=== PATIENT | female | born 1930 | race Caucasian/White ===

== ENCOUNTER 2016-10-29 20:59 | Emergency (ER) | payer MEDICARE ==
--- NOTE | 2016-10-29 22:06 | ED ---
Burn - HPI Summary HPI Summary: 86 female presents with complaints of a burn on her right back shoulder after falling asleep on a heating pad. Patient states she has not looked at it however was unable to lay down in bed because of the burning and sensitivity. Patient states she always uses her heating pad for a sore back but she forgot to turn it off before falling asleep earlier this afternoon 10/29/16. When she woke up it was on burning on her right shoulder. Denies any weeping. Has no other complaints of this time. +Hypertension. She put vasoline on the area prior to arrival. - History of Current Complaint Chief Complaint: EDBurnSmokeInh Stated Complaint: MARQUEZ ON UPPER BACK FROM HEATING PAD Time Seen by Provider: 10/29/16 21:13 Hx Obtained From: Patient Occurred: Hours Ago Length of Exposure: Hours Onset Severity: Mild Current Severity: Mild Pain Intensity: 8 Pain Scale Used: 0-10 Numeric Location: RUE - back right shoulder blade Character: Direct Thermal Contact - from a heating pad Aggravating: Nothing Alleviating: Nothing Associated Signs & Symptoms: Positive: Negative - Allergy/Home Medications Allergies/Adverse Reactions: Allergies Allergy/AdvReac Type Severity Reaction Status Date / Time Penicillins Allergy Intermediate Hives Verified 12/03/15 11:05 PMH/Surg Hx/FS Hx/Imm Hx Endocrine/Hematology History: Denies: Hx Diabetes, Hx Systemic Lupus Erythematosus Cardiovascular History: Reports: Hx Hypertension - ON DAILY MEDS Denies: Hx Congestive Heart Failure Respiratory History: Reports: Other Respiratory Problems/Disorders - radiation left side neck 2011 History: Denies: Hx Dialysis, Hx Renal Disease Musculoskeletal History: Reports: Hx Arthritis - HANDS, Other Musculoskeletal History - back pain and surgery, hx bilat wrist fx Denies: Hx Rheumatoid Arthritis, Hx Scoliosis Sensory History: Reports: Hx Cataracts - BILATERAL, Hx Contacts or Glasses - GLASSES Opthamlomology History: Reports: Hx Cataracts - BILATERAL, Hx Contacts or Glasses - GLASSES Neurological History: Reports: Other Neuro Impairments/Disorders - RADIATION AND CHEMO 2012 FOR LYMPHOMA Denies: Hx Headaches - Cancer History Cancer Type, Location and Year: breast ca left, basal cell, lymphoma Hx Chemotherapy: Yes - LYMPHOMA 2011 Hx Radiation Therapy: Yes - BREAST 1986,LYMPHOMA 2011 - Surgical History Surgery Procedure, Year, and Place: hysterectomy 1978 [facility] ,lumpectomy left BREAST [facility], [id number] BILATERAL CATARACTS [id number] HERNIATED LUMBER DISK [facility] [place] Anesthesia Reactions: No Infectious Disease History: No Infectious Disease History: Denies: Traveled Outside the [place] in Last 30 Days - Social History Alcohol Use: Rare Alcohol Amount: FEW DRINKS A YEAR, SPECIAL OCCASSIONS Substance Use Type: Reports: None Smoking Status (MU): Never Smoked Tobacco Have You Smoked in the Last Year: No Review of Systems Constitutional: Negative Eyes: Negative ENT: Negative Cardiovascular: Negative Respiratory: Negative Musculoskeletal: Negative Positive: Other - burn Neurological: Negative Psychological: Normal All Other Systems Reviewed And Are Negative: Yes Physical Exam Triage Information Reviewed: Yes Vital Signs On Initial Exam: Initial Vitals Temp Pulse Resp BP Pulse Ox 98.3 F 84 16 190/82 100 10/29/16 21:08 10/29/16 21:08 10/29/16 21:08 10/29/16 21:08 10/29/16 21:08 Patient is due for another dose of HTN medication around 7am. Patient's BP will be re-taken and monitored. Vital Signs Reviewed: Yes Appearance: Positive: Well-Appearing, No Pain Distress, Well-Nourished Skin: Positive: Warm, Skin Color Reflects Adequate Perfusion, Heat Injury - area of complaint is back right shoulder blade. No erythema, edema, weeping, rash or discoloration noted. Skin is intact. no sores noted. patient states it is somewhat tender/sensitive to touch.. Negative: Scaly Skin/Lesions, Weeping Skin/Lesions, Erythema @ Head/Face: Positive: Normal Head/Face Inspection Eyes: Positive: Normal ENT: Positive: Normal ENT inspection Neck: Positive: Supple, Nontender, No Lymphadenopathy Respiratory/Lung Sounds: Positive: Clear to Auscultation, Breath Sounds Present Cardiovascular: Positive: Normal, RRR, Pulses are Symmetrical in both Upper and Lower Extremities Abdomen Description: Positive: Nontender Musculoskeletal: Positive: Normal, Strength/ROM Intact Neurological: Positive: Normal, Sensory/Motor Intact, Alert, Oriented to Person Place, Time Psychiatric: Positive: Normal Burn Calculation - Trunk / Post. 18% Trunk /Post. 1st De - right shoulder blade, no signs of burn however sensitivity - Total 1st Deg Total: 2 Total % BSA: 2 - [place] Formula for Fluid Resuscitation Weight: 122 lb 24 -Hour Fluid Replacement: 0.0 Diagnostics - Vital Signs Vital Signs Temp Pulse Resp BP Pulse Ox 10/29/16 21:08 98.3 F 84 16 190/82 100 - Laboratory Lab Statement: Any lab studies that have been ordered have been reviewed, and results considered in the medical decision making process. Burn Course/Dx - Course Course Of Treatment: patient will be given a lidoderm patch to help with pain and burning. told to machine operator picker some aloe-vera or honey and to use it on area of sensitivity/burn. Encouraged not to use heating pad or any hot compresses/water on the area. aware of worsening signs and symptoms and educated on shingles in case this may be the start of it and if it wasn't the heating pad. no signs of burn or rash noted on physical exam at this time. - Diagnoses Provider Diagnosis: Superficial burn, Skin sensitivity Discharge - Discharge Plan Condition: Stable Disposition: HOME Patient Education Materials: Superficial Burn (ED) Referrals: Hamzah Suarez MD [Primary Care Provider] - Additional Instructions: Use over the counter Aloe-Vera, honey or antibiotic cream to help sooth burn. You may use cool/room temperature compresses however do not use very hot or very cold compresses. Do not use heating pad. Treat as as a sun burn, it will be sensitive. If symptoms worsen or you develop persistent burning with discharge, reddening, rash or fever/chills please seek medical attention.
[2016-10-29] MEDS ORDERED: Lidocaine PATCH 5%* 1 PATCH TRANSDERM ONE (22:08)
[2016-10-29 23:19] VITALS: BP 160/79
[2016-10-30] MEDS ORDERED: Lidocaine Patch REMOVE* 1 NOTE MISC SCH (21:00)
== END 2016-10-29 23:11 | disposition home or self-care (01) ==
LOC: ED 20:59
DX: T22.151A Burn of first degree of right shoulder, initial encounter (principal); M25.511 Pain in right shoulder; X08.8XXA Exposure to other specified smoke, fire and flames, initial encounter; Y93.9 Activity, unspecified; Y92.9 Unspecified place or not applicable; Y99.9 Unspecified external cause status
CPT/HCPCS: 99281; A9270-GY

== ENCOUNTER 2017-03-09 16:31 | Observation (INO) | payer MEDICARE ==
--- NOTE | 2017-03-09 17:13 | RAD ---
Indication: Code Tovar. Neurological changes. History of lymphoma Comparison: No relevant prior exams available on the [facility] [place] [facility] PACS for comparison. Technique: Noncontrast CT vertex of skull through foramen magnum. Report: Negative for intra or extra-axial hemorrhage. Negative for moreira matter white matter obscuration, intra or extra-axial hemorrhage, or mass effect. Decreased density in the periventricular and subcortical white matter while non-specific is most likely due to chronic microangiopathy. Moderate prominence of the cerebral sulci and cerebellar fissures reflecting atrophy. Unremarkable ventricles and basal cisterns. Unremarkable orbital contents. No suspicious calvarial or skull base lesion evident. Grossly clear visualized paranasal sinuses and mastoid air spaces. Unremarkable scalp. IMPRESSION: 1. Negative for intracranial hemorrhage or compelling CT stigmata of acute ischemic stroke. 2. Mild to moderate involutional change and stigmata of chronic small vessel ischemic disease. 3. No acute intracranial process evident. Results discussed with Dr. Lua 03/09/2017 5:09 PM EDT
--- NOTE | 2017-03-09 17:19 | RAD ---
Indication: Speech difficulty, confusion. Code moreira. History of lymphoma. Comparison: April 16, [address] Technique: Sitting AP 1702 hours Report: Elevated lung volumes and both diffuse mild prominence of the interstitial markings and patchy rarefaction of the mid to upper lung zone interstitial markings. Costochondral calcifications noted most prominent at the LEFT lower lung zone. No focal pulmonary lesions, alveolar consolidation, pleural effusion, pneumothorax. The heart, pulmonary vasculature, and mediastinal contours are unremarkable. No suspicious focal osseous lesions evident. IMPRESSION: Stigmata of obstructive lung disease. No acute pulmonary or cardiac process evident.
[2017-03-09 17:29] LABS: Hematocrit 38 % (35-47); Hemoglobin 12.8 g/dl (12.0-16.0); Mean Corpuscular HGB Conc 34 g/dl (31-36); Mean Corpuscular Hemoglobin 31 pg (27-31); Mean Corpuscular Volume 92 fL (80-97); Mean Platelet Volume 8 um3 (7.4-10.4); Red Cell Distribution Width 13 % (10.5-15); White Blood Count 4.4 10^3/ul (3.5-10.8)
[2017-03-09] MEDS ORDERED: Metoprolol Tartrate IV* 1 MG/ML 5 ML VIAL IV ONE (17:34)
[2017-03-09 17:44] LABS: Albumin 4.4 g/dL (3.2-5.2); BUN/Creatinine Ratio 17.3 (8-20); Calcium 9.4 mg/dL (8.6-10.3); EGFR African American 93.8 (>60); EGFR Non-African American 72.9 (>60); Globulin 2.1 g/dL (2-4); HDL Cholesterol 72.4 mg/dL; Potassium 3.8 mmol/L (3.5-5.0); Total Bilirubin 0.5 mg/dL (0.2-1.0); Total Protein 6.5 g/dL (6.4-8.9)
[2017-03-09 17:46] LABS: Urine Bilirubin Negative (Negative); Urine Glucose Negative (Negative); Urine Nitrite Negative (Negative)
--- NOTE | 2017-03-09 18:25 | ED ---
Progress - Progress Note Progress Note: Pt signed out by Dr. Lua. She presents w/ an aphasia episode this morning - difficulty finding her words. This lasted for a few hours then resolved. Daughter woke a few hours later and did not observe pt w/ language difficulty, but reports pt was confused about some things (ie. programming remote control, forgetful during shopping) and just "didn't seem herself". Pt denies headache, visual change, weakness and daughter denies slurred speech, facial droop or balance issue. Her BP was found to be quite elevated here today - repeat BP after receiving IV lopressor resulted in drop from 219 systolic to 184. Pt has been taking home meds as directed w/o changing doses or missing a doses. Takes HCTZ and Na is low today (128 - she has been here multiple times before) Chloride is also low at 96. Otherwise, labs are unremarkable. CXR normal. ECG reveals a PAC and recurrent finding of mild ST elevation in V1 seen on previous ECG from 2007 and unchanged - otherwise NSR. Denies NSAID use. No recent injuries to report. Only new sx is feeling cold more than usual yesterday and today. She was found to have Lt finger dysmetria while here tonight and so CT brain was performed. This was WNL. Pt has h/o multiple CA's but no cardiac nor neuro pathology in her hx other than HTN - her trends indicates levels ranging from 140's-170's - 190's is highest on record prior to today. Spoke w/ Dr. Willis, neurology, who suggested diff dx of TIA, CVA, HTN encephalopathy, and seizure. Pt does not require any STAT testing beyond what's already been ordered at the moment but may benefit from MRI w/wo gadolinium tonight and EEG tomorrow morning. She agrees to see pt for consult. Also spoke w/ Wes Rodriguez, REHABILITATION MANAGER, who agrees to consult for admission so observation and testing may be continued. Pt and daughter agree w/ plan. Pt in stable condition upon transferring care to hospital team for admission as mentioned above. Course/Dx - Diagnoses Provider Diagnoses: CVA (cerebral vascular accident), Hypertensive urgency
[2017-03-09] MEDS ORDERED: hydrALAZINE IV* 20 MG/ML VIAL IV SLOW PU PRN (18:37)
[2017-03-09] MEDS ORDERED: Aspirin Low Dose CHEW TAB* 81 MG PO ONE (18:37)
[2017-03-09] MEDS ORDERED: Ondansetron INJ* 2 MG/ML VIAL IV PRN (18:37)
[2017-03-09] MEDS ORDERED: Iohexol 350* (CONTRAST) 500 ML MDV IV ONE (18:46)
[2017-03-09 19:11] LABS: TSH (Thyroid Stimulating Horm) 1.69 mcIU/mL (0.34-5.60)
[2017-03-09] MEDS ORDERED: Gadoteridol* (CONTRAST) 279.3 MG/ML 10 ML IV ONE (19:20)
--- NOTE | 2017-03-09 20:04 | RAD ---
Indication: TIA with episode of difficulty finding words. History of breast cancer. Comparison: March 09, 2017 CT. Technique: [email or web address] 1.5 Chayo [id number] with GEM suite. MRI brain without and with contrast. 10 mL ProHance administered IV. Report: Diffusion series is negative for acute or subacute ischemia. Susceptibility series is negative for stigmata of hemosiderin deposition to indicate previous hemorrhage. Mild prominence of the cerebral sulci and cerebellar fissures reflecting atrophy. Unremarkable ventricles and basal cisterns. No intra or extra-axial fluid collection evident. Moderately severe burden of periventricular and subcortical white matter T2/FLAIR hyperintensities without mass effect or enhancement. No intra or extra-axial enhancing lesions evident. Preserved major intracranial flow-voids. Unremarkable orbital contents. Clear paranasal sinuses and mastoid air spaces. No suspicious calvarial or skull base lesion evident. Unremarkable scalp. IMPRESSION: 1. No evidence for acute or subacute ischemia. 2. No evidence for intra or extra-axial metastatic lesions. 3. Involutional change and periventricular and subcortical white matter signal abnormalities without enhancement or mass effect while not specific most likely reflecting chronic small vessel ischemic disease.
[2017-03-09] MEDS: Heparin VIAL(*) 5000 UNITS/ML VIAL (FIVE THOUSAND) SUBCUT SCH (21:36)
--- NOTE | 2017-03-09 22:42 | RAD ---
INDICATION: TIA. Resolved symptoms. COMPARISON: No relevant prior exams available on the [facility] PACS for comparison. TECHNIQUE: Multidetector CT images were obtained from the aortic arch to the vertex of the head with 80 mL Omnipaque 350 IV contrast. Arterial phase of enhancement. Multiplanar reformation including maximum intensity projection. 3-D arterial volume rendering. Stenosis estimations based on denominator of distal arterial diameter. NECK ANGIOGRAM REPORT: Linear scarring at the lung apices. Normal configuration of the branch vessels at the aortic arch. Calcific and noncalcific plaque results in long segment approximate 60% stenosis of the LEFT subclavian artery. Mild calcific and noncalcific plaque at the RIGHT carotid bulb and proximal internal carotid artery results in approximate 20% stenosis. Negative for significant atherosclerotic plaque at the LEFT carotid bifurcation. The internal carotid arteries are tortuous. Artifact from dense contrast in the RIGHT subclavian vein and reflux contrast to the RIGHT internal jugular vein obscures the origin of the RIGHT vertebral artery. Normal opacification of the nonobscured segment of the RIGHT vertebral artery without evidence for stenosis or occlusion. Patent tortuous LEFT vertebral artery. NECK ANGIOGRAM IMPRESSION: 1. Negative for hemodynamic significant carotid stenosis. 2. Patent vertebral arteries with limited assessment of the proximal segment of the RIGHT vertebral artery due to artifact as noted. 3. 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 HEAD ANGIOGRAM REPORT: Unremarkable intracranial internal carotid arteries as well as the M1 and M2 segments of the middle cerebral arteries and A1 and A2 segments of the anterior cerebral arteries. Suggestion of a patent anterior communicating artery. Unremarkable basilar artery and cerebellar artery origins. Patent posterior cerebral arteries are supplied primarily by the posterior circulation with normal variant hypoplastic posterior communicating arteries. No intracranial aneurysm or vascular malformation evident. Normal opacification of the dominant dural venous sinuses. HEAD ANGIOGRAM IMPRESSION: Normal variation without pathologic finding of the dominant central intracranial arterial vasculature. Negative for central large vessel arterial stenosis or occlusion. Negative for intracranial aneurysm. CPT II: CPT II Codes: 3100F
--- NOTE | 2017-03-10 04:02 | HP ---
CC: Dr. Jacobsen; Dr. Willis * HISTORY AND PHYSICAL: DATE OF ADMISSION: 03/09/17 PRIMARY CARE PROVIDER: Dr. Jacobsen. ATTENDING PHYSICIAN: Jens Thomas MD * (DICTATED BY JEFF HERNANDES NP) CHIEF COMPLAINT: Trouble with speech. HISTORY OF PRESENT ILLNESS: Ms. Ravi is an 87-year-old female patient. She has a history of breast cancer, lymphoma, hypothyroidism, and a history of hypertension. She comes in to the ER today stating that this morning it was noticed that she was having trouble getting her words out. She knew what she wanted to say, but her speech was slower than her baseline and she had some associated left arm numbness. She is right handed. She said that she did not have any facial drooping. No slurring of the words. There was no word salad. She denied having any weakness to one side. No trouble with gait. There was no fevers or chills. No shortness of breath. No abdominal pain. She denied having any nausea. She was concerned though to the point because she thought there was something wrong. The daughter noted that she appeared to be confused. She called her primary and they referred her to the ER. She was evaluated down here. When she came here, it was noted that her blood pressure initially was 219/95 and there was concern because she appeared to have some ataxia on the left upper extremity and because of this, we were asked to evaluate for admission. PAST MEDICAL HISTORY: Significant for: 1. Breast cancer. 2. Lymphoma. 3. Hypothyroidism. 4. Hypertension. PAST SURGICAL HISTORY: 1. She has had a lumpectomy. 2. Hysterectomy. 3. Back surgery. HOME MEDICATIONS: Include: 1. Oxycodone 5 mg p.o. b.i.d. as needed. 2. Lisinopril 30 mg p.o. daily. 3. Synthroid 50 mcg daily. 4. Hydrochlorothiazide 12.5 mg p.o. every other day. 5. Gabapentin 300 mg in the morning, 600 mg at bedtime. ALLERGIES TO MEDICATIONS: Include PENICILLIN. FAMILY HISTORY: Mother had a history of cancer. Father had a history of coronary artery disease. SOCIAL HISTORY: Does not smoke. She does not drink. She lives alone. Surrogate decision maker is her daughter. REVIEW OF SYSTEMS: There is no documented fever. She denied having any significant weight change. There was no double vision. Denied having any ear discharge. No rhinorrhea. No sore throat. No thyroid enlargement. Denied having any chest pain. No orthopnea. No nocturnal dyspnea. There is abdominal pain. No nausea. No vomiting. No dysuria. No frequency. No seizure. No loss of consciousness. No pruritus and no skin ulcerations. Review of 14 systems completed, all others negative. PHYSICAL EXAMINATION GENERAL: At this time, Ms. Ravi is an 87-year-old female patient. She appears to be well nourished, well developed. She does not appear to be in any acute distress. VITAL SIGNS: Now, blood pressure 174/80, pulse of 64, respirations 19, O2 sat 96%, and temperature 98.9. HEENT: Head is atraumatic and normocephalic. Eyes: EOMs are intact. Sclerae were anicteric and not pale. Throat: Oral mucosa appears to be moist. No oropharyngeal erythema. NECK: Supple. LUNGS: Clear to auscultation bilaterally. No wheezes, rales, or rhonchi. HEART: Sounds S1, S2. Regular rate and rhythm. No murmurs, rubs, or gallops. ABDOMEN: Soft, flat, and nontender. Bowel sounds present. EXTREMITIES: Pulses were 2+ throughout. She is able to move all 4 extremities with 5/5 strength. NEUROLOGIC: The patient is awake, she is alert, and she is oriented x3. Tongue midline. Interior Design Instructor are equal. No gross focal deficits with the exception of finger-to- nose on the left side, there does appear to be a little bit of ataxia. No gross focal deficits. Speech is clear. Cranial nerves II through XII are intact. SKIN: Intact. LABORATORY DATA AND DIAGNOSTIC STUDIES: Revealed WBC of 4.4, RBC of 4.10, hemoglobin 12.8, hematocrit 38, platelet count 216. INR 0.91. PTT of 24.1. Her sodium was 128, potassium 3.8, chloride 96, bicarb 28, BUN 13, creatinine of 0.75, glucose 103, lactate 0.8, calcium 9.4. Total bili 0.5, AST 22, ALT 15 , alk phos 75. Troponin 0.00. Albumin 4.4. Urine was obtained, it was negative. Brain CT also obtained today, which revealed negative for intracranial hemorrhage or CT stigmata of ischemic stroke. Mild to moderate involutional change, stigmata of chronic small vessel ischemic disease. No acute intracranial process. Chest x-ray today revealed stigmata of obstructive lung disease. No acute pulmonary cardiac process evident. EKG showed a sinus rhythm with a PAC, rate of 72, no ST elevation. She did have a little elevation in V1, but she has had this in the past. She did appear to have LVH. Review of previous EKG appears to be similar. Old medical records were reviewed. ASSESSMENT AND PLAN: Ms. Ravi is an 87-year-old female patient coming in to the ER today with complaints of difficulty with word finding and speech, difficulties. On evaluation today, there was concern for possible transient ischemic attack. We were asked to evaluate in consult. She has been admitted under observation status for: 1. Transient ischemic attack versus cerebrovascular accident versus seizure: At this point, Dr. Willis is going to go ahead and evaluate the patient. The plan is to get an MRI with and without contrast because of the history of malignancy to make sure there is not any metastasis to the brain or recurrent disease to the brain. Also look for stroke or transient ischemic attack. I will also get a CTA of the head and neck, echo with bubble study, start her on a baby aspirin. Her LDH was 139. She probably should be started on statin, but I will wait for Dr. Willis's to finish evaluating to discuss this with her. For the time being, certainly also in the differential hypertensive encephalopathy. Blood pressure now is down to 175 systolically. We will try to keep that blood pressure in that range, now between the 140 to 170 range, allow for permissive hypertension in the setting of possible cerebrovascular disease and we will place her on telemetry as well. We will continue to follow. Get frequent neuro checks. 2. Hypertension: Again, I will treat if her systolics get greater than 180. I have ordered p.r.n. hydralazine. We will continue her p.o. medication. 3. Hyponatremia: It is probably secondary to the hydrochlorothiazide usage, but I will check her TSH, cortisol, and I will also check +serum osmolality and urine sodium as well and we will continue to follow. 4. Lymphoma and breast cancer: Follow with her primary. 5. Hypothyroidism: Continue Synthroid. 6. DVT prophylaxis: She will be placed on heparin subcu. 7. Code status: She wishes to be a DNR. 8. Fluids, electrolytes, and nutrition: She can have a heart healthy diet. TIME SPENT: Time spent on the admission was approximately 60 minutes; greater than half the time was spent [id number] with the patient obtaining my history and physical, other half the time spent going over the plan of care with the patient and implementing plan of care. I did discuss the plan of care with my attending, Dr. Thomas; he is in agreement. JEFF HERNANDES, MYKE [id number]/CPS #: [id number]
--- NOTE | 2017-03-10 05:07 | CONS ---
CC: Dr. Caban. CONSULTATION REPORT: DATE OF CONSULT: 03/09/17 CONSULT REQUEST: Consult was requested from the emergency room by Dr. Lua. REASON FOR CONSULT: Difficulty speaking. 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 This morning she got out of bed, got coffee, and about an hour later when she tried to speak she found she had to think about every word she was going to say and this lasted for about 2 hours, and she could get the right words out, but it was difficult for her. Associated with this she had an overall feeling of weakness and decreased confidence, however, no other focal neurological symptoms. In the emergency room, she had blood pressure, which was noted to be as high as 218/102 requiring treatment with Lopressor. At this point, she feels her symptoms have resolved. She denies headache, loss of vision, double vision, change in mood or cognition. No numbness, weakness of arms or legs, change in coordination or gait. She feels her speech is now back to normal. PAST MEDICAL HISTORY: 1. Ms. 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 2. Basal cell carcinoma. 3. Left breast cancer, status post lumpectomy and radiation. 4. Hypertension. 5. Hypothyroidism. 6. Partial thyroidectomy. 7. Hysterectomy. 8. Back surgery at L5 with residual back pain. CURRENT MEDICATIONS: Include: 1. Oxycodone 5 mg p.o. b.i.d. 2. Levothyroxine 50 mcg p.o. daily. 3. Hydrochlorothiazide 12.5 mg p.o. daily. 4. Lisinopril 30 mg p.o. daily. 5. Gabapentin 300 mg p.o. 1 tablet in the morning and 2 tablets at night. ALLERGIES: Include to PENICILLIN, which caused hives. SOCIAL HISTORY: Gertrude Ravi does not smoke, she rarely drinks alcohol. She is here in the emergency room with her daughter. REVIEW OF SYSTEMS: On review of systems, there has been no chest pain, chest pressure, palpitations, shortness of breath, change in bowel or bladder habits. Increased for frequency of urination, burning with urination. There has been no weight loss, drenching night sweats or high fevers of unknown reason. For further review of systems please see HPI. Of note, there has also been no history of rashes or recent skin condition. She has had some bug bites with mosquitoes. PHYSICAL EXAMINATION: On examination, Gertrude Ravi's blood pressure was 174/80, her pulse was 64, her respiratory rate was 19, saturation was 96%, her temperature was 98.9 degrees Fahrenheit. She had a regular cardiac rhythm. Her lungs are clear to auscultation. There was no evidence of peripheral edema. She had good peripheral pulses. There was no evidence of rash or petechiae. She was awake, alert, articulate, had normal language function, adequate fund of knowledge. Her pupils were equal and responsive to light. I had a hard time visualizing her fundi. She had full extraocular movements with no nystagmus and full erickson to confrontation. Her facial expression, sensation , and hearing were equal. Palate was upgoing. Tongue was midline. Sternocleidomastoid and trapezius were 5/5 in strength. There was normal bulk and tone. No pronator drift with full strength in the upper and lower extremities. There was no asymmetry to pinprick, cold, or light touch. Vibration sensation was decreased by about 20 seconds to the large toes. Proprioception was intact. Reflexes were 2+ in the upper extremities, 1+ in the lower extremities and symmetric. There was no dysmetria with finger-to- nose and [id number] movements. Gait was not tested given clinical symptoms and concern regarding TIA/stroke. The patient left examining room to go to MRI scanner. DIAGNOSTIC STUDIES/LAB DATA: Includes CT of the brain, which showed atrophy and small vessel ischemic disease. Her laboratory tests revealed CBC with normal white count, hemoglobin, hematocrit, and platelets. There was slight increase in monocyte percentage at 9.9. Her metabolic panel showed sodium that was low at 128, her chloride was low at 96, and glucose was elevated at 103, lactate was 0.8, troponin was 0. Lipid profile showed total cholesterol of 221, LDL was 139, HDL was 72.4, triglycerides 50, TSH was 1.69. IMPRESSION: Gertrude Ravi is an 87-year-old woman with history of hypertension, as well as history of large cell lymphoma, status post radiation chemotherapy and breast cancer, status post lumpectomy and radiation, who presents with episode of difficulty speaking. The description and the length of the event suggest that there was dysfunction in the dominant hemisphere for unclear reasons. Certainly, TIA stroke is on the differential diagnosis and she is on her way to the MRI scanner and she will be admitted for workup of TIA. She does have a history of radiation to her left neck and I would suggest checking at minimum ultrasound on the carotids to look for stenosis. She was significantly hypertensive coming in today's visit that one cannot exclude a component of hypertension contributing her symptoms. Differential diagnosis also does include seizure, and therefore she is getting an MRI of the brain with contrast to look for underlying neoplasm as well as EEG to look for epileptiform activity. She has received an aspirin in the emergency room. Dr. Bledsoe will be following for the neurology service in the morning. The patient was given education regarding symptoms, differential diagnosis, plan for workup, the change of neurology service to another practitioner in the morning. All questions were answered. TIME SPENT: Over an hour was spent in direct [id number] patient care, and education was provided to both patient and daughter. [id number]/[facility] #: [id number] TJ
[2017-03-10] MEDS: Levothyroxine TAB* 50 MCG TAB PO SCH (05:39)
[2017-03-10] MEDS: Heparin VIAL(*) 5000 UNITS/ML VIAL (FIVE THOUSAND) SUBCUT SCH ×3 (05:39→22:22)
[2017-03-10 06:42] LABS: Hematocrit 36 % (35-47); Hemoglobin 12.3 g/dl (12.0-16.0); Mean Corpuscular HGB Conc 34 g/dl (31-36); Mean Corpuscular Hemoglobin 32 pg (27-31); Mean Corpuscular Volume 92 fL (80-97); Mean Platelet Volume 8 um3 (7.4-10.4); Red Blood Count 3.89 10^6/ul (4.0-5.4); Red Cell Distribution Width 13 % (10.5-15); White Blood Count 3.7 10^3/ul (3.5-10.8)
[2017-03-10 06:56] LABS: BUN/Creatinine Ratio 16.3 (8-20); Calcium 8.8 mg/dL (8.6-10.3); EGFR African American 87.1 (>60); EGFR Non-African American 67.7 (>60); HDL Cholesterol 61.7 mg/dL; Potassium 3.6 mmol/L (3.5-5.0)
[2017-03-10] MEDS: Aspirin Low Dose CHEW TAB* 81 MG PO SCH (08:25)
[2017-03-10] MEDS: Gabapentin CAP(*) 300 MG PO SCH (08:25)
[2017-03-10] MEDS: Lisinopril TAB* 10 MG PO SCH (08:26)
--- NOTE | 2017-03-10 09:56 | ECHO ---
Patient: CATARINO FREITAS [facility] Rec#: [id number] : 1930 Date: 03/10/2017 Age: 87y Height: 162.56 cm / 64.0 in Weight: 56.25 kg / 124.0 lbs Sex: F BSA: 1.6 Room#: 435 Admit Date#: 03/09/2017 Type: Inpatient Referring: Wes Rodriguez NP Reading: Dinah Newton MD Prevention Rn: Darling Bustos RDCS CC: Darling Willis MD CC: Hamzah Suarez MD Transthoracic Echocardiogram Indication: TIA BP: 140/74 HR: 69 Rhythm: NSR Findings History: Breast cancer anf Lymphoma,s/p rad rx and chemotherapy,HTN,hypothyroid. Technical Comments: The study quality is good. Completed at 0815. Left Ventricle: The left ventricular chamber size is normal. Mild concentric left ventricular hypertrophy is observed. Global left ventricular wall motion and contractility are within normal limits. The estimated ejection fraction is 55-60%. Abnormal left ventricular diastolic filling is observed, consistent with impaired relaxation. Left Atrium: The left atrium is moderately dilated. Right Ventricle: The right ventricular cavity size is normal. The right ventricular global systolic function is normal. Right Atrium: The right atrial cavity size is normal. There is no patent foramen ovale visualized. A patent foramen ovale is not demonstrated with color Doppler and agitated contrast. Aortic Valve: The aortic valve is trileaflet. There is mild aortic regurgitation. 2 small jets, one medial, one at the annulus between the RCC and LCC. There is no evidence of aortic stenosis. Mitral Valve: The mitral valve leaflets are mildly thickened. There is mild to moderate mitral regurgitation. There is no evidence of mitral stenosis. Tricuspid Valve: The tricuspid valve leaflets are normal. There is mild tricuspid regurgitation. No pulmonary hypertension is noted. There is no tricuspid stenosis. Pulmonic Valve: The pulmonic valve appears normal. There is trace to mild pulmonic regurgitation. There is no pulmonic stenosis. Pericardium: The pericardium appears normal. Aorta: There is no dilatation of the ascending aorta. There is no dilatation of the aortic arch. There is no dilation of the aortic root. Pulmonary Artery: The main pulmonary artery appears normal. Venous: The inferior vena cava appears normal in size. There is a greater than 50% respiratory change in the inferior vena cava dimension. Contrast: Normal saline was used as contrast for the bubble study. Intravenous contrast was used to help determine presence of intracardiac shunting. Intravenous agitated saline contrast was used to assess intracardiac shunting. Conclusions Mild concentric left ventricular hypertrophy is observed. Global left ventricular wall motion and contractility are within normal limits. The estimated ejection fraction is 55-60%. Abnormal left ventricular diastolic filling is observed, consistent with impaired relaxation. The right ventricular global systolic function is normal. There is mild aortic regurgitation. 2 small jets. There is mild to moderate mitral regurgitation, closer to mild, multiple small jets. There is mild tricuspid regurgitation. No patent foramen ovale demonstrated with color Doppler and agitated contrast. Compared with prior study of 10/08/11, ventricular function is stable, mitral insufficiency has increased from trace, AI is newly noted. Measurements Name Value Normal Range RVIDd (AP) 2D 2.29 cm (0.9 - 2.6) RVDdMajor (2D) 3.1 cm (2.2 - 4.4) RAd ISD 4CH 4.7 cm (3.4 - 4.9) RA (A4C)W 2.9 cm (2.9 - 4.6) IVSd (2D) 1.1 cm (0.6 - 1) LVPWd (2D) 1.11 cm (0.6 - 1) LVIDd (2D) 3.66 cm (3.6 - 5.4) LVIDs (2D) 2.87 cm - LV FS (2D) 21.74 % (25 - 45) EF Teichholz (2D) 44.82 % - Aortic Annulus 1.6 cm (1.4 - 2.6) Ao root diameter (2D) 1.63 cm (2.1 - 3.5) Ascending Ao 2.48 cm (2.1 - 3.4) Aortic arch 2.55 cm (1.8 - 3.4) Descending Ao 0.5 cm - LA dimension (AP) 2D 3.2 cm (2.3 - 3.8) LAd ISD 4CH 4.1 cm (2.9 - 5.3) LA ISD 4CH W 4.2 cm (2.5 - 4.5) Name Value Normal Range LA ESV SP 4CH (A/L) 65.98 ml - LA ESV SP 2CH (A/L) 66.1 ml - LA ESV BP (A/L) 67.33 ml - LA ESV BP (A/L) index 33.07 ml/m2 - LA ESV SP 4CH (MOD) 57.4 ml - LA ESV SP 2CH (MOD) 61.34 ml - Name Value Normal Range MV E-wave Vmax 0.67 m/sec - MV deceleration time 211.54 msec - MV A-wave Vmax 0.66 m/sec - MV E:A ratio 1.02 ratio - LV septal e' Vmax 0.04 m/sec - LV lateral e' Vmax 0.07 m/sec - LV E:e' septal ratio 17.5 ratio - LV E:e' lateral ratio 10 ratio - Name Value Normal Range AV Vmax 1.34 m/sec - AV VTI 25.85 cm - AV peak gradient 7.14 mmHg - AV mean gradient 2.54 mmHg - LVOT Vmax 1.1 m/sec - LVOT VTI 23.73 cm - LVOT peak gradient 4.87 mmHg - LVOT mean gradient 2.24 mmHg - AR PHT 582.36 msec - AR peak gradient 82.51 mmHg - Name Value Normal Range TR Vmax 2.19 m/sec - TR peak gradient 19.35 mmHg - RAP 3 mmHg - RVSP 26 mmHg - IVC diameter 1.1 cm - Name Value Normal Range PV Vmax 0.84 m/sec - PV peak gradient 2.85 mmHg -
--- NOTE | 2017-03-10 09:57 | PN ---
Subjective Date of Service: 03/10/17 Interval History: Patient seen and examined at bedside. Ms. Ravi is ambulating in the room and eager to go. She reports a transient episode of speech difficulty last evening, where she really had to think about what she wanted to say and how to formulate her words. She described some left sided movement difficulties as well. This morning, she denies new weakness, word/speech difficulties, CP, SOB, abd pain, n /v, dysuria. She denies any previous hx with her blood pressure. Family History: Unchanged from Admission Social History: Unchanged from Admission Past Medical History: Unchanged from Admission Objective Active Medications: Aspirin (Aspirin Low Dose Tab*) 81 mg PO DAILY [facility] Last Admin: 03/10/17 08:25 Dose: 81 mg Gabapentin (Neurontin Cap(*)) 300 mg PO QAM [facility] Last Admin: 03/10/17 08:25 Dose: 300 mg Gabapentin (Neurontin Cap(*)) 600 mg PO QPM [facility] Heparin Sodium (Porcine) (Heparin Vial(*)) 5,000 units SUBCUT Q8HR [facility] Last Admin: 03/10/17 05:39 Dose: 5,000 units Hydralazine HCl (Apresoline Iv*) 5 mg IV SLOW PU Q6H PRN PRN Reason: BLOOD PRESSURE Levothyroxine Sodium (Synthroid Tab*) 50 mcg PO DAILY@0600 [facility] Last Admin: 03/10/17 05:39 Dose: 50 mcg Lisinopril (Prinivil Tab*) 30 mg PO DAILY [facility] Last Admin: 03/10/17 08:26 Dose: 30 mg Ondansetron HCl (Zofran Inj*) 4 mg IV Q6H PRN PRN Reason: NAUSEA Vital Signs 03/09/17 03/09/17 03/09/17 18:39 19:00 19:11 Temperature Pulse Rate 65 67 Respiratory 20 18 19 Rate Blood Pressure 197/84 (mmHg) O2 Sat by Pulse 97 99 Oximetry 03/09/17 03/09/17 03/09/17 20:00 20:33 21:49 Temperature 98.2 F Pulse Rate 69 Respiratory 16 Rate Blood Pressure 174/85 (mmHg) O2 Sat by Pulse 94 94 96 Oximetry 03/10/17 03/10/17 03/10/17 00:14 03:43 07:25 Temperature 97.8 F 98.4 F 98.0 F Pulse Rate 63 62 68 Respiratory 16 16 18 Rate Blood Pressure 134/64 140/74 154/73 (mmHg) O2 Sat by Pulse 97 94 97 Oximetry 03/10/17 03/10/17 03/10/17 08:00 08:25 09:28 Temperature Pulse Rate Respiratory 18 18 Rate Blood Pressure (mmHg) O2 Sat by Pulse 97 99 Oximetry Oxygen Devices in Use Now: None Appearance: Elderly female, ambulating in room, NAD Eyes: PERRLA Ears/Nose/Mouth/Throat: Clear Oropharnyx, Mucous Membranes Moist Neck: NL Appearance and Movements; NL JVP Respiratory: Symmetrical Chest Expansion and Respiratory Effort, Clear to Auscultation Cardiovascular: NL Sounds; No Murmurs; No JVD, RRR Abdominal: NL Sounds; No Tenderness; No Distention Extremities: No Edema Skin: No Rash or Ulcers Neurological: Alert and Oriented x 3, NL Gait - mild drift to left, NL Muscle Strength and Tone, - - negative pronator drift, finger to nose, heel to corley intact, furnace setter equal bilaterally in upper/lower extremities, CN II-XII grossly intact Lines/Tubes/Other Access: Clean, Dry and Intact Peripheral IV Nutrition: Taking PO's Result Diagrams: 03/10/17 05:23 03/10/17 05:23 Assess/Plan/Problems-Billing Assessment: Ms. Rvai is an 87 yo female with a PMH of lymphoma and breast cancer, hypothyroidism, and HTN who presented to the ED on 03/09 with concern for speech difficulties and hypertensive urgency. - Patient Problems (1) TIA (transient ischemic attack) Comment: Suspect TIA, given transient speech deficits May also represent hypertensive encephalopathy Appreciate neuro consult. Continue ASA, start statin. Bubble study negative, echo shows LVEF 55-60%, LVH, no wall motion abnormalities. CT brain negative for acute intracranial process. MRI brain shows no evidence for acute/subacute ischemia, metastatic lesions. 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 Negative for central large vessel arterial stenosis or occulsion, negative for intracranial aneurysm. (2) Hyponatremia Code(s): E87.1 - HYPO-OSMOLALITY AND HYPONATREMIA Comment: Resolving Follow up BMP as outpatient (3) HTN (hypertension) Code(s): I10 - ESSENTIAL (PRIMARY) HYPERTENSION Comment: Now more normotensive Continue lisinopril. (4) Hypothyroidism Current Visit: Yes Status: Chronic Code(s): E03.9 - HYPOTHYROIDISM, UNSPECIFIED Comment: Continue levothyroxine. (5) DVT prophylaxis Comment: SQ heparin Status and Disposition: OBV admit. Dc to home when medically stable.
--- NOTE | 2017-03-10 16:44 | PN ---
Hospitalist Progress Note Patient with recorded discharge BP of 192/90. Patient asymptomatic. Discussed with patient and her daughter. Patient advised to stay in hospital with concern for recurrence of previous TIA symptoms from yesterday. Patient agreed with further monitoring overnight. Start amlodipine.
[2017-03-10] MEDS ORDERED: amLODIPine TAB* 5 MG PO SCH (17:00)
[2017-03-10] MEDS ORDERED: Atorvastatin* 10 MG TAB PO SCH (17:00)
[2017-03-10] MEDS ORDERED: oxyCODONE TAB* 5 MG TAB PO PRN (17:03)
[2017-03-10] MEDS ORDERED: hydrALAZINE IV* 20 MG/ML VIAL IV SLOW PU ONE (17:11)
[2017-03-10] MEDS ORDERED: Acetaminophen TAB* 325 MG PO ONE (17:35)
[2017-03-10] MEDS ORDERED: Acetaminophen TAB* 325 MG ONE (17:41)
[2017-03-10] MEDS ORDERED: Gabapentin CAP(*) 300 MG PO SCH (18:00)
[2017-03-10] MEDS ORDERED: Acetaminophen TAB* 325 MG PO PRN (21:35)
[2017-03-11] MEDS: Heparin VIAL(*) 5000 UNITS/ML VIAL (FIVE THOUSAND) SUBCUT SCH (05:20)
[2017-03-11] MEDS: Levothyroxine TAB* 50 MCG TAB PO SCH (05:20)
[2017-03-11 08:06] VITALS: BP 118/64
--- NOTE | 2017-03-11 08:14 | PN ---
Subjective Date of Service: 03/11/17 Interval History: Patient seen and examined at bedside. Ms. Ravi is alert and denies any SINGLETON, fever/chills, CP, SOB, abd pain, n/v. She does report that she had a brief SINGLETON last evening when her BP was high and some nausea after receiving her amlodipine. Denies any further episodes. Patient advised to keep tabs on her SINGLETON , as she reports she doesn't usually get SINGLETON and notices that she gets them when her BP is high. She has an appointment with her PCP this afternoon and her daughter is in town to stay with her for a few nights for further observation. Family History: Unchanged from Admission Social History: Unchanged from Admission Past Medical History: Unchanged from Admission Objective Active Medications: Acetaminophen (Tylenol Tab*) 650 mg PO Q4H PRN PRN Reason: FEVER/PAIN Amlodipine Besylate (Norvasc Tab*) 5 mg PO DAILY [facility] Last Admin: 03/10/17 17:32 Dose: 5 mg Aspirin (Aspirin Low Dose Tab*) 81 mg PO DAILY [facility] Last Admin: 03/10/17 08:25 Dose: 81 mg Atorvastatin Calcium (Lipitor*) 10 mg PO 1700 [facility] Last Admin: 03/10/17 17:31 Dose: 10 mg Gabapentin (Neurontin Cap(*)) 300 mg PO QAM [facility] Last Admin: 03/10/17 08:25 Dose: 300 mg Gabapentin (Neurontin Cap(*)) 600 mg PO QPM [facility] Last Admin: 03/10/17 17:54 Dose: 600 mg Heparin Sodium (Porcine) (Heparin Vial(*)) 5,000 units SUBCUT Q8HR [facility] Last Admin: 03/11/17 05:20 Dose: 5,000 units Hydralazine HCl (Apresoline Iv*) 5 mg IV SLOW PU Q6H PRN PRN Reason: BLOOD PRESSURE Last Admin: 03/10/17 16:32 Dose: 5 mg Levothyroxine Sodium (Synthroid Tab*) 50 mcg PO DAILY@0600 [facility] Last Admin: 03/11/17 05:20 Dose: 50 mcg Lisinopril (Prinivil Tab*) 30 mg PO DAILY [facility] Last Admin: 03/10/17 08:26 Dose: 30 mg Ondansetron HCl (Zofran Inj*) 4 mg IV Q6H PRN PRN Reason: NAUSEA Oxycodone HCl (Roxycodone Tab*) 5 mg PO BID PRN PRN Reason: PAIN Last Admin: 03/10/17 17:17 Dose: 5 mg Vital Signs 03/10/17 03/10/17 03/10/17 08:25 09:28 10:25 Temperature Pulse Rate Respiratory 18 16 Rate Blood Pressure (mmHg) O2 Sat by Pulse 99 Oximetry 03/10/17 03/10/17 03/10/17 11:12 16:05 16:07 Temperature 97.8 F 98.3 F Pulse Rate 61 71 Respiratory 18 Rate Blood Pressure 136/66 172/84 192/90 (mmHg) O2 Sat by Pulse 99 97 Oximetry 03/10/17 03/10/17 03/10/17 17:07 17:17 17:54 Temperature Pulse Rate 80 Respiratory 16 18 16 Rate Blood Pressure 185/79 (mmHg) O2 Sat by Pulse 99 Oximetry 03/10/17 03/10/17 03/10/17 18:26 19:17 19:43 Temperature 97.6 F Pulse Rate 79 85 Respiratory 14 16 24 Rate Blood Pressure 163/64 138/71 (mmHg) O2 Sat by Pulse 99 99 Oximetry 03/10/17 03/10/17 03/10/17 19:49 20:03 23:51 Temperature 98.1 F Pulse Rate 73 Respiratory 16 16 Rate Blood Pressure 97/38 (mmHg) O2 Sat by Pulse 97 96 Oximetry 03/10/17 03/11/17 03/11/17 23:58 00:44 03:48 Temperature 99.0 F Pulse Rate 70 Respiratory 16 Rate Blood Pressure 100/40 118/51 (mmHg) O2 Sat by Pulse 97 96 Oximetry 03/11/17 07:25 Temperature 97.3 F Pulse Rate 71 Respiratory 18 Rate Blood Pressure 118/64 (mmHg) O2 Sat by Pulse 100 Oximetry Oxygen Devices in Use Now: None Appearance: Elderly female, sitting up in bed, NAD Eyes: PERRLA Ears/Nose/Mouth/Throat: Mucous Membranes Moist Neck: NL Appearance and Movements; NL JVP Respiratory: Symmetrical Chest Expansion and Respiratory Effort, Clear to Auscultation Cardiovascular: NL Sounds; No Murmurs; No JVD, RRR Abdominal: NL Sounds; No Tenderness; No Distention Neurological: Alert and Oriented x 3, - - CN II-XII grossly intact, strength/ residential program worker equal bilaterally Lines/Tubes/Other Access: Clean, Dry and Intact Peripheral IV Nutrition: Taking PO's Result Diagrams: 03/10/17 05:23 03/10/17 05:23 Assess/Plan/Problems-Billing Assessment: Ms. Ravi is an 87 yo female with a PMH of lymphoma and breast cancer, hypothyroidism, and HTN who presented to the ED on 03/09 with concern for speech difficulties and hypertensive urgency. - Patient Problems (1) TIA (transient ischemic attack) Comment: Suspect TIA, given transient speech deficits May also represent hypertensive encephalopathy Appreciate neuro consult. Continue ASA, statin. Bubble study negative, echo shows LVEF 55-60%, LVH, no wall motion abnormalities. CT brain negative for acute intracranial process. MRI brain shows no evidence for acute/subacute ischemia, metastatic lesions. 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 Negative for central large vessel arterial stenosis or occulsion, negative for intracranial aneurysm. (2) Hyponatremia Code(s): E87.1 - HYPO-OSMOLALITY AND HYPONATREMIA Comment: Resolving Follow up BMP as outpatient (3) HTN (hypertension) Code(s): I10 - ESSENTIAL (PRIMARY) HYPERTENSION Comment: With hypertensive episode last evening, now improved. Continue lisinopril, amlodipine added last evening. Outpatient f/u with PCP today for further monitoring. (4) Hypothyroidism Code(s): E03.9 - HYPOTHYROIDISM, UNSPECIFIED Comment: Continue levothyroxine. (5) DVT prophylaxis Comment: SQ heparin Status and Disposition: OBV admit. Dc to home
[2017-03-11] MEDS: Gabapentin CAP(*) 300 MG PO SCH (09:01)
[2017-03-11] MEDS: Aspirin Low Dose CHEW TAB* 81 MG PO SCH (09:02)
[2017-03-11] MEDS: Lisinopril TAB* 10 MG PO SCH (09:02)
--- NOTE | 2017-03-11 09:22 | EEG ---
ELECTROENCEPHALOGRAPHY: DATE OF STUDY: 03/10/17 - ROOM #435 DATE OF DICTATION: 03/10/17 PATIENT OF: Dr. Caban and Dr. Willis. HISTORY: This 87-year-old woman is being evaluated for confusion and difficulty speaking, to rule out seizures. Of note, the patient has had large cell lymphoma, basilar cell carcinoma, left breast cancer among other medical problems. MEDICATIONS: Include: 1. Aspirin. 2. Neurontin. 3. Prinivil. 4. Heparin. 5. Synthroid. 6. Apresoline. 7. Zofran. INTERPRETATION: With the patient awake, background cerebral activity consists of moderate amplitude posterior dominant 8 Hz rhythm. With the patient drowsy, there is slowing into the theta range. The patient never falls fully asleep. No epileptiform potentials, focal abnormalities, or major asymmetries of background are noted. IMPRESSION: This awake and drowsy EEG is within normal limits. [id number]/[facility] #: [id number] MTDD
--- NOTE | 2017-03-11 11:09 | PN ---
NEUROLOGICAL FOLLOWUP: DATE OF VISIT/DICTATION: 03/10/17 PATIENT OF: Loren Vang NP. HISTORY: This is a neurological followup on Gertrude, who is an 87-year-old right handed woman, who had an episode of difficulty speaking and word finding difficulties lasting about 2 hours, who is in an overall sense of weakness but no other focal neurological deficits and she had a significantly high blood pressure of 218/102 initially in the ER. Her symptoms have now gone back to normal and she has had no problems with her speech, word finding and no problems walking or any other issues. CURRENT MEDICATIONS: Include her home medications and she is also on aspirin 81 mg daily, Lipitor 10 mg daily, and she is on her blood pressure medications as per chart. She has had no other complaints. PHYSICAL EXAMINATION: Today, temperature 97.8, pulse 69, respiratory rate is 18 , blood pressure is 136/66. She is alert and oriented with normal speech and comprehension. Cranial nerves II through XII are intact. Motor exam revealed normal tone and strength. Reflexes were 1 and equal. Toes were downgoing. Chest: Clear. Cardiovascular: Regular rate and rhythm. Abdomen: Soft, positive bowel sounds. DIAGNOSTIC STUDIES/LABORATORY DATA: Her lab studies were reviewed. Her MRI scan showed some small vessel ischemic disease but no acute stroke. Her CTA showed no significant carotid or intracranial stenosis. Of note, there was a left subclavian stenosis of approximately 60%. Her transthoracic echo showed no source of clot and no PFO. CBC showed normal white count, hematocrit, and platelet count. She had a normal EEG as well. Gertrude had what sounds like a TIA and is on aspirin and statin now. I do not have any further recommendations. 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 I was not able to get a history of any neurological symptoms associated with that. Thank you for sharing her case. ADDENDUM: It is possible that instead of the TIA, her speech problems could have been secondary to hypertensive encephalopathy. [id number]/[facility] #: [id number] TJ
--- NOTE | 2017-03-12 05:14 | DS ---
CC: Mamie Caban MD * MEDICINE DISCHARGE SUMMARY: DATE OF ADMISSION: 03/09/17 DATE OF DISCHARGE: 03/11/17. PRIMARY CARE PHYSICIAN: Mamie Caban MD PROVIDER Esvin Price NP. ATTENDING PHYSICIAN: Dr. Rekha Spencer* (as dictated by Esvin Price NP). CONSULTING PHYSICIAN: Darling Willis MD, Neurology. PRIMARY DISCHARGE DIAGNOSES: 1. Transient ischemic attack versus hypertensive encephalopathy. 2. Hyponatremia. SECONDARY DISCHARGE DIAGNOSES: 1. Hypertension. 2. Hypothyroidism. 3. History of breast cancer. 4. History of lymphoma. MEDICATIONS AT DISCHARGE: 1. Gabapentin 300 mg q.a.m. and 600 mg q.p.m. 2. Levothyroxine 50 mcg daily. 3. Hydrochlorothiazide 12.5 mg every other day. 4. Oxycodone 5 mg b.i.d. p.r.n. 5. Lisinopril 30 mg daily. 6. Amlodipine 5 mg daily. 7. Atorvastatin 10 mg daily. This is a new medication. 8. Aspirin 81 mg daily. This is a new medication. Note: The patient was recently started on amlodipine at 5 mg due to hypertensive urgency here in the hospital, but may benefit from a lower dose once out of the hospital. DIAGNOSTIC TESTING DURING THIS ADMISSION: 1. CT of the brain. Impression: a. Negative for intracranial hemorrhage or compelling CT stigmata of acute ischemic stroke. b. Mild to moderate involutional change and stigmata of chronic small vessel ischemic disease. c. No acute intracranial process evident. 2. MRI of the brain with and without contrast. Impression: a. No evidence for acute or subacute ischemia. No evidence for intra or extraaxial metastatic lesions. b. Involutional change and periventricular and subcortical white matter signal abnormalities without enhancement or mass effect, were nonspecific, most likely reflecting chronic small vessel ischemic disease. 3. CTA of the head and neck. Neck angiogram. Impression: Negative for hemodynamic significant carotid stenosis. Patent vertebral arteries with limited assessment of the proximal segment of the right vertebral artery due to artifact as noted. 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 4. Head angiogram. Impression: Normal variation without pathologic finding of the dominant central intracranial arterial vasculature. Negative for central large vessel arterial stenosis or occlusion. Negative for intracranial aneurysm. 5. Transthoracic echocardiogram. Conclusion: Mild concentric left ventricular hypertrophy is observed. Global left ventricular wall motion and contractility are within normal limits. The estimated ejection fraction was 55 % to 60%. Abnormal left ventricular diastolic function is observed, consistent with impaired relaxation. The right ventricular global systolic function is normal. There is mild aortic regurgitation, 2 small jets. There is mild to moderate mitral regurgitation, closer to mild, multiple small jets. There is mild tricuspid regurgitation. No patent foramen ovale demonstrated with color Doppler and associated contrast. Compared with the prior study of 10/08/11, ventricular function is stable, mitral insufficiency has increased from trace, AI is newly noted. HOSPITAL COURSE OF STAY: For full details, please refer to the H and P provided by nurse practitioner Wes Rodriguez on 03/09/17. In summary, Ms. Ravi presented to the ER with difficulty getting her words out. She reported that her speech was slower than baseline and she has some associated left arm numbness. Her daughter noted that she appeared to be confused. Her primary was called and they referred her to the ER. When she was here in the ER, it was noted that her blood pressure was initially 219/95. Dr. Willis of Neurology saw the patient in consultation. Most probably this could represent perhaps a TIA versus a hypertensive encephalopathy. The patient also showed some mild hyponatremia, which was thought to secondary to her hydrochlorothiazide usage. The patient's lipid profile was also checked while here and her cholesterol was noted to be 199, LDL 128. Given that the patient has concerns for a TIA, it was recommended that she start a statin which we did start her on low dose atorvastatin. Additionally, she was also recommended to start on baby aspirin, which was also initiated here in the hospital. Just prior to discharge, the patient had sudden spike in blood pressure again to 192/90 with associated headache. The patient was started on amlodipine and was given p.r.n. hydralazine in order to help lower her blood pressure. Her blood pressure did normalize out and she has remained asymptomatic over the rest of the evening and this morning. The patient's blood pressure at discharge is 118/51, which may be on the lower side for someone in her age category. I did discuss with the patient and stated that she should have a followup appointment with Dr. Caban and discuss perhaps the necessity to continue the amlodipine as this may be falsely elevated here secondary to anxiety, also secondary to recent neurological event. She is very anxious here, I do not want her to be too low, also she has not been on hydrochlorothiazide here and it may be that with the addition of this medication or an increase in lisinopril that the amlodipine will not needed. The patient was advised of this and verbalized understanding. She would like to discuss with Dr. Caban who she will see this afternoon at 2 o'clock. CONCERNS AT DISCHARGE: Ms. Ravi is discharged to home on 03/11/17 with the plan to follow up with her PCP this afternoon. OUTPATIENT FOLLOWUP NEEDS: The patient is to have a followup BMP for her sodium level, which has been improving after receiving hydration here. She is to further discuss her blood pressure and continue blood pressure monitoring at home to dbetter determine her home medications need for blood pressure control. DIET: Heart healthy diet. ACTIVITY: As tolerated. The patient has been referred to outpatient physical therapy as needed. CONDITION: Improved, stable. DISPOSITION: To home with daughter, who will be staying with the patient for the next few days. TIME SPENT: Time spent on this discharge was approximately 45 minutes. Again, this is only a brief summary of the patient's hospital course of stay. For full details, please refer to the full medical record. If you have any further questions or need further assistance, please feel free to contact me at [phone] ESVIN PRICE NP [id number]/[facility] #: [id number] TJ
== END 2017-03-11 09:30 | disposition home or self-care (01) ==
LOC: ED 16:31 → MEDTELE 18:35
PROVIDERS: ADMIT Internal Medicine; ATTEND Internal Medicine
DX: E87.1 Hypo-osmolality and hyponatremia (principal); I10 Essential (primary) hypertension; E03.9 Hypothyroidism, unspecified; Z85.3 Personal history of malignant neoplasm of breast; Z79.4 Long term (current) use of insulin; Z79.899 Other long term (current) drug therapy; Z88.0 Allergy status to penicillin
CPT/HCPCS: 36415; 70450; 70496; 70498; 70553; 71010; 80048; 80053; 80061; 81003; 82533; 83036; 83605; 83930; 83935; 84300; 84443; 84484; 85025; 85610; 85730; 86850; 86900; 86901; 93005; 93306; 94760; 95816; 96374; A9270-GY; A9579; G0378; G8978-GP-CI; G8979-GP-CI; G8980-GP-CI; J0360; J1644; Q9967

== ENCOUNTER 2017-03-15 22:23 | Emergency (ER) | payer MEDICARE ==
[2017-03-15 23:06] LABS: Hematocrit 38 % (35-47); Hemoglobin 12.9 g/dl (12.0-16.0); Mean Corpuscular HGB Conc 34 g/dl (31-36); Mean Corpuscular Hemoglobin 31 pg (27-31); Mean Corpuscular Volume 92 fL (80-97); Mean Platelet Volume 8 um3 (7.4-10.4); Red Blood Count 4.15 10^6/ul (4.0-5.4); Red Cell Distribution Width 13 % (10.5-15); White Blood Count 5.1 10^3/ul (3.5-10.8)
[2017-03-15 23:21] LABS: Albumin 4.1 g/dL (3.2-5.2); BUN/Creatinine Ratio 25.4 (8-20); Calcium 9.2 mg/dL (8.6-10.3); EGFR African American 99.9 (>60); EGFR Non-African American 77.7 (>60); Globulin 2.2 g/dL (2-4); Magnesium 1.9 mg/dL (1.9-2.7); Total Bilirubin 0.3 mg/dL (0.2-1.0); Total Protein 6.3 g/dL (6.4-8.9)
--- NOTE | 2017-03-15 23:28 | ED ---
I, Oh,Key, scribed for Kane Dumont MD on 03/15/17 at 2248 . Neurological HPI - HPI Summary HPI Summary: This 87 y/o female presents to ED numbness/tingling left shoulder down hand since this evening. Negative slurred speech. PMHx includes recent TIA last week , which manifests with visual disturbance. Pt states numbness/tingling she feels tonight is different from her symptoms last week. Other PMHx includes remote breast CA s/p lumpectomy, lymphoma, HTN, and partial thyroidectomy. Pt lives at home alone. - History of Current Complaint Chief Complaint: EDWeakness Stated Complaint: NUMBNESS LT SIDE Time Seen by Provider: 03/15/17 22:24 Hx Obtained From: Patient, Medical Records Onset/Duration: Sudden Onset Timing: Constant Onset Severity: Mild Current Severity: Mild Pain Intensity: 0 Pain Scale Used: 0-10 Numeric Character: Numbness/Tingling - Allergy/Home Medications Allergies/Adverse Reactions: Allergies Allergy/AdvReac Type Severity Reaction Status Date / Time Penicillins Allergy Intermediate Hives Verified 12/03/15 11:05 PMH/Surg Hx/FS Hx/Imm Hx Endocrine/Hematology History: Denies: Hx Diabetes, Hx Systemic Lupus Erythematosus Cardiovascular History: Reports: Hx Hypertension - ON DAILY MEDS Denies: Hx Congestive Heart Failure, Hx Pacemaker/ICD Respiratory History: Reports: Other Respiratory Problems/Disorders - radiation left side neck 2011 History: Denies: Hx Dialysis, Hx Renal Disease Musculoskeletal History: Reports: Hx Arthritis - HANDS, Other Musculoskeletal History - back pain and surgery, hx bilat wrist fx Denies: Hx Rheumatoid Arthritis, Hx Scoliosis Sensory History: Reports: Hx Cataracts - BILATERAL, Hx Contacts or Glasses Denies: Hx Hearing Aid Opthamlomology History: Reports: Hx Cataracts - BILATERAL, Hx Contacts or Glasses Neurological History: Reports: Other Neuro Impairments/Disorders - RADIATION AND CHEMO 2012 FOR LYMPHOMA Denies: Hx Headaches Psychiatric History: Denies: Hx Panic Disorder - Cancer History Cancer Type, Location and Year: breast ca left, basal cell, lymphoma Hx Chemotherapy: Yes - LYMPHOMA 2011 Hx Radiation Therapy: Yes - BREAST 1986,LYMPHOMA 2011 - Surgical History Surgery Procedure, Year, and Place: hysterectomy 1978 [facility]; lumpectomy left BREAST ca 1986 [facility]; partial thyroidectomy 1996 [facility]; 2010 [facility]; 1998 [facility]NIATED LUMBAR DISC [facility]. [facility]; BREAST SURGERY X 4 Hx Anesthesia Reactions: No Infectious Disease History: No Infectious Disease History: Denies: Traveled Outside the [place] in Last 30 Days - Family History Known Family History: Negative: Other - breast CA - Social History Alcohol Use: None Alcohol Amount: FEW DRINKS A YEAR, SPECIAL OCCASSIONS Substance Use Type: Reports: None Smoking Status (MU): Never Smoked Tobacco Have You Smoked in the Last Year: No Review of Systems Negative: Fever Positive: Numbness - left shoulder radiating down LUE arm All Other Systems Reviewed And Are Negative: Yes Physical Exam Triage Information Reviewed: Yes Vital Signs On Initial Exam: Initial Vitals Temp Pulse Resp BP Pulse Ox 99.2 F 83 18 171/78 98 03/15/17 22:30 03/15/17 22:30 03/15/17 22:30 03/15/17 22:30 03/15/17 22:30 Vital Signs Reviewed: Yes Appearance: Positive: Well-Appearing, No Pain Distress Skin: Positive: Warm Head/Face: Positive: Normal Head/Face Inspection Eyes: Positive: SONAM ENT: Positive: Hearing grossly normal Neck: Positive: Supple, Nontender Respiratory/Lung Sounds: Positive: Clear to Auscultation, Breath Sounds Present Cardiovascular: Positive: RRR Abdomen Description: Positive: Nontender, Soft Bowel Sounds: Positive: Present Musculoskeletal: Positive: Strength/ROM Intact Neurological: Positive: Sensory/Motor Intact, Alert, Oriented to Person Place, Time, Normal Gait - [place] Coma Scale Coma Scale Total: 15 Diagnostics - Vital Signs Vital Signs Temp Pulse Resp BP Pulse Ox 03/15/17 22:30 99.2 F 83 18 171/78 98 - Laboratory Lab Results: Lab Results 03/15/17 03/15/17 Range/Units 22:50 22:50 WBC 5.1 (3.5-10.8) 10^3/ul RBC 4.15 (4.0-5.4) 10^6/ul Hgb 12.9 (12.0-16.0) g/dl Hct 38 (35-47) % MCV 92 (80-97) fL MCH 31 (27-31) pg MCHC 34 (31-36) g/dl RDW 13 (10.5-15) % Plt Count 192 (150-450) 10^3/ul MPV 8 (7.4-10.4) um3 Neut % (Auto) 73.5 (38-83) % Lymph % (Auto) 13.0 L (25-47) % Vil[place] % (Auto) 8.5 (1-9) % Eos % (Auto) 4.3 (0-6) % Baso % (Auto) 0.7 (0-2) % Absolute Neuts (auto) 3.8 (1.5-7.7) 10^3/ul Absolute Lymphs (auto) 0.7 L (1.0-4.8) 10^3/ul Absolute Monos (auto) 0.4 (0-0.8) 10^3/ul Absolute Eos (auto) 0.2 (0-0.6) 10^3/ul Absolute Basos (auto) 0 (0-0.2) 10^3/ul Absolute Nucleated RBC 0 10^3/ul Nucleated RBC % 0 Sodium 132 L (133-145) mmol/L Potassium 4.0 (3.5-5.0) mmol/L Chloride 99 L (101-111) mmol/L Carbon Dioxide 26 (22-32) mmol/L Anion Gap 7 (2-11) mmol/L BUN 18 (6-24) mg/dL Creatinine 0.71 (0.51-0.95) mg/dL Est GFR ( Amer) 99.9 (>60) Est GFR (Non-Af Amer) 77.7 (>60) BUN/Creatinine Ratio 25.4 H (8-20) Glucose 119 H (70-100) mg/dL Calcium 9.2 (8.6-10.3) mg/dL Magnesium 1.9 (1.9-2.7) mg/dL Total Bilirubin 0.30 (0.2-1.0) mg/dL AST 32 (13-39) U/L ALT 37 (7-52) U/L Alkaline Phosphatase 73 (34-104) U/L Total Protein 6.3 L (6.4-8.9) g/dL Albumin 4.1 (3.2-5.2) g/dL Globulin 2.2 (2-4) g/dL Albumin/Globulin Ratio 1.9 (1-3) Result Diagrams: 03/15/17 22:50 03/15/17 22:50 Lab Statement: Any lab studies that have been ordered have been reviewed, and results considered in the medical decision making process. - CT Brain CT Interpretation: No Acute Changes CT Interpretation Completed By: Radiologist - EKG 2318 Cardiac Rate: NL - 79 bpm EKG Rhythm: Sinus Rhythm NIH Scale - NIH Scale Level of Consciousness: Alert/Keenly Responsive Ask Patient the Month and His/Her Age: Both Correct Ask Pt to Open/Close Eyes and Scalper Operator/Release Non-Paretic Hand: Both Correctly Best Gaze (Only Horizontal Eye Movement): Normal Visual Field Testing: No Visual Loss Facial Paresis-Pt to Smile & Close Eyes or Grimace Symmetry: Normal/Symmetrical Motor Function - Right Arm: No Drift-Holds 10 Seconds Motor Function - Left Arm: No Drift-Holds 10 Seconds Motor Function - Right Leg: No Drift-Holds 10 Seconds Motor Function - Left Leg: No Drift-Holds 10 Seconds Limb Ataxia-Must be out of Proportion to Weakness Present: Absent Sensory (Use Pinprick to Test Arms/Legs/Trunk/Face): Normal Best Language (Describe Picture, Name Items): No Aphasia Dysarthria (Read Several Words): Normal Extinction and Inattention: No Abnormality Total Score: 0 Re-Evaluation - Re-Evaluation First Eval Change: Improved - results d/w pt, no objective findings, will d/c to f/u pcp/ .neuro, return for recurrences Course/Dx - Diagnoses Provider Diagnoses: Paresthesia Discharge - Discharge Plan Condition: Stable Disposition: HOME Patient Education Materials: Paresthesia (ED) Referrals: Mamie Caban MD [Primary Care Provider] - 2 Days The documentation as recorded by the Marty ayala Soohyun accurately reflects the service I personally performed and the decisions made by , Kane Dumont MD.
[2017-03-15 23:43] LABS: Urine Bilirubin Negative (Negative); Urine Glucose Negative (Negative); Urine Nitrite Negative (Negative)
[2017-03-16 00:13] VITALS: BP 143/74
--- NOTE | 2017-03-16 08:50 | RAD ---
Indication: Left-sided numbness. CT of the brain was performed without IV contrast. Ventricular structures are midline. No midline shift is noted. The extra-axial spaces are unremarkable. There is no evidence of intracranial mass or hemorrhage. No other high or low density lesions are identified. Mastoid air cells and paranasal sinuses are unremarkable. IMPRESSION: No intracranial mass or hemorrhage is noted.
== END 2017-03-16 00:20 | disposition home or self-care (01) ==
LOC: ED 22:23
DX: R20.2 Paresthesia of skin (principal); H53.9 Unspecified visual disturbance; I10 Essential (primary) hypertension; Z85.3 Personal history of malignant neoplasm of breast; E89.0 Postprocedural hypothyroidism; Z90.710 Acquired absence of both cervix and uterus; Z98.42 Cataract extraction status, left eye; Z98.41 Cataract extraction status, right eye; Z88.0 Allergy status to penicillin
CPT/HCPCS: 36415; 70450; 80053; 81003; 83735; 84484; 85025; 93005; 99282

== ENCOUNTER 2017-05-10 12:16 | Emergency (ER) | payer MEDICARE ==
[2017-05-10 14:13] LABS: Hematocrit 38 % (35-47); Hemoglobin 12.6 g/dl (12.0-16.0); Mean Corpuscular HGB Conc 33 g/dl (31-36); Mean Corpuscular Hemoglobin 30 pg (27-31); Mean Corpuscular Volume 91 fL (80-97); Mean Platelet Volume 8 um3 (7.4-10.4); Red Blood Count 4.15 10^6/ul (4.0-5.4); Red Cell Distribution Width 14 % (10.5-15); White Blood Count 4.3 10^3/ul (3.5-10.8)
[2017-05-10] MEDS ORDERED: LORazepam INJ* 2 MG/ML 1 ML VIAL IV ONE (14:23)
[2017-05-10] MEDS ORDERED: LORazepam TAB(*) 1 MG PO ONE (14:26)
[2017-05-10 14:28] LABS: Urine Bilirubin Negative (Negative); Urine Glucose Negative (Negative); Urine Nitrite Negative (Negative)
[2017-05-10 14:37] LABS: ALT 18 U/L (7-52); AST 24 U/L (13-39); Alkaline Phosphatase 79 U/L (34-104); Anion Gap 3 mmol/L (2-11); BUN/Creatinine Ratio 17.9 (8-20); Blood Urea Nitrogen 12 mg/dL (6-24); C Reactive Protein < 1.00 mg/L (< 5.00); CO2 Carbon Dioxide 28 mmol/L (22-32); Calcium 9.3 mg/dL (8.6-10.3); Chloride 99 mmol/L (101-111); EGFR African American 106.8 (>60); EGFR Non-African American 83.1 (>60); Globulin 2.2 g/dL (2-4); Glucose 101 mg/dL (70-100); Magnesium 1.9 mg/dL (1.9-2.7); Potassium 3.9 mmol/L (3.5-5.0); Sodium 130 mmol/L (133-145); Total Protein 6.2 g/dL (6.4-8.9)
[2017-05-10 14:39] LABS: Troponin I 0.01 ng/mL (<0.04)
[2017-05-10 14:51] LABS: TSH (Thyroid Stimulating Horm) 1.11 mcIU/mL (0.34-5.60)
[2017-05-10 16:57] VITALS: BP 154/72
--- NOTE | 2017-05-11 10:58 | ED ---
Rob Adams Benjamin, scribed for Doyle Pierre MD on 05/10/17 at 1246 . Back Pain - HPI Summary HPI Summary: 87yo female c/o chronic middle back pain that has gotten worse in the past few days. Pt had multiple imaging done in her back but no clear dx yet. Pt is still working on an dx with her PCP. Pt also reports feeling lightheaded. Denies any abdominal or chest pain, and pt has been taking oxycodone and gabapentin for pain but pain meds are not helping now. - History of Current Complaint Chief Complaint: EDBackInjuryPain Stated Complaint: LIGHT HEADED/HIGH BP Time Seen by Provider: 05/10/17 12:23 Hx Obtained From: Patient, Family/Thread Singer - daughter Onset/Duration: Lasting Weeks, Still Present, Worse Since - few days ago Timing: Constant Back Pain Location: Is Discrete @ - middle back Severity Initially: Moderate Severity Currently: Moderate Pain Intensity: 7 Pain Scale Used: 0-10 Numeric Aggravating Symptom(s): Nothing Alleviating Symptom(s): Nothing Associated Signs And Symptoms: Positive: Negative - Allergies/Home Medications Allergies/Adverse Reactions: Allergies Allergy/AdvReac Type Severity Reaction Status Date / Time Penicillins Allergy Intermediate Hives Verified 12/03/15 11:05 PMH/Surg Hx/FS Hx/Imm Hx Endocrine/Hematology History: Denies: Hx Diabetes, Hx Systemic Lupus Erythematosus Cardiovascular History: Reports: Hx Hypertension - ON DAILY MEDS Denies: Hx Congestive Heart Failure, Hx Pacemaker/ICD Respiratory History: Reports: Other Respiratory Problems/Disorders - radiation left side neck 2011 History: Denies: Hx Dialysis, Hx Renal Disease Musculoskeletal History: Reports: Hx Arthritis - HANDS, Other Musculoskeletal History - back pain and surgery, hx bilat wrist fx Denies: Hx Rheumatoid Arthritis, Hx Scoliosis Sensory History: Reports: Hx Cataracts - BILATERAL, Hx Contacts or Glasses Denies: Hx Hearing Aid Opthamlomology History: Reports: Hx Cataracts - BILATERAL, Hx Contacts or Glasses Neurological History: Reports: Other Neuro Impairments/Disorders - RADIATION AND CHEMO 2012 FOR LYMPHOMA Denies: Hx Headaches Psychiatric History: Denies: Hx Panic Disorder - Cancer History Cancer Type, Location and Year: breast ca left, basal cell, lymphoma Hx Chemotherapy: Yes - LYMPHOMA 2011 Hx Radiation Therapy: Yes - BREAST 1986,LYMPHOMA 2011 - Surgical History Surgery Procedure, Year, and Place: hysterectomy 1979 [facility]; lumpectomy left BREAST ca 1986 [facility]; partial thyroidectomy 1996 [facility]; 2010 BILATERAL CATARACTS [facility]; 1998 HERNIATED LUMBAR DISC [facility]. [facility] REPA[facility]; BREAST SURGERY X 4 Hx Anesthesia Reactions: No Infectious Disease History: Denies: Traveled Outside the [place] in Last 30 Days - Family History Known Family History: Negative: Other - breast CA - Social History Occupation: Retired Lives: Alone Alcohol Use: None Alcohol Amount: FEW DRINKS A YEAR, SPECIAL OCCASSIONS Substance Use Type: Reports: None Smoking Status (MU): Never Smoked Tobacco Have You Smoked in the Last Year: No Review of Systems Constitutional: Negative Eyes: Negative Positive: Epistaxis Cardiovascular: Negative Negative: Chest Pain Respiratory: Negative Gastrointestinal: Negative Negative: Abdominal Pain Genitourinary: Negative Positive: Myalgia - middle back pain Skin: Negative Neurological: Other - lightheadedness Psychological: Normal All Other Systems Reviewed And Are Negative: Yes Physical Exam Triage Information Reviewed: Yes Vital Signs On Initial Exam: Initial Vitals Temp Pulse Resp BP Pulse Ox 98.3 F 73 18 185/77 97 05/10/17 12:18 05/10/17 12:18 05/10/17 12:18 05/10/17 12:18 05/10/17 12:18 Vital Signs Reviewed: Yes Appearance: Positive: Well-Appearing, No Pain Distress, Well-Nourished Skin: Positive: Warm, Skin Color Reflects Adequate Perfusion, Dry Head/Face: Positive: Normal Head/Face Inspection Eyes: Positive: EOMI, SONAM ENT: Positive: Normal ENT inspection, Hearing grossly normal Neck: Positive: Supple, Nontender Respiratory/Lung Sounds: Positive: Clear to Auscultation, Breath Sounds Present Cardiovascular: Positive: RRR, Pulses are Symmetrical in both Upper and Lower Extremities Abdomen Description: Positive: Nontender, Soft Bowel Sounds: Positive: Present Musculoskeletal: Positive: Normal, Strength/ROM Intact Neurological: Positive: Sensory/Motor Intact, Alert, Oriented to Person Place, Time Psychiatric: Positive: Affect/Mood Appropriate Diagnostics - Vital Signs Vital Signs Temp Pulse Resp BP Pulse Ox 05/10/17 12:34 97.7 F 68 13 186/88 98 05/10/17 12:18 98.3 F 73 18 185/77 97 - Laboratory Lab Results: Lab Results 05/10/17 05/10/17 05/10/17 Range/Units 13:50 13:50 13:50 WBC 4.3 (3.5-10.8) 10^3/ul RBC 4.15 (4.0-5.4) 10^6/ul Hgb 12.6 (12.0-16.0) g/dl Hct 38 (35-47) % MCV 91 (80-97) fL MCH 30 (27-31) pg MCHC 33 (31-36) g/dl RDW 14 (10.5-15) % Plt Count 197 (150-450) 10^3/ul MPV 8 (7.4-10.4) um3 Neut % (Auto) 68.4 (38-83) % Lymph % (Auto) 18.3 L (25-47) % [place] % (Auto) 8.2 (1-9) % Eos % (Auto) 3.9 (0-6) % Baso % (Auto) 1.2 (0-2) % Absolute Neuts (auto) 3.0 (1.5-7.7) 10^3/ul Absolute Lymphs (auto) 0.8 L (1.0-4.8) 10^3/ul Absolute Monos (auto) 0.4 (0-0.8) 10^3/ul Absolute Eos (auto) 0.2 (0-0.6) 10^3/ul Absolute Basos (auto) 0.1 (0-0.2) 10^3/ul Absolute Nucleated RBC 0 10^3/ul Nucleated RBC % 0.1 INR (Anticoag Therapy) 0.94 (0.89-1.11) Sodium 130 L (133-145) mmol/L Potassium 3.9 (3.5-5.0) mmol/L Chloride 99 L (101-111) mmol/L Carbon Dioxide 28 (22-32) mmol/L Anion Gap 3 (2-11) mmol/L BUN 12 (6-24) mg/dL Creatinine 0.67 (0.51-0.95) mg/dL Est GFR ( Amer) 106.8 (>60) Est GFR (Non-Af Amer) 83.1 (>60) BUN/Creatinine Ratio 17.9 (8-20) Glucose 101 H (70-100) mg/dL Lactic Acid (0.5-2.0) mmol/L Calcium 9.3 (8.6-10.3) mg/dL Magnesium 1.9 (1.9-2.7) mg/dL Total Bilirubin 0.50 (0.2-1.0) mg/dL AST 24 (13-39) U/L ALT 18 (7-52) U/L Alkaline Phosphatase 79 (34-104) U/L Troponin I 0.01 (<0.04) ng/mL C-Reactive Protein < 1.00 (< 5.00) mg/L Total Protein 6.2 L (6.4-8.9) g/dL Albumin 4.0 (3.2-5.2) g/dL Globulin 2.2 (2-4) g/dL Albumin/Globulin Ratio 1.8 (1-3) TSH 1.11 (0.34-5.60) mcIU/mL Urine Color Urine Appearance Urine pH (5-9) Ur Specific [place] (1.010-1.030) Urine Protein (Negative) Urine Ketones (Negative) Urine Blood (Negative) Urine Nitrate (Negative) Urine Bilirubin (Negative) Urine Urobilinogen (Negative) Ur Leukocyte Esterase (Negative) Urine Glucose (Negative) 05/10/17 05/10/17 Range/Units 13:50 14:10 WBC (3.5-10.8) 10^3/ul RBC (4.0-5.4) 10^6/ul Hgb (12.0-16.0) g/dl Hct (35-47) % MCV (80-97) fL MCH (27-31) pg MCHC (31-36) g/dl RDW (10.5-15) % Plt Count (150-450) 10^3/ul MPV (7.4-10.4) um3 Neut % (Auto) (38-83) % Lymph % (Auto) (25-47) % [place] % (Auto) (1-9) % Eos % (Auto) (0-6) % Baso % (Auto) (0-2) % Absolute Neuts (auto) (1.5-7.7) 10^3/ul Absolute Lymphs (auto) (1.0-4.8) 10^3/ul Absolute Monos (auto) (0-0.8) 10^3/ul Absolute Eos (auto) (0-0.6) 10^3/ul Absolute Basos (auto) (0-0.2) 10^3/ul Absolute Nucleated RBC 10^3/ul Nucleated RBC % INR (Anticoag Therapy) (0.89-1.11) Sodium (133-145) mmol/L Potassium (3.5-5.0) mmol/L Chloride (101-111) mmol/L Carbon Dioxide (22-32) mmol/L Anion Gap (2-11) mmol/L BUN (6-24) mg/dL Creatinine (0.51-0.95) mg/dL Est GFR ( Amer) (>60) Est GFR (Non-Af Amer) (>60) BUN/Creatinine Ratio (8-20) Glucose (70-100) mg/dL Lactic Acid 0.9 (0.5-2.0) mmol/L Calcium (8.6-10.3) mg/dL Magnesium (1.9-2.7) mg/dL Total Bilirubin (0.2-1.0) mg/dL AST (13-39) U/L ALT (7-52) U/L Alkaline Phosphatase (34-104) U/L Troponin I (<0.04) ng/mL C-Reactive Protein (< 5.00) mg/L Total Protein (6.4-8.9) g/dL Albumin (3.2-5.2) g/dL Globulin (2-4) g/dL Albumin/Globulin Ratio (1-3) TSH (0.34-5.60) mcIU/mL Urine Color Colorless Urine Appearance Clear Urine pH 7.0 (5-9) Ur Specific [place] 1.003 L (1.010-1.030) Urine Protein Negative (Negative) Urine Ketones Negative (Negative) Urine Blood Negative (Negative) Urine Nitrate Negative (Negative) Urine Bilirubin Negative (Negative) Urine Urobilinogen Negative (Negative) Ur Leukocyte Esterase Negative (Negative) Urine Glucose Negative (Negative) Result Diagrams: 05/10/17 13:50 05/10/17 13:50 Lab Statement: Any lab studies that have been ordered have been reviewed, and results considered in the medical decision making process. - EKG 1 EKG Interpretation: 14:34 - SR @ 59 BPM. EKG Comparison: No Significant Change - 03/15/17 Back Pain Course/Dx - Course Course Of Treatment: Reviewed pts medication and allergy lists. Ms. Ravi came in with an acute flair up of her chronic low back pain. She wanted to try a muscle relaxer rather than oxycodone which she currently takes. She intitally C/O dizziness but she soon minimized that. Labs were normal. - Diagnoses Provider Diagnoses: Acute on chronic back pain Discharge - Discharge Plan Condition: Stable Disposition: HOME Prescriptions: LORazepam TAB(*) [Ativan TAB(*)] 1 mg PO Q6H PRN #20 tab MDD 4 PRN Reason: Pain Patient Education Materials: Chronic Back Pain (ED), Back Pain (ED) Referrals: Mamie Caban MD [Primary Care Provider] - 3 Days (PLEASE f/u in 2-3 days) The documentation as recorded by the Rob ayala Benjamin accurately reflects the service I personally performed and the decisions made by me, Doyle Pierre MD.
== END 2017-05-10 15:40 | disposition home or self-care (01) ==
LOC: ED 12:16
DX: M54.9 Dorsalgia, unspecified (principal); R04.0 Epistaxis; R42 Dizziness and giddiness
CPT/HCPCS: 36415; 80053; 81003; 83605; 83735; 84443; 84484; 85025; 85610; 86140; 93005; 96374; 99283; A9270-GY

== ENCOUNTER 2017-05-20 08:38 | Inpatient (IN) | payer MEDICARE ==
[2017-05-20] MEDS ORDERED: NS 0.9% 1000 ML* 1,000 ML IV SCH (10:30)
[2017-05-20] MEDS ORDERED: Ondansetron INJ* 2 MG/ML VIAL IV ONE ×2 (11:02→14:43)
[2017-05-20] MEDS ORDERED: Morphine INJ* 4 MG/ML 1 ML CARPUJECT IV ONE ×2 (11:02→14:43)
[2017-05-20 11:11] LABS: Hematocrit 40 % (35-47); Hemoglobin 13.3 g/dl (12.0-16.0); Mean Corpuscular HGB Conc 34 g/dl (31-36); Mean Corpuscular Hemoglobin 30 pg (27-31); Mean Corpuscular Volume 91 fL (80-97); Mean Platelet Volume 8 um3 (7.4-10.4); Red Blood Count 4.38 10^6/ul (4.0-5.4); Red Cell Distribution Width 14 % (10.5-15); White Blood Count 8.7 10^3/ul (3.5-10.8)
[2017-05-20 11:23] LABS: Albumin 4.4 g/dL (3.2-5.2); BUN/Creatinine Ratio 17.6 (8-20); C Reactive Protein 1.32 mg/L (< 5.00); Calcium 9.8 mg/dL (8.6-10.3); EGFR African American 95.3 (>60); EGFR Non-African American 74.1 (>60); Globulin 2.5 g/dL (2-4); Potassium 4.3 mmol/L (3.5-5.0); Total Bilirubin 0.5 mg/dL (0.2-1.0); Total Protein 6.9 g/dL (6.4-8.9)
[2017-05-20] MEDS ORDERED: Iohexol 300* (CONTRAST) 10 ML SDV IV ONE (11:26)
[2017-05-20 12:48] LABS: Urine Bacteria Absent (Absent); Urine Bilirubin Negative (Negative); Urine Glucose Negative (Negative); Urine Nitrite Negative (Negative)
--- NOTE | 2017-05-20 14:00 | RAD ---
INDICATION: Abdominal pain. Bloating. History of lymphoma. COMPARISON: CT April 16, 2015 TECHNIQUE: Axial source images were obtained from the hemidiaphragms to the symphysis pubis following administration of oral and intravenous contrast. 72 mL Omnipaque 300 was utilized. Coronal and sagittal reconstructed images were acquired. Lung bases: The lung bases are clear. Liver: The liver is normal in size. There are no new masses. Multiple low-density hepatic lesions are stable and may represent cysts There is no ductal dilatation. Gallbladder: Cholelithiasis, unchanged. Spleen: The spleen is normal in size. There are no masses. Pancreas: There is no focal pancreatic mass or ductal dilatation. Adrenal glands: There is no evidence of adrenal mass. Kidneys: The kidneys are normal in size and position. There are prompt nephrograms and there is prompt excretion bilaterally. There are no renal parenchymal masses. There is no evidence of nephrolithiasis. Adenopathy: There is no evidence of adenopathy by size criteria. Fluid collections: There is a small (transverse measurements 5.0 x 1.7 cm), elliptical, right-sided, subdiaphragmatic fluid collection which appears new. Vessels:There are no significant atherosclerotic changes involving the aorta. There is no focal aneurysm. The iliac vessels are normal in caliber. The IVC appears normal. GI tract: Evaluation of bowel is limited as almost all of the contrast is within the moderately distended stomach. There are multiple fluid-filled loops of small bowel several which are mildly dilated. There is a large amount stool throughout the colon with scattered diverticula. Pelvic organs: Hysterectomy. No adnexal mass Bladder: There are no bladder masses. Abdominal and pelvic soft tissues: The extraperitoneal abdominal and pelvic soft tissues appear normal.. Osseous structures: There are no acute osseous findings. There is multilevel degenerative change with a grade 1 anterolisthesis of L4 on L5. There are postsurgical changes. Other: None IMPRESSION: 1. Small right subdiaphragmatic fluid collection. 2. Stable hypodense liver lesions, likely cysts. 3. Cholelithiasis 4. Distended stomach. Multiple fluid-filled loops of mildly dilated small bowel. Large amount retained stool throughout the colon with scattered diverticula. Suggest a follow-up abdominal series.
[2017-05-20] MEDS: NS 0.9% 1000 ML* 1,000 ML IV SCH (16:11)
[2017-05-20] MEDS ORDERED: Morphine INJ* 2 MG/ML 1 ML CARPUJECT IV PRN (16:13)
[2017-05-20] MEDS ORDERED: hydrALAZINE IV* 20 MG/ML VIAL IV SLOW PU PRN (16:24)
[2017-05-20] MEDS ORDERED: PROCHLORPERAZINE INJ 5 MG/ML 2 ML VIAL ONE (16:29)
[2017-05-20] MEDS ORDERED: Morphine INJ* 4 MG/ML 1 ML CARPUJECT ONE (16:29)
[2017-05-20] MEDS: PROCHLORPERAZINE INJ 5 MG/ML 2 ML VIAL IV PRN (16:33)
[2017-05-20] MEDS: Morphine INJ* 4 MG/ML 1 ML CARPUJECT IV PRN ×2 (16:34→20:48)
[2017-05-20] MEDS ORDERED: Sodium Phosphate ADULT ENEMA* 118 ml bottle PR ONE (16:38)
[2017-05-20 16:59] LABS: Magnesium 1.9 mg/dL (1.9-2.7)
--- NOTE | 2017-05-20 17:30 | ED ---
Rob Adams Benjamin, scribed for Luis Ward MD on 05/20/17 at 1104 . Abdominal Pain/Female - HPI Summary HPI Summary: 87yo female c/o diffuse low abdominal pain of 8/10 since yesterday. Pt has surgical hx of hysterectomy but no other abdominal surgeries. Pt reports feeling bloated, stating unable to pass gas. Pt is also nauseous, but denies V/D , fever/chills, cough or any urinary symptoms. Pt has been having normal BM. Denies any diarrhea or constipation. Pt has chronic back pain, which pt takes oxycodone for. Pt is on low does ASA. PMHx of GERD, HTN, and HLD. - History of Current Complaint Chief Complaint: EDAbdPain Stated Complaint: ABD PAIN Time Seen by Provider: 05/20/17 10:55 Hx Obtained From: Patient, Family/Ad Trafficker - daughter ?: No Onset/Duration: Gradual Onset, Lasting Days - since yesterday, Still Present Timing: Constant Severity Initially: Moderate Severity Currently: Moderate Pain Intensity: 8 Pain Scale Used: 0-10 Numeric Location: Diffuse - lower abdomen Radiates: No Aggravating Factor(s): Nothing Alleviating Factor(s): OTC Analgesics Associated Signs and Symptoms: Positive: Nausea. Negative: Fever, Cough, Chest Pain, Back Pain, Constipation, Urinary Symptoms, Vomiting, Diarrhea Allergies/Adverse Reactions: Allergies Allergy/AdvReac Type Severity Reaction Status Date / Time Penicillins Allergy Intermediate Hives Verified 05/20/17 11:27 Home Medications: Home Medications Acetaminophen [Acetaminophen Extra Stren] 1,000 mg PO Q6HR PRN 05/20/17 [ History Confirmed 05/20/17] Docusate Sodium [Stool Softener] 100 mg PO DAILY 05/20/17 [History Confirmed 03/29] Omeprazole CAP* [Prilosec CAP* 20 MG] 20 mg PO DAILY 05/20/17 [History Confirmed 05/20/17] PMH/Surg Hx/FS Hx/Imm Hx Endocrine/Hematology History: Denies: Hx Diabetes, Hx Systemic Lupus Erythematosus Cardiovascular History: Reports: Hx Hypercholesterolemia, Hx Hypertension - ON DAILY MEDS Denies: Hx Congestive Heart Failure, Hx Pacemaker/ICD Respiratory History: Reports: Other Respiratory Problems/Disorders - radiation left side neck 2011 GI History: Reports: Hx Gastroesophageal Reflux Disease History: Denies: Hx Dialysis, Hx Renal Disease Musculoskeletal History: Reports: Hx Arthritis - HANDS, Other Musculoskeletal History - back pain and surgery, hx bilat wrist fx Denies: Hx Rheumatoid Arthritis, Hx Scoliosis Sensory History: Reports: Hx Cataracts - BILATERAL, Hx Contacts or Glasses Denies: Hx Hearing Aid Opthamlomology History: Reports: Hx Cataracts - BILATERAL, Hx Contacts or Glasses Neurological History: Reports: Other Neuro Impairments/Disorders - RADIATION AND CHEMO 2011 FOR LYMPHOMA Denies: Hx Headaches Psychiatric History: Denies: Hx Panic Disorder - Cancer History Cancer Type, Location and Year: breast ca left, basal cell, lymphoma Hx Chemotherapy: Yes - LYMPHOMA 2011 Hx Radiation Therapy: Yes - BREAST 1986,LYMPHOMA 2011 - Surgical History Surgery Procedure, Year, and Place: hysterectomy 1978 [facility]; lumpectomy left BREAST ca 1986 [facility]; partial thyroidectomy 1996 [facility]; 2010 BILATERAL CATARACTS [facility]; 1998 HERNIATED LUMBAR DISC [facility]. [facility]; BREAST SURGERY X 4 Hx Anesthesia Reactions: No Infectious Disease History: No Infectious Disease History: Denies: Traveled Outside the [place] in Last 30 Days - Family History Known Family History: Negative: Other - breast CA - Social History Occupation: Retired Lives: With Family Alcohol Use: None Alcohol Amount: FEW DRINKS A YEAR, SPECIAL OCCASSIONS Substance Use Type: Reports: None Smoking Status (MU): Never Smoked Tobacco Have You Smoked in the Last Year: No Review of Systems Constitutional: Negative Negative: Fever, Chills Eyes: Negative ENT: Negative Cardiovascular: Negative Negative: Chest Pain Respiratory: Negative Negative: Shortness Of Breath, Cough Positive: Abdominal Pain - diffuse lower , Nausea, Other - unable to pass gas. Negative: Vomiting, Diarrhea Genitourinary: Negative Musculoskeletal: Negative Negative: Arthralgia, Myalgia Skin: Negative Negative: Rash Neurological: Negative Psychological: Normal All Other Systems Reviewed And Are Negative: Yes Physical Exam Triage Information Reviewed: Yes Vital Signs On Initial Exam: Initial Vitals Temp Pulse Resp BP Pulse Ox 98.3 F 66 18 167/62 99 05/20/17 08:45 05/20/17 08:45 05/20/17 08:45 05/20/17 08:45 05/20/17 08:45 Vital Signs Reviewed: Yes Appearance: Positive: Well-Appearing, Well-Nourished, Pain Distress Skin: Positive: Warm, Skin Color Reflects Adequate Perfusion, Dry Head/Face: Positive: Normal Head/Face Inspection Eyes: Positive: EOMI, SONAM ENT: Positive: Normal ENT inspection, Hearing grossly normal Neck: Positive: Supple, Nontender Respiratory/Lung Sounds: Positive: Clear to Auscultation, Breath Sounds Present Cardiovascular: Positive: RRR, Pulses are Symmetrical in both Upper and Lower Extremities Abdomen Description: Positive: Soft. Negative: Nontender - diffuse abdominal tenderness Bowel Sounds: Positive: Hypoactive Musculoskeletal: Positive: Normal, Strength/ROM Intact Neurological: Positive: Sensory/Motor Intact, Alert, Oriented to Person Place, Time Psychiatric: Positive: Affect/Mood Appropriate Diagnostics - Vital Signs Vital Signs Temp Pulse Resp BP Pulse Ox 05/20/17 10:02 70 18 153/74 95 05/20/17 09:10 97.4 F 63 18 143/58 97 05/20/17 08:45 98.3 F 66 18 167/62 99 - Laboratory Lab Results: Lab Results 05/20/17 05/20/17 05/20/17 Range/Units 10:30 10:30 10:30 WBC (3.5-10.8) 10^3/ul RBC (4.0-5.4) 10^6/ul Hgb (12.0-16.0) g/dl Hct (35-47) % MCV (80-97) fL MCH (27-31) pg MCHC (31-36) g/dl RDW (10.5-15) % Plt Count (150-450) 10^3/ul MPV (7.4-10.4) um3 Neut % (Auto) (38-83) % Lymph % (Auto) (25-47) % [place] % (Auto) (1-9) % Eos % (Auto) (0-6) % Baso % (Auto) (0-2) % Absolute Neuts (auto) (1.5-7.7) 10^3/ul Absolute Lymphs (auto) (1.0-4.8) 10^3/ul Absolute Monos (auto) (0-0.8) 10^3/ul Absolute Eos (auto) (0-0.6) 10^3/ul Absolute Basos (auto) (0-0.2) 10^3/ul Absolute Nucleated RBC 10^3/ul Nucleated RBC % INR (Anticoag Therapy) 0.86 L (0.89-1.11) APTT 25.5 L (26.0-36.3) seconds Sodium 131 L (133-145) mmol/L Potassium 4.3 (3.5-5.0) mmol/L Chloride 96 L (101-111) mmol/L Carbon Dioxide 29 (22-32) mmol/L Anion Gap 6 (2-11) mmol/L BUN 13 (6-24) mg/dL Creatinine 0.74 (0.51-0.95) mg/dL Est GFR ( Amer) 95.3 (>60) Est GFR (Non-Af Amer) 74.1 (>60) BUN/Creatinine Ratio 17.6 (8-20) Glucose 151 H (70-100) mg/dL Lactic Acid (0.5-2.0) mmol/L Calcium 9.8 (8.6-10.3) mg/dL Magnesium 1.9 (1.9-2.7) mg/dL Total Bilirubin 0.50 (0.2-1.0) mg/dL AST 68 H (13-39) U/L ALT 83 H (7-52) U/L Alkaline Phosphatase 94 (34-104) U/L C-Reactive Protein 1.32 (< 5.00) mg/L B-Natriuretic Peptide 118 H ( - 100) pg/mL Total Protein 6.9 (6.4-8.9) g/dL Albumin 4.4 (3.2-5.2) g/dL Globulin 2.5 (2-4) g/dL Albumin/Globulin Ratio 1.8 (1-3) Lipase 13 (11.0-82.0) U/L Urine Color Urine Appearance Urine pH (5-9) Ur Specific [place] (1.010-1.030) Urine Protein (Negative) Urine Ketones (Negative) Urine Blood (Negative) Urine Nitrate (Negative) Urine Bilirubin (Negative) Urine Urobilinogen (Negative) Ur Leukocyte Esterase (Negative) Urine WBC (Auto) (Absent) Urine RBC (Auto) (Absent) Ur Squamous Epith Cells (Absent) Urine Bacteria (Absent) Hyaline Casts (Absent) Urine Glucose (Negative) 05/20/17 05/20/17 05/20/17 Range/Units 10:30 10:30 12:29 WBC 8.7 (3.5-10.8) 10^3/ul RBC 4.38 (4.0-5.4) 10^6/ul Hgb 13.3 (12.0-16.0) g/dl Hct 40 (35-47) % MCV 91 (80-97) fL MCH 30 (27-31) pg MCHC 34 (31-36) g/dl RDW 14 (10.5-15) % Plt Count 223 (150-450) 10^3/ul MPV 8 (7.4-10.4) um3 Neut % (Auto) 88.4 H (38-83) % Lymph % (Auto) 5.4 L (25-47) % [place] % (Auto) 4.4 (1-9) % Eos % (Auto) 1.2 (0-6) % Baso % (Auto) 0.6 (0-2) % Absolute Neuts (auto) 7.7 (1.5-7.7) 10^3/ul Absolute Lymphs (auto) 0.5 L (1.0-4.8) 10^3/ul Absolute Monos (auto) 0.4 (0-0.8) 10^3/ul Absolute Eos (auto) 0.1 (0-0.6) 10^3/ul Absolute Basos (auto) 0 (0-0.2) 10^3/ul Absolute Nucleated RBC 0 10^3/ul Nucleated RBC % 0 INR (Anticoag Therapy) (0.89-1.11) APTT (26.0-36.3) seconds Sodium (133-145) mmol/L Potassium (3.5-5.0) mmol/L Chloride (101-111) mmol/L Carbon Dioxide (22-32) mmol/L Anion Gap (2-11) mmol/L BUN (6-24) mg/dL Creatinine (0.51-0.95) mg/dL Est GFR ( Amer) (>60) Est GFR (Non-Af Amer) (>60) BUN/Creatinine Ratio (8-20) Glucose (70-100) mg/dL Lactic Acid 1.0 (0.5-2.0) mmol/L Calcium (8.6-10.3) mg/dL Magnesium (1.9-2.7) mg/dL Total Bilirubin (0.2-1.0) mg/dL AST (13-39) U/L ALT (7-52) U/L Alkaline Phosphatase (34-104) U/L C-Reactive Protein (< 5.00) mg/L B-Natriuretic Peptide ( - 100) pg/mL Total Protein (6.4-8.9) g/dL Albumin (3.2-5.2) g/dL Globulin (2-4) g/dL Albumin/Globulin Ratio (1-3) Lipase (11.0-82.0) U/L Urine Color Yellow Urine Appearance Cloudy Urine pH 5.0 (5-9) Ur Specific [place] 1.021 (1.010-1.030) Urine Protein 1+(30 mg/dl) H (Negative) Urine Ketones Trace H (Negative) Urine Blood Negative (Negative) Urine Nitrate Negative (Negative) Urine Bilirubin Negative (Negative) Urine Urobilinogen Negative (Negative) Ur Leukocyte Esterase 2+ H (Negative) Urine WBC (Auto) 2+(11-20/hpf) H (Absent) Urine RBC (Auto) Absent (Absent) Ur Squamous Epith Cells Present H (Absent) Urine Bacteria Absent (Absent) Hyaline Casts Present H (Absent) Urine Glucose Negative (Negative) Result Diagrams: 05/20/17 10:30 05/20/17 10:30 Lab Statement: Any lab studies that have been ordered have been reviewed, and results considered in the medical decision making process. - CT CT A/P W CT Interpretation: Positive (See Comments) - IMPRESSION: 1. Small right subdiaphragmatic fluid collection. 2. Stable hypodense liver lesions, likely cysts. CT Interpretation Completed By: Radiologist - ED physician has reviewed this radiology report and agrees. Abdominal Pain Fem Course/Dx - Course Course Of Treatment: Reviewed pts medication and allergy lists. High blood pressure noted. PATIENT CONTINUES VOMITING IN ED. DISCUSSED RESULTS WITH PATIENT/DAUGHTER. ADMIT HOSPITALIST. NO CRITICAL CARE TIME. - Diagnoses Provider Diagnoses: Abdominal pain, Partial small bowel obstruction, Vomiting Discharge - Discharge Plan Condition: Stable Disposition: ADMITTED TO [facility] The documentation as recorded by the Rob ayala Benjamin accurately reflects the service I personally performed and the decisions made by , Luis Ward MD.
[2017-05-20] MEDS: Enoxaparin(*) 40 MG/0.4 ML SYR SUBCUT SCH (18:04)
--- NOTE | 2017-05-20 21:15 | RAD ---
Indication: Abdominal pain. Possible small bowel obstruction. NG tube placement. Comparison: May 20, [address] March 09, 2017 chest radiograph. Technique: Upright AP 1745 hours Report: Elevated lung volumes and both diffuse mild prominence of the interstitial markings and patchy rarefaction of the mid to upper lung zone interstitial markings. No focal pulmonary lesion, compelling alveolar consolidation, pleural effusion, pneumothorax. Upper normal heart size. Unremarkable central pulmonary vasculature and mediastinal contours. Tip of nasogastric tube at level of gastric cardia. IMPRESSION: The nasogastric tube should be advanced.
[2017-05-20] MEDS: Ondansetron INJ* 2 MG/ML VIAL IV PRN (21:18)
--- NOTE | 2017-05-20 21:30 | HP ---
SUPERVISING PHYSICIAN ADDENDUM NOW INCLUDED ON THIS REPORT CC: Dr. Mamie Caban * ADMISSION HISTORY AND PHYSICAL: DATE OF ADMISSION: PRIMARY CARE PROVIDER: Dr. Mamie Caban. ADMITTING PROVIDER: HEENA Osorio SUPERVISING PHYSICIAN: Dr. Rekha Spencer * (DICTATED BY HEENA OSORIO) CHIEF COMPLAINT: Abdominal pain. HISTORY OF PRESENT ILLNESS: This is an 87-year-old female with history of chronic back pain, hypertension, hypothyroidism, and relatively recent TIA, who presented to the emergency department with complaints of abdominal pain. The patient had not reported any associated nausea or vomiting, but when she presented to the emergency department, had multiple episodes of vomiting and has been unable to keep anything down today. The patient has been struggling with back pain recently and has been taking oxycodone on a regular basis. She states that she generally struggles with constipation but tries to keep up with MiraLAX every few days to prevent severe constipation. She believes that her last bowel movement was a day before last, but this was not a large bowel movement, but was rather hard and small. The patient denies any other recent illness including recent fevers, chest pain , shortness of breath, or cough. The patient has had no history of prior bowel obstructions. PAST MEDICAL HISTORY: 1. Chronic back pain. 2. Hypertension. 3. TIA in February 2017. 4. Hypothyroidism. 5. History of breast cancer, status post lumpectomy and radiation. 6. History of lymphoma. PAST SURGICAL HISTORY: 1. Lumpectomy. 2. Hysterectomy. 3. Unspecified back surgery. 4. Partial thyroidectomy. HOME MEDICATIONS: 1. Acetaminophen 1000 mg p.o. q.6 hours as needed for pain. 2. Aspirin 81 mg p.o. daily. 3. Atorvastatin 10 mg p.o. daily. 4. Docusate 100 mg p.o. daily. 5. Gabapentin 300 mg p.o. each morning and 600 mg p.o. each evening. 6. Levothyroxine 50 mcg p.o. daily. 7. Lisinopril 30 mg p.o. daily. 8. Omeprazole 20 mg p.o. daily. 9. Oxycodone 5 mg p.o. t.i.d. as needed for back pain. SOCIAL HISTORY: The patient lives alone. Denies any significant history of smoking or alcoholism. REVIEW OF SYSTEMS: As listed above in HPI. All other systems were reviewed and otherwise negative. PHYSICAL EXAMINATION GENERAL: This is an elderly female who appears ill and uncomfortable, but is in no acute distress. VITAL SIGNS: Initial vitals, temperature 98.3 degrees Fahrenheit, pulse 66 beats per minute, respiratory rate 18, oxygen saturation 99% on room air, and blood pressure 176/62 mmHg. HEENT: Head is normocephalic, atraumatic. Mucous membranes are dry. RESPIRATORY: Lungs are clear to auscultation without wheezes, crackles, or rhonchi. CARDIOVASCULAR: Heart has a regular rate and rhythm without murmurs, rubs, or gallops. ABDOMEN: Soft. No bowel sounds are present and she is diffusely tender to palpation. EXTREMITIES: No edema appreciated. PSYCH: The patient is alert and appropriately oriented. SKIN: No concerning rashes or lesions. DIAGNOSTIC STUDIES/LAB DATA: CBC was essentially normal with white blood cell count of 8700, hemoglobin of 13.3 g/dL, and a platelet count of 223,000. Normal INR of 0.86. Comprehensive metabolic panel shows a sodium of 131, potassium of 4.3, bicarb 29, BUN of 13, creatinine 0.74. Random glucose level 151. Lactic acid normal at 1.0. Transaminases slightly elevated with an AST of 68 and ALT of 83. CRP is negative. BNP only mildly elevated at 118. Lipase normal at 13. Urinalysis: Positive for trace ketones, 2+ leuk esterase, 2+ white blood cells. Hospital imaging: CT of the abdomen and pelvis shows a distended stomach with fluid-filled loops of small bowel and a large amount of stool in the large bowel. ASSESSMENT AND PLAN: This is a very pleasant 87-year-old female with chronic back pain, hypertension, hypothyroidism, and transient ischemic attack, who presents with complaints of abdominal pain, developed severe nausea and vomiting in the emergency department with evidence of at least partial obstruction on CT. 1. Partial small bowel obstruction secondary to constipation - the patient has had multiple bouts of vomiting and is agreeable to NG tube placement for gastric decompression. I believe the etiology of her obstruction is constipation and we will start with a Fleet Enema for decompression of the large bowel. 2. Constipation - as above 3. Abnormal urinalysis - there are signs of urinary tract infection and this may be an incidental finding. Urine culture is pending at this time and we will hold off on empiric treatment. 4. Hypertension - the patient has been unable to take her oral hypertensive medication, was noted to be quite hypertensive in the emergency department. We will hold all of her oral medications at this time, but treat with p.r.n. hydralazine as her systolic pressures continue to climb. 5. Hypothyroidism. TSH last checked on 05/10/17 and was normal at 1.11. We plan to continue her current dose of levothyroxine when she is able to resume oral medication. 6. Chronic back pain - the patient complains of abdominal pain and back pain, will be treated with IV morphine at this time and we will resume her usual oral oxycodone when she is able to tolerate oral again. 7. Code status. The patient is full code. 8. Healthcare proxy is her daughter, Darling, with an address listed in [place], [place]. 9. DVT prophylaxis. The patient will be started on subcutaneous Lovenox for DVT prophylaxis. 10. Disposition: The patient is being admitted to the inpatient status with estimated length of stay to be greater than 2 midnights. HEENA OSORIO ADDENDUM: Mrs. Ravi is an 87-year-old female who presented with history of constipation and intractable vomiting. She has partial small bowel obstruction on her CT scan. She is going to be treated with intravenous hydration. Due to intractable vomiting, NG tube needed to be placed for gastric decompression. She is going to be also treated with laxatives and enemas for her constipation. For further details of patient's presentation and plan, please see history and physical dictated by HEENA Osorio, on 05/20/17, with which I agree. REKHA SPENCER MD [id number]/CPS #: [id number]/CPS #: [id number] TJ
--- NOTE | 2017-05-20 22:36 | HP ---
HISTORY AND PHYSICAL: * ADDENDUM: Mrs. Ravi is an 87-year-old female who presented with history of constipation and intractable vomiting. She has partial small bowel obstruction on her CT scan. She is going to be treated with intravenous hydration. Due to intractable vomiting, NG tube needed to be placed for gastric decompression. She is going to be also treated with laxatives and enemas for her constipation. For further details of patient's presentation and plan, please see history and physical dictated by HEENA Ly, on 05/20/17, with which I agree. [id number]/CPS #: [id number] MTDD
[2017-05-21] MEDS: Morphine INJ* 4 MG/ML 1 ML CARPUJECT IV PRN ×4 (02:05→21:50)
[2017-05-21] MEDS: NS 0.9% 1000 ML* 1,000 ML IV SCH ×2 (06:09→23:59)
[2017-05-21 06:35] LABS: BUN/Creatinine Ratio 18.6 (8-20); Calcium 8.5 mg/dL (8.6-10.3); EGFR African American 101.6 (>60); Magnesium 1.8 mg/dL (1.9-2.7); Potassium 3.4 mmol/L (3.5-5.0)
[2017-05-21] MEDS ORDERED: Magnesium Sulfate 2 GM IV* 2 GM/50 ML BAG IVPB ONE (08:20)
[2017-05-21] MEDS ORDERED: Influenza VAC *QUAD* 2017-18* 0.5 ML SYRINGE IM ONE (09:00)
[2017-05-21] MEDS ORDERED: Sodium Phosphate ADULT ENEMA* 118 ml bottle PR ONE (09:40)
--- NOTE | 2017-05-21 09:45 | RAD ---
Indication: Bowel obstruction. Flat plate of the abdomen demonstrates contrast in the urinary bladder. Nonspecific bowel gas pattern is noted with colonic air as well as mild distention of small bowel. Compared to previous exam of May 20, 2017 gastric distention appears to be improved. IMPRESSION: Moderately distended loops of small bowel. The stomach is now collapsed.
[2017-05-21] MEDS ORDERED: Magnesium CITRATE* 300 ML BTL PO ONE (10:08)
--- NOTE | 2017-05-21 10:17 | PN ---
Subjective Date of Service: 05/21/17 Interval History: This is an 87 yo female admitted yesterday with partial SBO likely secondary to constipation. She tolerated an NG overnight. She had no additional vomiting. Abd pain is persistent but perhaps better. She reported a moderate sized BM this am. NG has been clamped ~1hr for KUB and she reports no increase in nausea or additional vomiting. Objective Active Medications: Enoxaparin Sodium (Lovenox(*)) 40 mg SUBCUT Q24H [facility] Last Admin: 05/20/17 18:04 Dose: 40 mg Hydralazine HCl (Apresoline Iv*) 5 mg IV SLOW PU Q6H PRN PRN Reason: sBP>200 Sodium Chloride (Ns 0.9% 1000 Ml*) 1,000 mls @ 75 mls/hr IV PER RATE [facility] Last Admin: 05/21/17 06:09 Dose: 75 mls/hr Potassium Chloride (Potassium Chloride 10 Meq/50 Ml Ivpremix*) 10 meq in 50 mls @ 50 mls/hr IV Q1H [facility] Stop: 05/21/17 11:59 Magnesium Citrate (Citrate Of Magnesia*) 150 ml PO ONCE ONE Stop: 05/21/17 10:09 Morphine Sulfate (Morphine Inj (Syringe)*) 4 mg IV Q4H PRN PRN Reason: PAIN Last Admin: 05/21/17 02:05 Dose: 4 mg Ondansetron HCl (Zofran Inj*) 4 mg IV Q4H PRN PRN Reason: NAUSEA/VOMITING Last Admin: 05/20/17 21:18 Dose: 4 mg Prochlorperazine Edisylate (Compazine Inj*) 5 mg IV Q6H PRN PRN Reason: NAUSEA/VOMITING Last Admin: 05/20/17 16:33 Dose: 5 mg Senna (Senokot Tab*) 1 tab PO BID [facility] Vital Signs: Temp Pulse Resp BP Pulse Ox 98.5 F 87 16 138/71 98 05/21/17 03:33 05/21/17 03:33 05/21/17 07:32 05/21/17 03:33 05/21/17 03:33 Appearance: This is a pleasant elderly female in NAD with NG in place and accompanied by her daughter Respiratory: Symmetrical Chest Expansion and Respiratory Effort, Clear to Auscultation Cardiovascular: NL Sounds; No Murmurs; No JVD, RRR Abdominal: - - soft, diffusely TTP, bowel sounds present Extremities: No Edema Neurological: Alert and Oriented x 3 Result Diagrams: 05/20/17 10:30 05/21/17 06:00 Additional Lab and Data: . Diagnostic Imaging: KUB 9/8 - moderately dilated loops of small bowel, decompressed stomach Assess/Plan/Problems-Billing Assessment: This is an 87 yo female with HTN, hypothyroidism, h/o TIA and chronic back pain which she has been treating with increasing doses of opiates who presents with abd pain, n/v with evidence of partial SBO and constipation. - Patient Problems (1) SBO (small bowel obstruction) Comment: Likely secondary to constipation Vomiting now resolved and she did have a moderate BM this am Will remove NG and attempt clear liquids with additional bowel decompression with oral laxatives (2) History of TIA (transient ischemic attack) (3) HTN (hypertension) Comment: Normotensive to mild HTN Holding oral antihypertensives at this time until it is clear she can tolerate oral intake (4) Hypothyroidism Comment: Continue levothyroxine. (5) Full code status (6) DVT prophylaxis Comment: SQ heparin Status and Disposition: Inpatient. Possible dc tomorrow home
[2017-05-21] MEDS: Senna TAB PO SCH ×2 (11:00→21:50)
[2017-05-21] MEDS: KCL 10 MEQ/50 ML IVPREMIX* 10 MEQ/50 ML BAG IV SCH ×3 (12:47→16:42)
[2017-05-21] MEDS ORDERED: KCL 10 MEQ/50 ML IVPREMIX* 10 MEQ/50 ML BAG ONE ×2 (14:30→16:41)
[2017-05-21] MEDS: PROCHLORPERAZINE INJ 5 MG/ML 2 ML VIAL IV PRN (14:35)
[2017-05-21] MEDS: Enoxaparin(*) 40 MG/0.4 ML SYR SUBCUT SCH (16:40)
[2017-05-21] MEDS: Ondansetron INJ* 2 MG/ML VIAL IV PRN (16:40)
[2017-05-22 06:33] LABS: EGFR African American 126.2 (>60); EGFR Non-African American 98.1 (>60); Potassium 3.2 mmol/L (3.5-5.0)
[2017-05-22] MEDS: Morphine INJ* 4 MG/ML 1 ML CARPUJECT IV PRN (08:19)
[2017-05-22] MEDS: Senna TAB PO SCH ×2 (08:19→20:59)
[2017-05-22] MEDS: Ondansetron INJ* 2 MG/ML VIAL IV PRN ×2 (08:25→12:12)
[2017-05-22] MEDS ORDERED: Magnesium CITRATE* 300 ML BTL PO ONE (08:50)
--- NOTE | 2017-05-22 08:55 | PN ---
Subjective Date of Service: 05/22/17 Interval History: Patient reports no significant change in symptoms. She has had no further BMs since yesterday am. Reports moderate abdominal pain and nausea but no further vomiting. No appetite. Objective Active Medications: Enoxaparin Sodium (Lovenox(*)) 40 mg SUBCUT Q24H [facility] Last Admin: 05/21/17 16:40 Dose: 40 mg Hydralazine HCl (Apresoline Iv*) 5 mg IV SLOW PU Q6H PRN PRN Reason: sBP>200 Sodium Chloride (Ns 0.9% 1000 Ml*) 1,000 mls @ 75 mls/hr IV PER RATE [facility] Last Admin: 05/21/17 23:59 Dose: 75 mls/hr Magnesium Citrate (Citrate Of Magnesia*) 150 ml PO ONCE ONE Stop: 05/22/17 08:51 Morphine Sulfate (Morphine Inj (Syringe)*) 4 mg IV Q4H PRN PRN Reason: PAIN Last Admin: 05/22/17 08:19 Dose: 4 mg Ondansetron HCl (Zofran Inj*) 4 mg IV Q4H PRN PRN Reason: NAUSEA/VOMITING Last Admin: 05/22/17 08:25 Dose: 4 mg Prochlorperazine Edisylate (Compazine Inj*) 5 mg IV Q6H PRN PRN Reason: NAUSEA/VOMITING Last Admin: 05/21/17 14:35 Dose: 5 mg Senna (Senokot Tab*) 1 tab PO BID [facility] Last Admin: 05/22/17 08:19 Dose: 1 tab Vital Signs: Temp Pulse Resp BP Pulse Ox 98.6 F 92 19 184/80 95 05/22/17 07:58 05/22/17 07:58 05/22/17 08:19 05/22/17 07:58 05/22/17 07:58 Oxygen Devices in Use Now: None Appearance: Elderly female in NAD. Appears fatigued Respiratory: Symmetrical Chest Expansion and Respiratory Effort, Clear to Auscultation Cardiovascular: NL Sounds; No Murmurs; No JVD, RRR Abdominal: - - distended, slightly firm and TTP but bowel sounds present Extremities: No Edema Skin: No Rash or Ulcers Neurological: Alert and Oriented x 3 Result Diagrams: 05/20/17 10:30 05/22/17 05:55 Additional Lab and Data: . Diagnostic Imaging: KUB 9/8 - moderately dilated loops of small bowel, decompressed stomach KUB 9/9 - some improvement in small bowel dilitation, stool present in large colon Assess/Plan/Problems-Billing Assessment: This is an 87 yo female with HTN, hypothyroidism, h/o TIA and chronic back pain which she has been treating with increasing doses of opiates who presents with abd pain, n/v with evidence of partial SBO and constipation. - Patient Problems (1) SBO (small bowel obstruction) Comment: Likely secondary to constipation Vomiting now resolved and she did have a moderate BM yesterday Tolerating clear liquids but still nauseated with abd pain Cont with laxatives, pt declines repeat enema (2) History of TIA (transient ischemic attack) (3) HTN (hypertension) Comment: Normotensive to mild HTN Holding oral antihypertensives at this time until it is clear she can tolerate oral intake (4) Hypothyroidism Comment: Continue levothyroxine. (5) Full code status (6) DVT prophylaxis Comment: SQ heparin Status and Disposition: Inpatient. Anticipate additional 1-2d LOS
--- NOTE | 2017-05-22 09:43 | RAD ---
INDICATION: Abdominal pain with signs of obstruction COMPARISON: Similar radiograph dated May 21, 2017 TECHNIQUE: A single supine view of the abdomen was obtained. FINDINGS: The previously placed gastric tube has been removed. There are air-filled loops of small bowel measuring up to 3.4 cm in diameter overlying the left lower quadrant. Gas and stool is seen overlying the colon but with a possibility of gas overlying the rectum. There are no definite signs of free gas in the peritoneal cavity. IMPRESSION: MILDLY DILATED AIR-FILLED LOOPS OF SMALL BOWEL WITH A PAUCITY OF DISTAL COLONIC GAS COULD BE SEEN IN THE SETTING OF PARTIAL OR COMPLETE BOWEL OBSTRUCTION. THE PATIENT'S GASTRIC TUBE APPEARS TO HAVE BEEN REMOVED SINCE THE PRIOR RADIOGRAPH.
[2017-05-22] MEDS ORDERED: Sodium Phosphate ADULT ENEMA* 118 ml bottle PR ONE (11:23)
[2017-05-22 12:30] LABS: Urine Bacteria Absent (Absent); Urine Bilirubin Negative (Negative); Urine Glucose 1+(50 mg/dL) (Negative); Urine Nitrite Negative (Negative)
[2017-05-22] MEDS: Enoxaparin(*) 40 MG/0.4 ML SYR SUBCUT SCH (17:01)
[2017-05-23 05:47] LABS: BUN/Creatinine Ratio 25.4 (8-20); EGFR African American 123.7 (>60); EGFR Non-African American 96.2 (>60)
[2017-05-23] MEDS: Lisinopril TAB* 10 MG PO SCH (08:11)
[2017-05-23] MEDS: Morphine INJ* 4 MG/ML 1 ML CARPUJECT IV PRN ×3 (08:11→17:49)
[2017-05-23] MEDS: Ondansetron INJ* 2 MG/ML VIAL IV PRN (08:11)
[2017-05-23] MEDS: KCL 10 MEQ/50 ML IVPREMIX* 10 MEQ/50 ML BAG IV SCH ×3 (08:12→13:06)
[2017-05-23] MEDS: Senna TAB PO SCH ×2 (08:12→20:29)
[2017-05-23 08:23] LABS: Magnesium 2.3 mg/dL (1.9-2.7)
--- NOTE | 2017-05-23 10:38 | RAD ---
Indication: Reassess small bowel obstruction. Comparison: May 22, 2017 May 20, 2017 CT. Technique: Supine view of the abdomen. Report: Persistent dilated small bowel loops measuring up to 3.4 cm at the LEFT lower quadrant. Moderate stool in the colon without significant rectal distension. Calcified gallstones noted at the RIGHT upper quadrant based on correlation with CT. Unremarkable soft tissue contours. IMPRESSION: Small bowel obstruction versus ileus without significant interval change.
[2017-05-23] MEDS ORDERED: Sodium Phosphate ADULT ENEMA* 118 ml bottle PR ONE (11:32)
--- NOTE | 2017-05-23 11:38 | PN ---
Subjective Date of Service: 05/23/17 Interval History: Patient reports no improvement in her sxs. She is still intermittently nauseated and vomited again overnight. Some abd pain. No additional BM. She is taking some sips of water and gingerale, otherwise no appetite. Objective Active Medications: Enoxaparin Sodium (Lovenox(*)) 40 mg SUBCUT Q24H [facility] Last Admin: 05/22/17 17:01 Dose: 40 mg Hydralazine HCl (Apresoline Iv*) 5 mg IV SLOW PU Q6H PRN PRN Reason: sBP>200 Potassium Chloride 40 meq/ (Lactated Ringer's) 1,020 mls @ 75 mls/hr IVPB Q13H [facility] Lisinopril (Prinivil Tab*) 30 mg PO DAILY [facility] Last Admin: 05/23/17 08:11 Dose: 30 mg Morphine Sulfate (Morphine Inj (Syringe)*) 4 mg IV Q4H PRN PRN Reason: PAIN Last Admin: 05/23/17 08:11 Dose: 4 mg Ondansetron HCl (Zofran Inj*) 4 mg IV Q4H PRN PRN Reason: NAUSEA/VOMITING Last Admin: 05/23/17 08:11 Dose: 4 mg Prochlorperazine Edisylate (Compazine Inj*) 5 mg IV Q6H PRN PRN Reason: NAUSEA/VOMITING Last Admin: 05/21/17 14:35 Dose: 5 mg Senna (Senokot Tab*) 1 tab PO BID [facility] Last Admin: 05/23/17 08:12 Dose: 1 tab Vital Signs: Temp Pulse Resp BP Pulse Ox 98.8 F 93 20 171/75 95 05/23/17 03:44 05/23/17 03:44 05/23/17 08:11 05/23/17 03:44 05/23/17 03:44 Oxygen Devices in Use Now: None Appearance: Mildly ill appearing elderly female in NAD Respiratory: Symmetrical Chest Expansion and Respiratory Effort, Clear to Auscultation Cardiovascular: NL Sounds; No Murmurs; No JVD, RRR Abdominal: - - abd distended, slightly firm, only mildly tender, BS present Extremities: No Edema Skin: No Rash or Ulcers Neurological: Alert and Oriented x 3 Result Diagrams: 05/20/17 10:30 09/10/17 05:12 Additional Lab and Data: . Diagnostic Imaging: KUB 9/8 - moderately dilated loops of small bowel, decompressed stomach KUB 9/9 - some improvement in small bowel dilitation, stool present in large colon KUB 9/10 - persistently dilated loops of SB with moderate stool in large colon, little change since yesterday Assess/Plan/Problems-Billing Assessment: This is an 87 yo female with HTN, hypothyroidism, h/o TIA and chronic back pain which she has been treating with increasing doses of opiates who presents with abd pain, n/v with evidence of partial SBO and constipation. - Patient Problems (1) SBO (small bowel obstruction) Comment: Likely secondary to constipation Vomited again overnight, nothing this am, no additional BM Tolerating sips of clear liquids Cont with laxatives Pt refused repeat enema yesterday, but no is agreeable Requested consult from general surgery (2) History of TIA (transient ischemic attack) (3) HTN (hypertension) Comment: More consistently hypertensive Restart oral hypertensives as tolerated (4) Hypothyroidism Comment: Continue levothyroxine. (5) Full code status (6) DVT prophylaxis Comment: SQ heparin Status and Disposition: Inpatient. Anticipate additional 1-2d LOS
[2017-05-23] MEDS ORDERED: KCL 10 MEQ/50 ML IVPREMIX* 10 MEQ/50 ML BAG ONE (12:59)
[2017-05-23] MEDS ORDERED: Polyethylene Glycol 3350* 17 GM PACKET ONE (17:34)
[2017-05-23] MEDS: Polyethylene Glycol 3350* 17 GM PACKET PO ONE (17:39)
[2017-05-23] MEDS: Enoxaparin(*) 40 MG/0.4 ML SYR SUBCUT SCH (17:39)
[2017-05-23] MEDS: PROCHLORPERAZINE INJ 5 MG/ML 2 ML VIAL IV PRN (17:49)
--- NOTE | 2017-05-23 22:15 | PN ---
Progress Note - Progress Note Date of Service: 05/23/17 Note: Surgery Stopped to consult, but pt. sound asleep. Will consult tomorrow. JOYFostyuli
[2017-05-24] MEDS: Ondansetron INJ* 2 MG/ML VIAL IV PRN ×4 (03:22→16:50)
--- NOTE | 2017-05-24 05:01 | PN ---
Progress Note - Progress Note Date of Service: 05/24/17 Note: Nursing called reporting tachycardia sustained in the 160s. Upon arrival, Mrs Ravi, an 87F admitted for SBO, reports a mild L parasternal discomfort without SOB, nausea, sweats, palpitations, or light-headedness. She thinks she had atrial fibrillation in February of this year, but ECGs from that month are NSR and no mention of AFIB is found in her H&P or DC summary. Her current ECG shows AFIB/AFLUT RVR rate of 162, no ischemia. vitals: hypertensive systolic 170, HR sustained 160s general: WNWD elderly white female lungs: CTAB, normal effort CV: TIR/IR, normal S1S2 abdomen: mildly distended, mild diffuse discomfort, no rebound/guarding/rigidity assessment : plan AFIB/RVR, new onset : transfer to telemetry : diltiazem bolus/GTT : heparin GTT, no initial bolus : D/C enoxaparin : supplemental oxygen : trend troponin
[2017-05-24] MEDS ORDERED: Diltiazem IV* 5 MG/ML 5 ML VIAL (for loading dose/IV Push) (25 MG) IV SLOW PU ONE (05:05)
[2017-05-24] MEDS ORDERED: Diltiazem DRIP* 100 MG/100 ML ADDV.BAG IVPB ONE (05:05)
[2017-05-24] MEDS ORDERED: Heparin DRIP 25,000 UNITS(*) 25,000 UNITS/500 ML BAG IV SCH (05:15)
[2017-05-24] MEDS ORDERED: Heparin VIAL(*) 5000 UNITS/ML VIAL (FIVE THOUSAND) IV SCH (06:00)
[2017-05-24] MEDS: NS 0.9% w/ 40 Meq KCL 1000 ML* 1,000 ML IV SCH ×2 (06:40→23:01)
[2017-05-24] MEDS: PROCHLORPERAZINE INJ 5 MG/ML 2 ML VIAL IV PRN ×3 (07:00→23:24)
[2017-05-24] MEDS: Morphine INJ* 4 MG/ML 1 ML CARPUJECT IV PRN ×4 (07:07→23:25)
[2017-05-24 07:31] LABS: BUN/Creatinine Ratio 41.3 (8-20); Blood Urea Nitrogen 26 mg/dL (6-24); CO2 Carbon Dioxide 29 mmol/L (22-32); Calcium 8.7 mg/dL (8.6-10.3); Chloride 96 mmol/L (101-111); EGFR African American 114.7 (>60); EGFR Non-African American 89.2 (>60); Glucose 167 mg/dL (70-100); Magnesium 2.4 mg/dL (1.9-2.7); Sodium 129 mmol/L (133-145)
[2017-05-24 07:47] LABS: Anion Gap 4 mmol/L (2-11)
[2017-05-24] MEDS: Lisinopril TAB* 10 MG PO SCH (07:56)
[2017-05-24] MEDS: Polyethylene Glycol 3350* 17 GM PACKET PO SCH (07:56)
[2017-05-24] MEDS: Senna TAB PO SCH (07:56)
--- NOTE | 2017-05-24 09:19 | RAD ---
Indication: Evaluate for small bowel obstruction. Flat plate of the abdomen demonstrates moderately distended loops of small bowel. This appears to be similar in appearance to that seen on May 23, 2017. IMPRESSION: Small bowel dilatation consistent with small bowel obstruction not significantly changed since May 23, 2017.
[2017-05-24] MEDS ORDERED: Metoprolol Tartrate TAB* 25 MG ONE (09:38)
[2017-05-24] MEDS: Metoprolol Tartrate TAB* 25 MG PO SCH ×2 (09:43→22:12)
--- NOTE | 2017-05-24 09:47 | PN ---
Subjective Date of Service: 05/24/17 Interval History: Patient reports persistent nausea, some pain in LLL. She went in to rapid afib overnight and transferred to the telemetry unit. She converted to a sinus rhythm ~530a. She had a large volume of diarrhea as well. No additional BM or gas this am. No additional vomiting. Objective Active Medications: Heparin Sodium (Porcine) (Heparin Vial(*)) 0 units IV .PER PROTOCOL SITA PRN Reason: Protocol Hydralazine HCl (Apresoline Iv*) 5 mg IV SLOW PU Q6H PRN PRN Reason: sBP>200 Potassium Chloride/Sodium Chloride (Ns 0.9% W/ 40 Meq Kcl 1000 Ml*) 1,000 mls @ 75 mls/hr IV PER RATE [facility] Last Admin: 05/24/17 06:40 Dose: 75 mls/hr Lisinopril (Prinivil Tab*) 30 mg PO DAILY [facility] Last Admin: 05/24/17 07:56 Dose: 30 mg Metoprolol Tartrate (Lopressor Tab*) 25 mg PO BID [facility] Morphine Sulfate (Morphine Inj (Syringe)*) 4 mg IV Q4H PRN PRN Reason: PAIN Last Admin: 05/24/17 07:07 Dose: 4 mg Ondansetron HCl (Zofran Inj*) 4 mg IV Q4H PRN PRN Reason: NAUSEA/VOMITING Last Admin: 05/24/17 07:51 Dose: 4 mg Polyethylene Glycol/Electrolytes (Miralax*) 17 gm PO DAILY [facility] Last Admin: 05/24/17 07:56 Dose: 17 gm Polyethylene Glycol/Electrolytes (Miralax*) 17 gm PO ONCE ONE Stop: 05/24/17 16:31 Last Admin: 05/23/17 17:39 Dose: 17 gm Prochlorperazine Edisylate (Compazine Inj*) 5 mg IV Q6H PRN PRN Reason: NAUSEA/VOMITING Last Admin: 05/24/17 07:00 Dose: 5 mg Vital Signs: Temp Pulse Resp BP Pulse Ox 98.7 F 165 20 137/65 93 05/24/17 05:00 05/24/17 05:00 05/24/17 08:07 05/24/17 07:31 05/24/17 08:00 Oxygen Devices in Use Now: None Appearance: Elderly female who appears mildly ill and fatigued. Respiratory: Symmetrical Chest Expansion and Respiratory Effort, Clear to Auscultation Cardiovascular: NL Sounds; No Murmurs; No JVD, RRR Abdominal: - - abd soft, TTP in LLQ, BS present, mildly distended Extremities: No Edema Neurological: Alert and Oriented x 3 Result Diagrams: 05/20/17 10:30 05/24/17 08:05 Additional Lab and Data: . Diagnostic Imaging: KUB / - moderately dilated loops of small bowel, decompressed stomach KUB 05/22 - some improvement in small bowel dilitation, stool present in large colon KUB 05/23 - persistently dilated loops of SB with moderate stool in large colon, little change since yesterday KUB 05/24 - no significant change Assess/Plan/Problems-Billing Assessment: This is an 87 yo female with HTN, hypothyroidism, h/o TIA and chronic back pain which she has been treating with increasing doses of opiates who presents with abd pain, n/v with evidence of partial SBO and constipation. - Patient Problems (1) SBO (small bowel obstruction) Comment: Likely secondary to constipation She had diarrhea overnight No change in appearance on KUB and still nauseated Tolerating sips of clear liquids Cont with laxatives Requested consult from general surgery (2) Atrial fibrillation Comment: Rapid afib overnight Now converted to sinus early this am Start metoprolol, stop cardizem drip and heparin drip Patient recalls a h/o afib, but no prior documentation of such No plans to anticoagulate at this time due to brevity of afib Cont to monitor on tele today for episodes of paroxysmal afib (3) HTN (hypertension) Comment: Normotensive this am Cont oral hypertensives as tolerated (4) Hypothyroidism Comment: Continue levothyroxine. (5) History of TIA (transient ischemic attack) (6) Full code status (7) DVT prophylaxis Comment: SQ heparin Status and Disposition: Inpatient. Pending surgical consult, unsure of dc plan at this time
[2017-05-24] MEDS: Polyethylene Glycol 3350* 17 GM PACKET PO ONE (16:50)
[2017-05-24] MEDS ORDERED: Metoclopramide IV* 5 MG/ML 2 ML VIAL IV ONE (19:05)
--- NOTE | 2017-05-24 22:00 | CONS ---
CC: [facility]; Mamie Caban MD CONSULTATION REPORT: DATE OF CONSULT: 05/24/17 REFERRING PROVIDER: HEENA Ly REASON FOR CONSULTATION: Abdominal pain, distention and persistent nausea. HISTORY OF PRESENT ILLNESS: Ms. Gertrude Ravi is a very pleasant 87-year-old woman who lives here in [place] by herself, although her daughter is present and involved with her care who was admitted to [facility] medical service late last week after she developed with multiple episodes of vomiting and inabili ty to keep liquids and solids in her stomach. She had been struggling with some back pain recently and taking oxycodone on a regular basis, but trying to take medication for constipation including Mi raLAX every few days. She does have problems with constipation. She has had some minimal abdominal pain, felt more obstructed. She has not been passing flatus. When she was seen in the emergency room, she underwent a CT scan of her abdomen and pelvis. I did r eview these images. This showed some uniform dilation of the small bowel, which were fluid-filled, but no transition zone to decompress small bowel. There was also a large amount of stool throughout the entire colon with air within the stool. There were no other acute findings such as fluid or jose ramon e air. She was admitted to the medical service with a diagnosis of constipation especially in light of her narcotic use recently and has been given oral cathartic as well as enemas, but through today is stil l having some bowel distention, few bowel movements and has persisted nausea with inability to keep the significant amount of liquids in her stomach. PAST MEDICAL HISTORY: 1. Chronic back pain. 2. Hypertension. 3. History of TIA. 4. Hypothyroidism. 5. History of breast cancer. 6. Lymphoma. PAST SURGICAL HISTORY: 1. Open hysterectomy. 2. Unspecified back surgery. 3. Breast lumpectomy. 4. Thyroidectomy. MEDICATIONS: Include: 1. Tylenol. 2. Aspirin. 3. Atorvastatin. 4. Docusate. 5. Gabapentin. 6. Levothyroxine. 7. Lisinopril. 8. Omeprazole. 9. Oxycodone. SOCIAL HISTORY: She lives alone, does not use tobacco or alcohol. REVIEW OF SYSTEMS: As per above history. PHYSICAL EXAMINATION: Temperature is 99, pulse 82, blood pressure 171/84. In general, she is a sle nder, elderly woman, actually appeared somewhat younger than stated age. She was sitting up in bed. She appears to be in no apparent distress. She is actually quite pleasant, alert and oriented. Her lungs include diminished breath sounds throughout, but they are clear to auscultation. Heart: Reg ular rate and rhythm without murmurs, rubs, or gallops. Abdomen is soft, but distended. She is tym panitic throughout. She has a well-healed low transverse incision without hernia. She had some jelena y mild distention tenderness. No rebound, guarding or peritoneal signs. I appreciate no hernias. DIAGNOSTIC STUDIES/LAB DATA: Include a white blood cell count of 8.7, which was on the day of admis henrry. She has been having some hyponatremia with a sodium of 129 this morning, BUN and creatinine o f 26 and 0.6. Abdominal films today, which appears to be more of a plate show some several loops of small bowel wo rrisome for small bowel obstruction. Yesterday's films have been read as a small bowel obstruction versus ileus without significant interval change. IMPRESSION: Abdominal pain, distention with persistent nausea, which was initially felt to be const ipation, not responding to oral cathartic as well as enemas. CT scan was reviewed, which did not sh ow any findings consistent with a small bowel obstruction and a nasogastric tube was inserted on adm ission and this did drain a minimal amount and was subsequently discontinued. Certainly may well represent the motility issue with her use of narcotics and age as well diet. However, prior to trying to use some stronger or more frequent cathartics and/or enemas or even cons idering a Gastrografin enema for therapeutic purposes, I think that it would be prudent to repeat th e CT scan of the abdomen and pelvis on both oral and IV contrast tomorrow to further evaluate the sm all bowel. She has had a hysterectomy in the past and although her symptoms do not completely add u p to a small bowel obstruction, I think we need to rule out any mechanical obstruction here prior to proceeding with more aggressive management of her constipation. Also of note is she did go into atrial fibrillation last night, was moved to a cardiac floor, but sh e seems to converting to sinus rhythm. I discussed the above with Solomon Clifford. CT scan will be ordered for tomorrow. She will continue with her clear liquids. We will follow her closely with you. [id number]/[facility] #: [id number]
[2017-05-25] MEDS: Morphine INJ* 4 MG/ML 1 ML CARPUJECT IV PRN ×2 (04:19→13:53)
[2017-05-25] MEDS: PROCHLORPERAZINE INJ 5 MG/ML 2 ML VIAL IV PRN (05:22)
[2017-05-25] MEDS: Ondansetron INJ* 2 MG/ML VIAL IV PRN (07:37)
[2017-05-25] MEDS ORDERED: Iohexol 300* (CONTRAST) 10 ML SDV IV ONE (08:26)
--- NOTE | 2017-05-25 09:04 | RAD ---
CLINICAL HISTORY: Persistent small bowel obstruction COMPARISON: May 20, 2017 TECHNIQUE: Multiple contiguous axial CT scans were obtained of the abdomen and pelvis after the administration of intravenous contrast. Coronal and sagittal multiplanar reformations are submitted for review. Oral contrast was administered. Delayed images were obtained through the abdomen and pelvis. FINDINGS: LUNG BASES: There are small bilateral pleural effusions. There is a 1.1 cm nodule left lower lobe best seen on axial image 1, incompletely evaluated on the current examination. LIVER: There are stable cysts of the left lobe of liver. BILE DUCTS: There is no intrahepatic or extrahepatic biliary dilatation. GALLBLADDER: Multiple gallstones are noted. There is no pericholecystic inflammatory change. PANCREAS: The pancreas is normal, without mass or ductal dilatation. SPLEEN: Normal in size and appearance. UPPER GI TRACT: Evaluation of the gastrointestinal tract is limited by incomplete gastric distention. There is a small sliding hiatal hernia. The stomach is distended. Contrast noted within the distal esophagus. SMALL BOWEL AND MESENTERY: There is diffuse distention and dilatation of the small bowel without transition to decompressed small bowel in the right lower quadrant COLON: There is diverticulosis of the distal colon. The colon is decompressed. ADRENALS: Normal bilaterally. KIDNEYS: The kidneys are normal in shape, size, contour, and axis. There is no hydronephrosis or nephrolithiasis. BLADDER: The bladder is collapsed and is not well evaluated PELVIC ORGANS: The pelvic organs are not visualized. AORTA: There is calcific atherosclerotic disease of the abdominal aorta and its branches, without aneurysmal dilatation IVC: Unremarkable LYMPH NODES: There is no lymphadenopathy by size criteria. ABDOMINAL WALL: There is no evidence for abdominal wall hernia. BONES AND SOFT TISSUES: Degenerative changes are noted of the spine. There is grade 1 anterolisthesis of L4 on L5. OTHER: None IMPRESSION: 1. DISTENDED AND DILATED SMALL BOWEL DIFFUSELY WITH A TRANSITION POINT IN THE RIGHT LOWER QUADRANT CONSISTENT WITH SMALL BOWEL OBSTRUCTION. 2. CHOLELITHIASIS. 3. ATHEROSCLEROSIS. 4. SMALL BILATERAL PLEURAL EFFUSIONS. 5. 1.1 CM LEFT LOWER LOBE LUNG NODULE, INCOMPLETELY EVALUATED ON THE CURRENT EXAMINATION. RECOMMEND CONSIDERATION OF DEDICATED IMAGING OF THE CHEST. 6. DIVERTICULOSIS
[2017-05-25] MEDS: Metoprolol Tartrate TAB* 25 MG PO SCH (09:30)
[2017-05-25] MEDS: Lisinopril TAB* 10 MG PO SCH (09:30)
[2017-05-25] MEDS: Polyethylene Glycol 3350* 17 GM PACKET PO SCH (09:31)
[2017-05-25] MEDS ORDERED: Al Hydrox/Mg Hydrox/Simet LIQ* 30 ML UDC PO PRN (09:39)
[2017-05-25] MEDS ORDERED: hydrALAZINE IV* 20 MG/ML VIAL IV SLOW PU PRN (10:36)
--- NOTE | 2017-05-25 10:44 | PN ---
Subjective Date of Service: 05/25/17 Interval History: Patient had some complaints of chest pain overnight. She was able to associate the pain with lying flat, turning on her side improved the pain. No palpitations, SOB. No changes on telemetry corresponding with times of pain. Objective Active Medications: Al Hydrox/Mg Hydrox/Simethicone (Maalox Plus*) 30 ml PO Q4H PRN PRN Reason: indigestion/chest pain Heparin Sodium (Porcine) (Heparin Vial(*)) 0 units IV .PER PROTOCOL SITA PRN Reason: Protocol Hydralazine HCl (Apresoline Iv*) 5 mg IV SLOW PU Q6H PRN PRN Reason: sBP>180mmHG Potassium Chloride/Sodium Chloride (Ns 0.9% W/ 40 Meq Kcl 1000 Ml*) 1,000 mls @ 75 mls/hr IV PER RATE [facility] Last Admin: 05/24/17 23:01 Dose: 75 mls/hr Morphine Sulfate (Morphine Inj (Syringe)*) 4 mg IV Q4H PRN PRN Reason: PAIN Last Admin: 05/25/17 04:19 Dose: 4 mg Ondansetron HCl (Zofran Inj*) 4 mg IV Q4H PRN PRN Reason: NAUSEA/VOMITING Last Admin: 05/25/17 07:37 Dose: 4 mg Pantoprazole Sodium (Protonix Iv*) 40 mg IV DAILY [facility] Prochlorperazine Edisylate (Compazine Inj*) 5 mg IV Q6H PRN PRN Reason: NAUSEA/VOMITING Last Admin: 05/25/17 05:22 Dose: 5 mg Vital Signs: Temp Pulse Resp BP Pulse Ox 98.0 F 85 24 175/90 92 05/25/17 07:24 05/25/17 07:24 05/25/17 07:28 05/25/17 07:24 05/25/17 07:24 Oxygen Devices in Use Now: None Appearance: Elderly female who appears lethargic, hugging an emesis basin. She is accompanied by her daughter Respiratory: Symmetrical Chest Expansion and Respiratory Effort, Clear to Auscultation Abdominal: - - distended, slightly firm, hypoactive bowel sounds Extremities: No Edema Skin: No Rash or Ulcers Neurological: Alert and Oriented x 3 Result Diagrams: 05/20/17 10:30 05/24/17 08:05 Additional Lab and Data: . Diagnostic Imaging: KUB / - moderately dilated loops of small bowel, decompressed stomach KUB 05/22 - some improvement in small bowel dilitation, stool present in large colon KUB 05/23 - persistently dilated loops of SB with moderate stool in large colon, little change since yesterday KUB 05/24 - no significant change CT abd/pelvis - distended stomach and SB with transition zone in RLQ. Constipation resolved Assess/Plan/Problems-Billing Assessment: This is an 87 yo female with HTN, hypothyroidism, h/o TIA and chronic back pain which she has been treating with increasing doses of opiates who presents with abd pain, n/v with evidence of partial SBO and constipation. - Patient Problems (1) SBO (small bowel obstruction) Comment: Initially thought to be related to constipation, but no improvement after several days Appreciate surgical consult CT this am shows persistent SB dilitation with transition in RLQ c/w SBO Will replace NG, she will likely require OR tomorrow (2) Pre-op exam Comment: RCRI score of 2 due to nature of surgery and h/o TIA placing her in a moderate risk category Recent echo shows mild diastolic dysfunction, no sig valvular disease Appears euvolemic No active medical problems No further optimization recommended pre-operatively No contraindication to planned procedure (3) Chest pain Comment: Low suspicion for ACS Trop mildly elevated to 0.05, but stable No ischemic changes on EKG CP is positional Suspect pain is due to esophagitis (4) Atrial fibrillation Comment: Brief episode of rapid afib Now converted to sinus and has maintained sinus for >24 hrs No plans to anticoagulate at this time due to brevity of afib Cont to monitor on tele today for episodes of paroxysmal afib (5) HTN (hypertension) Comment: Hypertensive again overnight Unable to tolerate oral antihypertensives Will treat with prn hydralazine while she is NPO (6) Hypothyroidism Comment: Continue levothyroxine. (7) History of TIA (transient ischemic attack) (8) Full code status (9) DVT prophylaxis Comment: SQ heparin Status and Disposition: Inpatient. Pending OR tomorrow
--- NOTE | 2017-05-25 10:55 | SURGPN ---
Subjective - Introduction -: Patient seen and examined with her daughter in room. Reports no improvement overnight. Still has diffuse intermittent abdominal pain, nausea and vomiting. Passed a little flatus this AM - Medications -: Active Medications Generic Name Dose Route Start Last Admin Trade Name Freq PRN Reason Stop Dose Admin Al Hydrox/Mg Hydrox/Simethicone 30 ml 05/25/17 09:39 Maalox Plus* PO Q4H PRN indigestion/chest pain Heparin Sodium (Porcine) 0 units 05/24/17 06:00 Heparin Vial(*) IV .PER PROTOCOL SITA Protocol Hydralazine HCl 5 mg 05/25/17 10:36 Apresoline Iv* IV SLOW PU Q6H PRN sBP>180mmHG Potassium Chloride/Sodium Chloride 1,000 mls @ 75 mls/hr 05/24/17 07:00 05/24 23:01 Ns 0.9% W/ 40 Meq Kcl 1000 Ml* IV 75 mls/hr PER RATE SITA Administration Morphine Sulfate 4 mg 05/20/17 16:24 05/25/17 04:19 Morphine Inj (Syringe)* IV 4 mg Q4H PRN Administration PAIN Ondansetron HCl 4 mg 05/20/17 16:20 05/25/17 07:37 Zofran Inj* IV 4 mg Q4H PRN Administration NAUSEA/VOMITING Pantoprazole Sodium 40 mg 05/25/17 10:00 Protonix Iv* IV DAILY [facility] Prochlorperazine Edisylate 5 mg 05/20/17 16:23 05/25/17 05:22 Compazine Inj* IV 5 mg Q6H PRN Administration NAUSEA/VOMITING Objective - Objective -: Awake and alert, comfortable in bed, in NAD - Intake and Output -: Intake & Output 05/23/17 05/24/17 05/25/17 05/26/17 06:59 06:59 06:59 06:59 Intake Total 4179 3144 2250 Output Total 1600 50 Balance 2579 3144 2200 Weight 119 lb 119 lb Intake: IV Fluids 3059 2139 1492 LR 1200 1097 NS 40 Kcl 1492 all fluids 1859 1042 IVPB 0 LR 0 Medicated IV 5 68 GEN - Diltiazem/Cardizem 5 68 Heparin 45 Oral 1120 1000 645 Output: Urine 1200 50 Emesis 400 Other: Estimated Void Medium Small # Bowel Movements 0 0 0 Estimated Stool Amount Small # Voids 2 0 1 Surgical Physical Exam - Comments -: Vitals reviewed, afebrile Lungs CTA bilat. Heart RRR, no murmurs Abdomen firm and distended. Mild diffuse tenderness. No guarding or rigidity. Bowel sounds are hypoactive Ext. without edema Labs notes Repeat CT this AM with persistent SBO, cholelithiasis and diverticulosis Assessment and Plan - Assessment -: Persistent small bowel obstruction in an 87 y/o female, not improving clinically - Plan Additional Comments: Will plan to insert NG tube this AM for decompression purposes. Keep NPO F/U AXR in AM 05/26 Discussed with patient and her daughter the possibility of surgical intervention for tomorrow 05/26 unless clinical improvement with NG tube overnight. The rationale, benefits and risks of an exploratory laparotomy were discussed briefly. Will address surgical intervention tomorrow pending on clinical and radiographic improvement.
[2017-05-25] MEDS: Pantoprazole IV* 40 MG IV SCH (10:58)
[2017-05-25 11:30] LABS: BUN/Creatinine Ratio 49.3 (8-20); EGFR African American 96.8 (>60); EGFR Non-African American 75.2 (>60); Potassium 4.5 mmol/L (3.5-5.0)
[2017-05-25 11:34] LABS: Troponin I 0.04 ng/mL (<0.04)
[2017-05-25] MEDS ORDERED: LORazepam TAB(*) 0.5 MG PO ONE (13:23)
[2017-05-25] MEDS ORDERED: LORazepam INJ* 2 MG/ML 1 ML VIAL IV PUSH ONE (13:30)
[2017-05-25] MEDS: NS 0.9% w/ 40 Meq KCL 1000 ML* 1,000 ML IV SCH (13:52)
--- NOTE | 2017-05-25 14:16 | RAD ---
HISTORY: Aspiration COMPARISONS: May 20, 2017 VIEWS: 1: frontal portable view of the chest at 1:43 PM FINDINGS: LINES AND TUBES: None. CARDIOMEDIASTINAL SILHOUETTE: The cardiomediastinal silhouette is normal for portable technique. PLEURA: The costophrenic angles are sharp. No pleural abnormalities are noted. LUNG PARENCHYMA: The lungs are clear. ABDOMEN: The upper abdomen is clear. There is no subphrenic gas. BONES AND SOFT TISSUES: No bone or soft tissue abnormalities are noted. IMPRESSION: NO ACTIVE CARDIOPULMONARY DISEASE.
--- NOTE | 2017-05-25 16:19 | RAD ---
INDICATION: Confirm nasogastric tube placement COMPARISON: May 25, 2017 TECHNIQUE: An AP portable view obtained at 1611 hours is submitted. FINDINGS: Bones/Soft Tissues: There are no acute bony findings. The nasogastric tube projects over the body of the stomach Cardiomediastinal: The cardiomediastinal silhouette is normal. Lungs: There are no infiltrates. There is mild hyperinflation. Pleura: There are no pleural effusions. Other: None IMPRESSION: THE NASOGASTRIC TUBE PROJECTS OVER THE BODY OF THE STOMACH
--- NOTE | 2017-05-25 16:44 | PN ---
Progress Note - Progress Note Date of Service: 05/25/17 SOAP: Subjective: She still complains of abdominal distension and some nausea Pain comes and goes. No flatus, had a small bowel movement Objective: Temp Pulse Resp BP Pulse Ox 97.5 F 94 24 172/90 95 05/25/17 15:34 05/25/17 15:34 05/25/17 15:34 05/25/17 15:34 05/25/17 16:00 PEX: Abd is soft and distended. Bowel sounds are present but hypoactive. She has some mild diffuse tenderness but no rebound or guarding. Assessment: CT reviewed with radiology. It appears consistent with a small bowel obstruction with proximal dilated small bowel and a transition point in the right lower quadrant with distal collapsed small bowel. The colon appears collapsed. Plan: I discussed with her and her daughter Dominique the findings on the CT scan and her clinical course. She has not improved with 4-5 days of supportive care and at this point despite her age and her reluctance to have surgery I feel that a laparotomy is indicated for treatment of her obstruction. She will not survive without surgery and I discussed this with them and she understands this fact. After our discussion, our plan is to have NGT placed (done) and observe overnight. If there is no improvement, we will proceed with laparotomy tomorrow. I discussed the procedure with her and the risks of, but not limited to, of bleeding, infection, abscess, bowel resection, ostomy, DVT, were all explained. They understand her elevated risk and agree to proceed.
[2017-05-26] MEDS: NS 0.9% w/ 40 Meq KCL 1000 ML* 1,000 ML IV SCH (04:52)
--- NOTE | 2017-05-26 08:43 | RAD ---
HISTORY: Follow-up small bowel obstruction COMPARISONS: CT dated May 25, 2017 VIEWS: Frontal supine and left lateral disc disease of the abdomen FINDINGS: BOWEL: Again noted is distention and dilatation of the small bowel. This is slightly decreased when compared to the previous examination. There is paucity of distal bowel gas. CALCULI: There are no abnormal calculi. BONES AND SOFT TISSUES: There is diffuse osteopenia. Degenerative changes are noted. OTHER FINDINGS: The lung bases are clear. There is no subphrenic gas. A gastric tube is noted with the tip in a prepyloric position. IMPRESSION: PERSISTENT SMALL BOWEL OBSTRUCTIVE PATTERN WITH SLIGHTLY DECREASED CALIBER OF THE SMALL BOWEL COMPARED TO THE PREVIOUS CT EXAMINATION
[2017-05-26 09:50] LABS: Hematocrit 37 % (35-47); Hemoglobin 12.6 g/dl (12.0-16.0); Mean Corpuscular HGB Conc 34 g/dl (31-36); Mean Corpuscular Hemoglobin 31 pg (27-31); Mean Corpuscular Volume 91 fL (80-97); Mean Platelet Volume 8 um3 (7.4-10.4); Red Blood Count 4.02 10^6/ul (4.0-5.4); Red Cell Distribution Width 14 % (10.5-15); White Blood Count 8.2 10^3/ul (3.5-10.8)
[2017-05-26 10:23] LABS: BUN/Creatinine Ratio 45.6 (8-20); Blood Urea Nitrogen 36 mg/dL (6-24); CO2 Carbon Dioxide 21 mmol/L (22-32); Calcium 8.8 mg/dL (8.6-10.3); Chloride 103 mmol/L (101-111); EGFR African American 88.3 (>60); EGFR Non-African American 68.7 (>60); Glucose 94 mg/dL (70-100); Magnesium 2.3 mg/dL (1.9-2.7); Sodium 134 mmol/L (133-145)
[2017-05-26 10:27] LABS: Anion Gap 10 mmol/L (2-11)
[2017-05-26] MEDS: Pantoprazole IV* 40 MG IV SCH (10:56)
[2017-05-26] MEDS ORDERED: Clindamycin 900 MG IVPREMIX(* 900 MG/50 ML SDV IV ONE (15:24)
--- NOTE | 2017-05-26 15:34 | PN ---
Progress Note - Progress Note Date of Service: 05/26/17 SOAP: Subjective: [Pt seen and examined. Chart reviewed and case d/w Dr. Segundo and hospitalist service. No flatus. No N/V., but NGT in place. Pt is thirsty Objective: Af Hr 100s normotensive NGT output >1500cc, non-bloody lungs clear. Abdo: soft/ mild distension, tender, no rebound No calf tenderness labs noted CT scan reviewed Assessment: SBO not resolved with conservative treatment Plan: Operating room for diagnostic laparoscopy, possible laparotomy. R/B/A discussed and patient agrees to proceed. She wanted her daughter to sign [facility] consent. HEr daughter was present as w discussed the procedure as well as the possible complications. These complications included abut were not limited to bleeding, infection, need for bowel resection, leak, hernia, prolonged hospitalization, CVA, MA, return to OR, and even . Pt and family agreed to proceed. Pre-op antibiotics Albert in OR
[2017-05-26] MEDS ORDERED: fentaNYL* 50 MCG/ML 2 ML VIAL (100 MCG VIAL) ONE ×2 (15:54→17:19)
[2017-05-26] MEDS ORDERED: Cisatracurium* 2 MG/ML MDV 5 ML ONE (15:54)
[2017-05-26] MEDS ORDERED: Lidocaine 2% PF * 5 ML VIAL ONE (16:49)
[2017-05-26] MEDS ORDERED: Propofol* 10 MG/ML 20 ML BTL IV PUSH ONE (16:49)
[2017-05-26] MEDS ORDERED: Dexamethasone IV* 4 MG/ML 1 ML (4 MG) ONE (16:49)
[2017-05-26] MEDS ORDERED: Succinylcholine* 20 MG/ML 10 ML VIAL ONE (16:49)
[2017-05-26] MEDS ORDERED: Phenylephrine IV* 40 MCG/ML 10 ML SYRINGE ONE (16:49)
[2017-05-26] MEDS ORDERED: Ondansetron INJ* 2 MG/ML VIAL ONE (16:49)
[2017-05-26] MEDS ORDERED: Bupivacaine 0.25% SDV* 30 ML ONE (17:12)
--- NOTE | 2017-05-26 17:58 | SURGPN ---
Brief Operative Note - Surgery Procedures: Procedures Pre-OP Diagnoses: SBO Post-op Diagnosis: SBO Procedure: Diagnostic laparoscopy, adhesiolysis Surgeon: Dinh Asst: HEENA Horowitz Anethesia: SU Stoner EBL: minimal IVF: 1000cc LR Specimen: none Drains: none Findings Adhesions, SBO Complications: None
--- NOTE | 2017-05-26 18:40 | PN ---
Subjective Date of Service: 05/26/17 Interval History: Patient seen and examined at bedside in the PACU. Pt is nonverbal at this time and sleeping, hard to arouse. Tele: Sinus tach, rate 100s. Family History: Unchanged from Admission Social History: Unchanged from Admission Past Medical History: Unchanged from Admission Objective Active Medications: Al Hydrox/Mg Hydrox/Simethicone (Maalox Plus*) 30 ml PO Q4H PRN Reason: indigestion/chest pain Hydralazine HCl (Apresoline Iv*) 5 mg IV SLOW PU Q6H PRN Reason: sBP>180mmHG Potassium Chloride/Sodium Chloride (Ns 0.9% W/ 40 Meq Kcl 1000 Ml*) 1,000 mls @ 75 mls/hr IV PER RATE SITA Morphine Sulfate (Morphine Inj (Syringe)*) 4 mg IV Q4H PRN Reason: PAIN Ondansetron HCl (Zofran Inj*) 4 mg IV Q4H PRN Reason: NAUSEA/VOMITING Pantoprazole Sodium (Protonix Iv*) 40 mg IV DAILY [facility] Prochlorperazine Edisylate (Compazine Inj*) 5 mg IV Q6H PRN Reason: NAUSEA/ VOMITING Vital Signs 05/25/17 05/25/17 05/25/17 19:39 20:00 23:04 Temperature 99.1 F Pulse Rate 95 Respiratory 24 22 Rate Blood Pressure 141/73 (mmHg) O2 Sat by Pulse 96 96 Oximetry 05/25/17 05/26/17 05/26/17 23:15 00:00 02:42 Temperature 99.8 F 98.8 F Pulse Rate 96 97 Respiratory 16 16 Rate Blood Pressure 158/72 170/83 (mmHg) O2 Sat by Pulse 95 95 95 Oximetry 05/26/17 05/26/17 05/26/17 07:55 08:00 10:08 Temperature 98.5 F Pulse Rate 102 Respiratory 16 16 Rate Blood Pressure 169/82 (mmHg) O2 Sat by Pulse 97 97 95 Oximetry 05/26/17 05/26/17 05/26/17 12:12 14:56 18:10 Temperature 99.1 F 98.5 F 97.2 F Pulse Rate 109 114 101 Respiratory 20 20 20 Rate Blood Pressure 191/93 182/94 149/72 (mmHg) O2 Sat by Pulse 99 95 100 Oximetry 05/26/17 05/26/1717 18:15 18:20 18:25 Temperature Pulse Rate 105 105 101 Respiratory 20 20 20 Rate Blood Pressure 147/70 149/70 150/73 (mmHg) O2 Sat by Pulse 100 100 97 Oximetry Oxygen Devices in Use Now: None Appearance: NAD, laying in bed Respiratory: Symmetrical Chest Expansion and Respiratory Effort, Clear to Auscultation Cardiovascular: NL Sounds; No Murmurs; No JVD, RRR - , tachy Abdominal: NL Sounds; No Tenderness; No Distention Extremities: No Edema Skin: No Rash or Ulcers Lines/Tubes/Other Access: Clean, Dry and Intact Peripheral IV - Right foot, site benign, Clean, Dry and Intact Central Line - Right groin, site benign, Clean, Dry and Intact Other Access - NG tube to LWS Result Diagrams: 05/26/17 09:31 05/26/17 13:29 Additional Lab and Data: . Diagnostic Imaging: KUB 9/8 - moderately dilated loops of small bowel, decompressed stomach KUB 9/ - some improvement in small bowel dilitation, stool present in large colon KUB 9/10 - persistently dilated loops of SB with moderate stool in large colon, little change since yesterday KUB /11 - no significant change CT abd/pelvis - distended stomach and SB with transition zone in RLQ. Constipation resolved Assess/Plan/Problems-Billing Assessment: Ms. Ravi is an 87 yo female with HTN, hypothyroidism, h/o TIA and chronic back pain which she has been treating with increasing doses of opiates who presents with abd pain, n/v with evidence of partial SBO and constipation. - Patient Problems (1) SBO (small bowel obstruction) Code(s): K56.69 - OTHER INTESTINAL OBSTRUCTION SNOMED Code(s): 564079653 Comment: - s/p EXP lap and FRANSISCO, POD - Initially thought to be related to constipation, but no improvement after several days - Appreciate surgical consult - CT 05/25 shows persistent SB dilitation with transition in RLQ c/w SBO - Continue NG and NPO (2) Atrial fibrillation Code(s): I48.91 - UNSPECIFIED ATRIAL FIBRILLATION SNOMED Code(s): 38139238 Comment: - Brief episode of rapid afib - Now converted to sinus and has maintained sinus for >48 hrs - No plans to anticoagulate at this time due to brevity of afib (3) Chest pain Code(s): R07.9 - CHEST PAIN, UNSPECIFIED SNOMED Code(s): 23930453 Comment: - Low suspicion for ACS - Trop mildly elevated to 0.05, but stable - No ischemic changes on EKG - Suspect pain is due to esophagitis (4) HTN (hypertension) Code(s): I10 - ESSENTIAL (PRIMARY) HYPERTENSION SNOMED Code(s): 90062539 Comment: - Hypertensive at times - Unable to tolerate oral antihypertensives - Will treat with prn hydralazine while she is NPO (5) Hyponatremia Code(s): E87.1 - HYPO-OSMOLALITY AND HYPONATREMIA SNOMED Code(s): 06940143 Comment: - Resolved (6) History of TIA (transient ischemic attack) (7) Hypothyroidism Code(s): E03.9 - HYPOTHYROIDISM, UNSPECIFIED SNOMED Code(s): 67217405 Comment: - TSH 1.11 on 05/10/17 - Resume levothyroxine when able to take PO (8) DVT prophylaxis Code(s): DFW7280 - SNOMED Code(s): 910091341 Comment: - SQ heparin (9) Full code status Code(s): Z78.9 - OTHER SPECIFIED HEALTH STATUS SNOMED Code(s): 858524298 Status and Disposition: Inpatient. Plan to discharge to home when medically stable.
[2017-05-26] MEDS ORDERED: Morphine INJ* 4 MG/ML 1 ML CARPUJECT IV PRN (20:10)
[2017-05-27] MEDS: Pantoprazole IV* 40 MG IV SCH (10:55)
--- NOTE | 2017-05-27 11:36 | PN ---
Progress Note - Progress Note Date of Service: 05/27/17 Note: Surgery Progress: S: POD #1. Doing well. Denies pain, N/V. Had BM this a.m. Would like to try diet. OOB to BR this a.m. Current Medications Al Hydrox/Mg Hydrox/Simethicone (Maalox Plus*) 30 ml PO Q4H PRN PRN Reason: indigestion/chest pain Hydralazine HCl (Apresoline Iv*) 5 mg IV SLOW PU Q6H PRN PRN Reason: sBP>180mmHG Last Admin: 05/26/17 13:07 Dose: 5 mg Lactated Ringer's (Lactated Ringers 1000 Ml Bag*) 1,000 mls @ 110 mls/hr IV PER RATE [facility] Stop: 05/27/17 20:10 Last Admin: 05/27/17 06:42 Dose: 110 mls/hr Morphine Sulfate (Morphine Inj (Syringe)*) 4 mg IV Q4H PRN PRN Reason: PAIN Last Admin: 05/25/17 13:53 Dose: 4 mg Morphine Sulfate (Morphine Inj (Syringe)*) 2 mg IV Q2H PRN PRN Reason: PAIN Ondansetron HCl (Zofran Inj*) 4 mg IV Q4H PRN PRN Reason: NAUSEA/VOMITING Last Admin: 05/25/17 07:37 Dose: 4 mg Pantoprazole Sodium (Protonix Iv*) 40 mg IV DAILY [facility] Last Admin: 05/27/17 10:55 Dose: 40 mg Prochlorperazine Edisylate (Compazine Inj*) 5 mg IV Q6H PRN PRN Reason: NAUSEA/VOMITING Last Admin: 05/25/17 05:22 Dose: 5 mg O: Vital Signs - 8 hr 05/27/17 05/27/17 07:28 09:30 Temperature 99.5 F Pulse Rate 103 Respiratory 16 16 Rate Blood Pressure 154/75 (mmHg) O2 Sat by Pulse 93 Oximetry Intake and Output Last 24 Hours 05/25/17 05/26/17 05/27/17 05/28/17 06:59 06:59 06:59 06:59 Intake Total 2250 539 2730 Output Total 50 3100 2125 Balance 2200 -2561 605 Weight 119 lb 119 lb Intake: IV Fluids 3575 908 5410 LR 2580 NS 40 Kcl 1492 539 NS 50ML, Cefazolin 2G 50 Medicated IV 68 GEN - Diltiazem/Cardizem 68 Heparin 45 Oral 645 0 100 Output: NG Tube Drainage Amount 2500 425 Urine 50 600 300 Albert 1400 Other: Estimated Void Small Date of Last Bowel 05/27/17 Movement # Bowel Movements 0 0 0 1 Estimated Stool Amount Medium # Voids 1 0 PE: Gen: appears pleasant and comfortable Heart: irreg irreg; sl tachy Lungs: clear; no rales Abd: +BS; lap sites ok; soft; mild, mostly L-sided tenderness. A/P: s/p laparoscopic FRANSISCO for SBO, improving. Will start clears and adv as paulina. Ambulate. Poss d/c 05/28?
[2017-05-27] MEDS ORDERED: oxyCODONE TAB* 5 MG TAB PO PRN (12:12)
--- NOTE | 2017-05-27 12:42 | OP ---
CC: Mamie Caban MD * DATE OF OPERATION: 05/26/17 - ROOM #336 DATE OF : 28 SURGEON: Khai Tao MD REGISTERED NURSE FIRST ASSISTANT: HEENA Lee ANESTHESIOLOGIST: Dr. Stoner. ANESTHESIA: General. PRE-OP DIAGNOSIS: Small bowel obstruction. POST-OP DIAGNOSIS: Small bowel obstruction. OPERATIVE PROCEDURE: Laparoscopic lysis of adhesions. SPECIMENS: None. ESTIMATED BLOOD LOSS: Minimal blood loss. FLUIDS: 1 L crystalloid fluid given. DRAINS: None. COUNT: Lap, pad count and instrument count correct at the end of the procedure. INDICATIONS: I discussed the case with the patient and the patient's family members, consent was signed. We discussed the plan for a diagnostic laparoscopy , possible laparotomy for this diagnosis of small bowel obstruction. Consent was signed, the patient was marked. DESCRIPTION OF PROCEDURE: She was taken back to the operating room, placed on the operating room table in a supine position. It was noted that the patient's peripheral IV was not functioning and another peripheral IV was placed. She was then given general anesthesia, preoperative antibiotics. She had a sequential device placed on her left lower leg because the peripheral IV was placed in her right foot. The patient did show evidence of some low blood pressure and I was concerned for access and for this reason I placed a triple lumen catheter in her right femoral vein. The area was prepped sterilely and with sterile technique the vein was accessed, a wire inserted without difficulty and a triple lumen catheter inserted and sutured to the skin. The distal port flushed, but did not aspirate blood. The other two ports aspirated blood and flushed with ease. Sterile dressing was applied to this site. Next, the patient's abdomen was prepped and draped in a standard surgical fashion and a time-out was performed. A left upper quadrant incision was made at the Murray's point, this was deepened down to the anterior fascia which was elevated and a Veress needle inserted into the abdominal cavity which was then allowed to insufflate to a pressure of 15 mmHg. The patient tolerated the insufflation well. A 5-mm trocar was then inserted through this site and a laparoscope was inserted. There was certainly dilated valve and free fluid. There appeared to be no blood and no evidence of injury from the trocar insertion with the Veress needle. There was adhesion of the omentum to the anterior abdominal wall and additional trocars were then placed in the following position; a 5 mm in the left lower quadrant and a 5 mm in the suprapubic area. Adhesions along the anterior abdominal wall were taken along the midline and extended towards the right lower quadrant freeing up omentum to identify what appeared to be a dilated and violaceous portion of the small bowel. We analyzed this and after the anterior abdominal adhesions were taken down, we reviewed this small bowel portion and could see a thick fibrous band extending from the distal small bowel terminal ileum site to the adnexal region. This was taken down with sharp dissection and at this point we were able to see clearly the mesentery of the small bowel loop that appeared to be the point of obstruction. Next, going back to the terminal ileum and identifying the collapsed small bowel , we ran the bowel retrograde to this lesion which then was able to untwist and already peristalsis was appreciated both proximal to this and at the site and the collapsed bowel filled nicely. Next, we suctioned out a fair amount of dark-colored ascites and we did not run the bowel in its entirety as it was quite dilated and was a concern for injury. We did run the bowel proximal from the obvious lesion approximately 2 feet. This was distended and we did this carefully without causing injury and at this point we stopped, felt comfortable with our surgery and allowed the abdomen to collapse. Trocars were removed under direct vision. All three skin incisions were reapproximated with skin nicky. Sterile dressing was applied, the patient tolerated the procedure well, was woken up in the OR and transferred to the PACU in stable condition. [id number]/[facility] #: [id number] TJ
[2017-05-27] MEDS: Gabapentin CAP(*) 300 MG PO SCH ×2 (14:11→18:14)
[2017-05-27] MEDS: Heparin VIAL(*) 5000 UNITS/ML VIAL (FIVE THOUSAND) SUBCUT SCH ×2 (14:12→22:06)
--- NOTE | 2017-05-27 18:51 | PN ---
Subjective Date of Service: 05/27/17 Interval History: Patient seen and examined at bedside. Pt states that her pain is controlled. She reports that she feels generally weak and "out of it" since surgery. Denies fever, chills, shortness of breath, chest discomfort, N/V/D. NG tube was removed today. Family History: Unchanged from Admission Social History: Unchanged from Admission Past Medical History: Unchanged from Admission Objective Active Medications: Al Hydrox/Mg Hydrox/Simethicone (Maalox Plus*) 30 ml PO Q4H PRN Reason: indigestion/chest pain Aspirin (Aspirin Low Dose Tab*) 81 mg PO DAILY [facility] Docusate Sodium (Colace Cap*) 100 mg PO DAILY [facility] Gabapentin (Neurontin Cap(*)) 300 mg PO QAM [facility] Gabapentin (Neurontin Cap(*)) 600 mg PO QPM [facility] Heparin Sodium (Porcine) (Heparin Vial(*)) 5,000 units SUBCUT Q8HR [facility] Hydralazine HCl (Apresoline Iv*) 5 mg IV SLOW PU Q6H PRN Reason: sBP>180mmHG Lactated Ringer's (Lactated Ringers 1000 Ml Bag*) 1,000 mls @ 110 mls/hr IV PER RATE [facility] Stop: 05/27/17 20:10 Levothyroxine Sodium (Synthroid Tab*) 50 mcg PO 0600 [facility] Morphine Sulfate (Morphine Inj (Syringe)*) 2 mg IV Q2H PRN Reason: PAIN Omeprazole (Prilosec Cap*) 20 mg PO DAILY [facility] Ondansetron HCl (Zofran Inj*) 4 mg IV Q4H PRN Reason: NAUSEA/VOMITING Oxycodone HCl (Roxycodone Tab*) 5 mg PO TID PRN Reason: PAIN Prochlorperazine Edisylate (Compazine Inj*) 5 mg IV Q6H PRN Reason: NAUSEA/ VOMITING Vital Signs 05/26/17 05/26/17 05/26/17 19:31 19:35 20:48 Temperature 97.5 F 97.5 F 99.2 F Pulse Rate 100 100 100 Respiratory 20 20 21 Rate Blood Pressure 154/74 154/74 153/67 (mmHg) O2 Sat by Pulse 100 100 100 Oximetry 05/26/17 05/26/17 05/26/17 21:35 22:08 23:31 Temperature 98.6 F Pulse Rate 102 106 Respiratory 23 22 17 Rate Blood Pressure 165/72 158/72 (mmHg) O2 Sat by Pulse 98 98 Oximetry 05/26/17 05/27/17 05/27/17 23:42 01:27 02:17 Temperature 98.0 F 97.8 F Pulse Rate 110 Respiratory 18 Rate Blood Pressure 168/73 (mmHg) O2 Sat by Pulse 99 99 Oximetry 05/27/17 05/27/17 05/27/17 03:11 07:28 09:30 Temperature 98.9 F 99.5 F Pulse Rate 108 103 Respiratory 20 16 16 Rate Blood Pressure 161/82 154/75 (mmHg) O2 Sat by Pulse 99 93 Oximetry 05/27/17 05/27/17 05/27/17 11:33 14:11 15:31 Temperature 98.9 F 98.9 F Pulse Rate 105 104 Respiratory 16 16 16 Rate Blood Pressure 175/76 168/73 (mmHg) O2 Sat by Pulse 96 96 Oximetry 05/27/17 05/27/17 16:00 18:14 Temperature Pulse Rate Respiratory 16 Rate Blood Pressure (mmHg) O2 Sat by Pulse 96 Oximetry Oxygen Devices in Use Now: None Appearance: NAD, laying in bed Ears/Nose/Mouth/Throat: Mucous Membranes Moist Respiratory: Symmetrical Chest Expansion and Respiratory Effort, Clear to Auscultation Cardiovascular: NL Sounds; No Murmurs; No JVD, RRR Abdominal: NL Sounds; No Tenderness; No Distention Extremities: No Edema Skin: - - 3 lap sites to ABD with DSGs clean, dry and intact Lines/Tubes/Other Access: Clean, Dry and Intact Central Line - Right groin, site benign Nutrition: Taking PO's - ice chips Result Diagrams: 05/26/17 09:31 05/26/17 13:29 Additional Lab and Data: . Diagnostic Imaging: KUB 9/ - moderately dilated loops of small bowel, decompressed stomach KUB 05/22 - some improvement in small bowel dilitation, stool present in large colon KUB 05/23 - persistently dilated loops of SB with moderate stool in large colon, little change since yesterday KUB 05/24 - no significant change CT abd/pelvis - distended stomach and SB with transition zone in RLQ. Constipation resolved Assess/Plan/Problems-Billing Assessment: Ms. Ravi is an 87 yo female with HTN, hypothyroidism, h/o TIA and chronic back pain which she has been treating with increasing doses of opiates who presents with abd pain, n/v with evidence of partial SBO and constipation. - Patient Problems (1) SBO (small bowel obstruction) Code(s): K56.69 - OTHER INTESTINAL OBSTRUCTION SNOMED Code(s): 216509560 Comment: - s/p EXP lap and FRANSISCO, POD #1 - Initially thought to be related to constipation, but no improvement after several days - Appreciate surgical consult - CT 05/25 shows persistent SB dilitation with transition in RLQ c/w SBO - Continue ice chips (2) Atrial fibrillation Code(s): I48.91 - UNSPECIFIED ATRIAL FIBRILLATION SNOMED Code(s): 74947591 Comment: - Brief episode of rapid afib - Now converted to sinus and has maintained sinus for >48 hrs - No plans to anticoagulate at this time due to brevity of afib (3) Chest pain Code(s): R07.9 - CHEST PAIN, UNSPECIFIED SNOMED Code(s): 91229504 Comment: - Low suspicion for ACS - Trop mildly elevated to 0.05, but stable - No ischemic changes on EKG - Suspect pain is due to esophagitis (4) HTN (hypertension) Code(s): I10 - ESSENTIAL (PRIMARY) HYPERTENSION SNOMED Code(s): 15779589 Comment: - Hypertensive at times, improving - Unable to tolerate oral antihypertensives - Will treat with prn hydralazine while she is NPO (5) Hyponatremia Code(s): E87.1 - HYPO-OSMOLALITY AND HYPONATREMIA SNOMED Code(s): 26847043 Comment: - Resolved (6) History of TIA (transient ischemic attack) (7) Hypothyroidism Code(s): E03.9 - HYPOTHYROIDISM, UNSPECIFIED SNOMED Code(s): 35603104 Comment: - TSH 1.11 on 05/10/17 - Resume levothyroxine when able to take PO (8) DVT prophylaxis Code(s): BLS9316 - SNOMED Code(s): 058087209 Comment: - SQ heparin (9) Full code status Code(s): Z78.9 - OTHER SPECIFIED HEALTH STATUS SNOMED Code(s): 427119537 Status and Disposition: Inpatient. Plan to discharge to home when medically stable.
[2017-05-28] MEDS: Heparin VIAL(*) 5000 UNITS/ML VIAL (FIVE THOUSAND) SUBCUT SCH ×3 (04:55→22:06)
[2017-05-28] MEDS: Levothyroxine TAB* 50 MCG TAB PO SCH (04:55)
[2017-05-28 05:21] LABS: Hematocrit 37 % (35-47); Hemoglobin 12.4 g/dl (12.0-16.0); Mean Corpuscular HGB Conc 34 g/dl (31-36); Mean Corpuscular Hemoglobin 31 pg (27-31); Mean Corpuscular Volume 90 fL (80-97); Mean Platelet Volume 8 um3 (7.4-10.4); Red Blood Count 4.06 10^6/ul (4.0-5.4); Red Cell Distribution Width 14 % (10.5-15)
[2017-05-28 05:37] LABS: Add Diff/Slide Review? Slide Review Added; Comments Flag Yes
[2017-05-28 05:39] LABS: Calcium 8.2 mg/dL (8.6-10.3); EGFR African American 123.7 (>60); EGFR Non-African American 96.2 (>60); Potassium 3.2 mmol/L (3.5-5.0)
[2017-05-28 08:30] LABS: Magnesium 1.5 mg/dL (1.9-2.7)
--- NOTE | 2017-05-28 09:18 | PN ---
Progress Note - Progress Note Date of Service: 05/28/17 SOAP: Subjective: Pt seen and examined. No flatus, pos BM, no nausea, no hiccoughs. Positive appetite Objective: af vss UO good lungs clear abdo: soft, less distended, NT dressings intact, no redness no calf tenderness Assessment: POD laparoscopic adhesiolysis, improving Plan: advance diet d/c IVF discharge planning [facility] to cover me until 05/31
[2017-05-28] MEDS: Gabapentin CAP(*) 300 MG PO SCH ×2 (09:28→17:59)
[2017-05-28] MEDS: Aspirin Low Dose CHEW TAB* 81 MG PO SCH (09:28)
[2017-05-28] MEDS: Omeprazole CAP* 20 MG PO SCH (09:28)
[2017-05-28] MEDS: Docusate CAP* 100 MG PO SCH (09:28)
[2017-05-28] MEDS: KCL 20 MEQ/100 ML IVPREMIX* 20 MEQ/100 ML BAG IV SCH ×2 (10:22→12:41)
[2017-05-28] MEDS ORDERED: Potassium Chlor TAB* 20 MEQ TAB.ER PO SCH (12:00)
[2017-05-28] MEDS ORDERED: Morphine INJ* 2 MG/ML 1 ML SYRINGE (TWO MG - NEW SYRINGE VERSION) IV PRN (15:22)
[2017-05-28] MEDS ORDERED: Magnesium Sulf 4 GM/100 ML IV* 4,000 MG/100 ML BAG IVPB ONE (15:51)
--- NOTE | 2017-05-28 15:52 | PN ---
Subjective Date of Service: 05/28/17 Interval History: Patient seen and examined at bedside. Pt states that she is feeling well but is tired. Denies fever, chills, shortness of breath, chest discomfort, N/V/D. Pt states that she has moved her bowels and is passing gas. Family History: Unchanged from Admission Social History: Unchanged from Admission Past Medical History: Unchanged from Admission Objective Active Medications: Al Hydrox/Mg Hydrox/Simethicone (Maalox Plus*) 30 ml PO Q4H PRN Reason: indigestion/chest pain Aspirin (Aspirin Low Dose Tab*) 81 mg PO DAILY [facility] Docusate Sodium (Colace Cap*) 100 mg PO DAILY [facility] Gabapentin (Neurontin Cap(*)) 300 mg PO QAM [facility] Gabapentin (Neurontin Cap(*)) 600 mg PO QPM [facility] Heparin Sodium (Porcine) (Heparin Vial(*)) 5,000 units SUBCUT Q8HR [facility] Hydralazine HCl (Apresoline Iv*) 5 mg IV SLOW PU Q6H PRN Reason: sBP>180mmHG Lactated Ringer's (Lactated Ringers 1000 Ml Bag*) 1,000 mls @ 110 mls/hr IV PER RATE [facility] Levothyroxine Sodium (Synthroid Tab*) 50 mcg PO 0600 [facility] Morphine Sulfate (Morphine Inj (Syringe)*) 2 mg IV Q2H PRN Reason: PAIN Omeprazole (Prilosec Cap*) 20 mg PO DAILY [facility] Ondansetron HCl (Zofran Inj*) 4 mg IV Q4H PRN Reason: NAUSEA/VOMITING Oxycodone HCl (Roxycodone Tab*) 5 mg PO TID PRN Reason: PAIN Potassium Chloride (Klor Con Er Tab*) 20 meq PO Q4H [facility] Stop: 05/28/17 16:01 Prochlorperazine Edisylate (Compazine Inj*) 5 mg IV Q6H PRN Reason: NAUSEA/ VOMITING Vital Signs 05/27/17 05/27/17 05/27/17 16:00 18:14 20:00 Temperature Pulse Rate Respiratory 16 18 Rate Blood Pressure (mmHg) O2 Sat by Pulse 96 Oximetry 05/27/17 05/27/17 05/27/17 20:14 20:17 21:56 Temperature 98.4 F Pulse Rate 103 100 Respiratory 18 22 Rate Blood Pressure 193/94 176/81 (mmHg) O2 Sat by Pulse 97 95 Oximetry 05/28/17 05/28/17 05/28/17 00:07 01:29 02:02 Temperature 98.8 F Pulse Rate 97 Respiratory 18 18 Rate Blood Pressure 170/83 (mmHg) O2 Sat by Pulse 94 94 Oximetry 05/28/17 05/28/17 05/28/17 03:22 03:29 07:44 Temperature 98.5 F 99.1 F Pulse Rate 96 93 Respiratory 18 18 18 Rate Blood Pressure 179/89 162/82 (mmHg) O2 Sat by Pulse 95 98 Oximetry 05/28/17 11:42 Temperature 98.4 F Pulse Rate 89 Respiratory 16 Rate Blood Pressure 175/87 (mmHg) O2 Sat by Pulse 95 Oximetry Oxygen Devices in Use Now: None Appearance: NAD, laying in bed Ears/Nose/Mouth/Throat: Mucous Membranes Moist Respiratory: Symmetrical Chest Expansion and Respiratory Effort, Clear to Auscultation Cardiovascular: NL Sounds; No Murmurs; No JVD, RRR Abdominal: NL Sounds; No Tenderness; No Distention Extremities: No Edema Skin: No Rash or Ulcers Neurological: Alert and Oriented x 3, NL Muscle Strength and Tone Lines/Tubes/Other Access: Clean, Dry and Intact Central Line - right femoral, site benign Nutrition: Taking PO's - clear liquids Result Diagrams: 05/28/17 05:05 05/28/17 05:05 Diagnostic Imaging: KUB 9/8 - moderately dilated loops of small bowel, decompressed stomach KUB 9/ - some improvement in small bowel dilitation, stool present in large colon KUB 9/ - persistently dilated loops of SB with moderate stool in large colon, little change since yesterday KUB 05/24 - no significant change CT abd/pelvis - distended stomach and SB with transition zone in RLQ. Constipation resolved Assess/Plan/Problems-Billing Assessment: Ms. Ravi is an 87 yo female with HTN, hypothyroidism, h/o TIA and chronic back pain which she has been treating with increasing doses of opiates who presents with abd pain, n/v with evidence of partial SBO and constipation. - Patient Problems (1) SBO (small bowel obstruction) Code(s): K56.69 - OTHER INTESTINAL OBSTRUCTION SNOMED Code(s): 250251604 Comment: - s/p EXP lap and FRANSISCO, POD #2 - Initially thought to be related to constipation, but no improvement after several days - Appreciate surgical consult - CT 05/25 shows persistent SB dilitation with transition in RLQ c/w SBO - Now on clear liquids (2) Electrolyte abnormality Code(s): E87.8 - OTH DISORDERS OF ELECTROLYTE AND FLUID BALANCE, NEC SNOMED Code(s): 697624404 Comment: - Hypokalemia - Received replacment today and will recheck labs in the AM - Hypomagnesemia - Received replacement today and will recheck labs in the AM (3) Atrial fibrillation Code(s): I48.91 - UNSPECIFIED ATRIAL FIBRILLATION SNOMED Code(s): 21983867 Comment: - Brief episode of rapid afib - Converted to sinus - No plans to anticoagulate at this time due to brief period of afib (4) Chest pain Code(s): R07.9 - CHEST PAIN, UNSPECIFIED SNOMED Code(s): 53753293 Comment: - Low suspicion for ACS - Trop mildly elevated to 0.05, but stable - No ischemic changes on EKG - Suspect pain is due to esophagitis (5) HTN (hypertension) Code(s): I10 - ESSENTIAL (PRIMARY) HYPERTENSION SNOMED Code(s): 46019285 Comment: - Hypertensive at times, improving - Resume home Lisinopril and continue prn hydralazine (6) Hyponatremia Code(s): E87.1 - HYPO-OSMOLALITY AND HYPONATREMIA SNOMED Code(s): 32529828 Comment: - Resolved (7) History of TIA (transient ischemic attack) (8) Hypothyroidism Code(s): E03.9 - HYPOTHYROIDISM, UNSPECIFIED SNOMED Code(s): 07071328 Comment: - TSH 1.11 on 05/10/17 - Resume levothyroxine (9) DVT prophylaxis Code(s): CTP3971 - SNOMED Code(s): 284419676 Comment: - SQ heparin (10) Full code status Code(s): Z78.9 - OTHER SPECIFIED HEALTH STATUS SNOMED Code(s): 287645860 Status and Disposition: Inpatient. Plan to discharge to home when medically stable, possibly in 2-3 days.
[2017-05-28] MEDS ORDERED: Potassium Chloride LIQUID* 20 MEQ PACKET PO ONE (16:00)
[2017-05-28] MEDS: Atorvastatin* 10 MG TAB PO SCH (17:59)
[2017-05-29] MEDS: Heparin VIAL(*) 5000 UNITS/ML VIAL (FIVE THOUSAND) SUBCUT SCH ×3 (06:24→21:56)
[2017-05-29] MEDS: Levothyroxine TAB* 50 MCG TAB PO SCH (06:24)
[2017-05-29 07:13] LABS: BUN/Creatinine Ratio 12.3 (8-20); Calcium 8.1 mg/dL (8.6-10.3); EGFR African American 128.7 (>60); EGFR Non-African American 100.1 (>60); Magnesium 2.4 mg/dL (1.9-2.7); Potassium 3.2 mmol/L (3.5-5.0)
--- NOTE | 2017-05-29 07:16 | PN ---
Progress Note - Progress Note Date of Service: 05/29/17 Note: Surgery Ms. Ravi c/o not being able to eat because the "food is so awful". She has passed flatus and had BM. She denies pain. Vital Signs 05/28/17 05/28/17 05/28/17 07:44 08:00 09:28 Temperature 99.1 F Pulse Rate 93 Respiratory 18 17 16 Rate Blood Pressure 162/82 (mmHg) O2 Sat by Pulse 98 Oximetry 05/28/17 05/28/17 05/28/17 11:28 11:42 15:29 Temperature 98.4 F 97.9 F Pulse Rate 89 104 Respiratory 16 16 16 Rate Blood Pressure 175/87 174/85 (mmHg) O2 Sat by Pulse 95 96 Oximetry 05/28/17 05/28/17 05/28/17 17:59 19:56 19:59 Temperature 98.0 F Pulse Rate 97 Respiratory 16 16 17 Rate Blood Pressure 165/79 (mmHg) O2 Sat by Pulse 94 Oximetry 05/28/17 05/28/17 05/29/17 20:00 23:29 00:00 Temperature 98.3 F Pulse Rate 88 Respiratory 17 Rate Blood Pressure 132/65 (mmHg) O2 Sat by Pulse 96 96 Oximetry 05/29/17 03:55 Temperature 97.8 F Pulse Rate 89 Respiratory 20 Rate Blood Pressure 145/79 (mmHg) O2 Sat by Pulse 94 Oximetry Abd: protruberant, soft, non-tender; dressings intact. Groin: right IV site has some blood on dressing. Intake & Output 05/28/17 05/29/17 05/29/17 22:59 06:59 14:59 Intake Total 510 Output Total 300 450 Balance 210 -450 Intake: Oral 510 Output: Urine 300 450 Other: Estimated Void Medium # Voids 1 Laboratory Results - last 24 hr 05/28/17 05/29/17 05:05 06:35 Sodium 132 L Potassium 3.2 L Chloride 94 L Carbon Dioxide 33 H Anion Gap 5 BUN 7 Creatinine 0.57 Est GFR ( Amer) 128.7 Est GFR (Non-Af Amer) 100.1 BUN/Creatinine Ratio 12.3 Glucose 130 H Calcium 8.1 L Magnesium 1.5 L 2.4 A/P: POD#3 s/p lap FRANSISCO, doing well. Okay to have food brought from home.
[2017-05-29] MEDS: Aspirin Low Dose CHEW TAB* 81 MG PO SCH (08:48)
[2017-05-29] MEDS: Lisinopril TAB* 10 MG PO SCH (08:48)
[2017-05-29] MEDS: Omeprazole CAP* 20 MG PO SCH (08:49)
[2017-05-29] MEDS: Docusate CAP* 100 MG PO SCH (08:49)
[2017-05-29] MEDS: Gabapentin CAP(*) 300 MG PO SCH ×2 (08:49→17:41)
--- NOTE | 2017-05-29 10:34 | PN ---
Subjective Date of Service: 05/29/17 Interval History: Patient without complaints. 3 BMs and passed gas. Tolerating regular diet. Family History: Unchanged from Admission Social History: Unchanged from Admission Past Medical History: Unchanged from Admission Objective Active Medications: Al Hydrox/Mg Hydrox/Simethicone (Maalox Plus*) 30 ml PO Q6H PRN PRN Reason: indigestion/chest pain Aspirin (Aspirin Low Dose Tab*) 81 mg PO DAILY [facility] Last Admin: 05/29/17 08:48 Dose: 81 mg Atorvastatin Calcium (Lipitor*) 10 mg PO 1700 [facility] Last Admin: 05/28/17 17:59 Dose: 10 mg Docusate Sodium (Colace Cap*) 100 mg PO DAILY [facility] Last Admin: 05/29/17 08:49 Dose: 100 mg Gabapentin (Neurontin Cap(*)) 300 mg PO QAM [facility] Last Admin: 05/29/17 08:49 Dose: 300 mg Gabapentin (Neurontin Cap(*)) 600 mg PO QPM [facility] Last Admin: 05/28/17 17:59 Dose: 600 mg Heparin Sodium (Porcine) (Heparin Vial(*)) 5,000 units SUBCUT Q8HR [facility] Last Admin: 05/29/17 06:24 Dose: 5,000 units Heparin Sodium (Porcine) (Heparin Flush Picc/Ml/Cvc(*)) 1 ml FLUSH 0600,1800 [facility] PRN Reason: Protocol Last Admin: 05/29/17 06:28 Dose: 1 ml Hydralazine HCl (Apresoline Iv*) 5 mg IV SLOW PU Q6H PRN PRN Reason: sBP>180mmHG Last Admin: 05/26/17 13:07 Dose: 5 mg Lactated Ringer's (Lactated Ringers 1000 Ml Bag*) 1,000 mls @ 110 mls/hr IV PER RATE [facility] Last Admin: 05/28/17 12:37 Dose: 110 mls/hr Levothyroxine Sodium (Synthroid Tab*) 50 mcg PO 0600 [facility] Last Admin: 05/29/17 06:24 Dose: 50 mcg Lisinopril (Prinivil Tab*) 30 mg PO DAILY [facility] Last Admin: 05/29/17 08:48 Dose: 30 mg Morphine Sulfate (Morphine Inj (Syringe)*) 2 mg IV Q2H PRN PRN Reason: PAIN Omeprazole (Prilosec Cap*) 20 mg PO DAILY [facility] Last Admin: 05/29/17 08:49 Dose: 20 mg Ondansetron HCl (Zofran Inj*) 4 mg IV Q4H PRN PRN Reason: NAUSEA/VOMITING Last Admin: 05/25/17 07:37 Dose: 4 mg Oxycodone HCl (Roxycodone Tab*) 5 mg PO TID PRN PRN Reason: PAIN Last Admin: 05/28/17 01:29 Dose: 5 mg Prochlorperazine Edisylate (Compazine Inj*) 5 mg IV Q6H PRN PRN Reason: NAUSEA/VOMITING Last Admin: 05/25/17 05:22 Dose: 5 mg Vital Signs 05/28/17 05/28/17 05/28/17 11:28 11:42 15:29 Temperature 98.4 F 97.9 F Pulse Rate 89 104 Respiratory 16 16 16 Rate Blood Pressure 175/87 174/85 (mmHg) O2 Sat by Pulse 95 96 Oximetry 05/28/17 05/28/17 05/28/17 17:59 19:56 19:59 Temperature 98.0 F Pulse Rate 97 Respiratory 16 16 17 Rate Blood Pressure 165/79 (mmHg) O2 Sat by Pulse 94 Oximetry 05/28/17 05/28/17 05/29/17 20:00 23:29 00:00 Temperature 98.3 F Pulse Rate 88 Respiratory 17 Rate Blood Pressure 132/65 (mmHg) O2 Sat by Pulse 96 96 Oximetry 05/29/17 05/29/17 05/29/17 03:55 07:28 07:45 Temperature 97.8 F 98.0 F Pulse Rate 89 93 Respiratory 20 16 16 Rate Blood Pressure 145/79 172/76 (mmHg) O2 Sat by Pulse 94 96 Oximetry 05/29/17 08:49 Temperature Pulse Rate Respiratory 16 Rate Blood Pressure (mmHg) O2 Sat by Pulse Oximetry Oxygen Devices in Use Now: None Appearance: WD/WN elderly woman sitting in her chair in NAD Eyes: No Scleral Icterus Ears/Nose/Mouth/Throat: Mucous Membranes Moist Neck: No Thyroid Enlargement, Masses Respiratory: Clear to Auscultation Cardiovascular: - - S1S2 marysol Abdominal: No Hepatosplenomegaly Lymphatic: No Cervical Adenopathy Extremities: No Clubbing, Cyanosis Skin: No Rash or Ulcers Neurological: Alert and Oriented x 3 Result Diagrams: 05/28/17 05:05 05/29/17 06:35 Additional Lab and Data: . Diagnostic Imaging: KUB / - moderately dilated loops of small bowel, decompressed stomach KUB 05/22 - some improvement in small bowel dilitation, stool present in large colon KUB 05/23 - persistently dilated loops of SB with moderate stool in large colon, little change since yesterday KUB 05/24 - no significant change CT abd/pelvis - distended stomach and SB with transition zone in RLQ. Constipation resolved Assess/Plan/Problems-Billing Assessment: Ms. Ravi is an 87 yo female with HTN, hypothyroidism, h/o TIA and chronic back pain which she has been treating with increasing doses of opiates who presents with abd pain, n/v with evidence of partial SBO and constipation. - Patient Problems (1) SBO (small bowel obstruction) Current Visit: Yes Status: Acute Code(s): K56.69 - OTHER INTESTINAL OBSTRUCTION SNOMED Code(s): 831052176 Comment: S/P EXP lap and FRANSISCO, POD #3 Doing well. likely dc in am. (2) Atrial fibrillation Current Visit: Yes Status: Acute Code(s): I48.91 - UNSPECIFIED ATRIAL FIBRILLATION SNOMED Code(s): 02445922 Comment: Brief episode of rapid afib Converted to sinus No anticoagulation at this time due to minimal afib (3) Chest pain Current Visit: Yes Status: Acute Code(s): R07.9 - CHEST PAIN, UNSPECIFIED SNOMED Code(s): 32819240 Comment: Highly unlikely ACS Trop mildly elevated to 0.05 but baseline is 0.04 and stable - perhaps demand ischemia No ischemic changes on EKG Pain may be due to GERD (4) Electrolyte abnormality Current Visit: Yes Status: Acute Code(s): E87.8 - OTH DISORDERS OF ELECTROLYTE AND FLUID BALANCE, NEC SNOMED Code(s): 711670868 Comment: Hypokalemia - Should improve with magnesium replacement. Give 40 meq po today. Hypomagnesemia Resolved (5) Hyponatremia Current Visit: Yes Status: Acute Code(s): E87.1 - HYPO-OSMOLALITY AND HYPONATREMIA SNOMED Code(s): 12520321 Comment: Resolved (6) HTN (hypertension) Current Visit: No Status: Chronic Code(s): I10 - ESSENTIAL (PRIMARY) HYPERTENSION SNOMED Code(s): 74717139 Comment: Still high. Add amlodipine 5 mg (7) Hypothyroidism Current Visit: No Status: Chronic Code(s): E03.9 - HYPOTHYROIDISM, UNSPECIFIED SNOMED Code(s): 26553743 Comment: Stable on levothyroxine (8) DVT prophylaxis Current Visit: Yes Status: Acute Code(s): IXF2775 - SNOMED Code(s): 096571520 Comment: - SQ heparin (9) Full code status Current Visit: Yes Status: Acute Code(s): Z78.9 - OTHER SPECIFIED HEALTH STATUS SNOMED Code(s): 672798911 Status and Disposition: Dc tomorrow am if still stable
[2017-05-29] MEDS ORDERED: Potassium Chlor TAB* 20 MEQ TAB.ER PO ONE (10:44)
[2017-05-29] MEDS: amLODIPine TAB* 5 MG PO SCH (13:00)
[2017-05-29] MEDS: Atorvastatin* 10 MG TAB PO SCH (17:41)
[2017-05-29] MEDS: Al Hydrox/Mg Hydrox/Simet LIQ* 30 ML UDC PO PRN (19:23)
[2017-05-29] MEDS: Ondansetron INJ* 2 MG/ML VIAL IV PRN (22:02)
[2017-05-30] MEDS: Al Hydrox/Mg Hydrox/Simet LIQ* 30 ML UDC PO PRN (03:07)
[2017-05-30] MEDS: Heparin VIAL(*) 5000 UNITS/ML VIAL (FIVE THOUSAND) SUBCUT SCH (05:45)
[2017-05-30] MEDS: Levothyroxine TAB* 50 MCG TAB PO SCH (05:45)
[2017-05-30 06:21] LABS: BUN/Creatinine Ratio 19.3 (8-20); Calcium 8.1 mg/dL (8.6-10.3); EGFR African American 128.7 (>60); EGFR Non-African American 100.1 (>60); Potassium 3.6 mmol/L (3.5-5.0)
[2017-05-30 08:46] VITALS: BP 173/83
[2017-05-30] MEDS: Lisinopril TAB* 10 MG PO SCH (08:49)
[2017-05-30] MEDS: Aspirin Low Dose CHEW TAB* 81 MG PO SCH (08:49)
[2017-05-30] MEDS: amLODIPine TAB* 5 MG PO SCH (08:50)
[2017-05-30] MEDS: Omeprazole CAP* 20 MG PO SCH (08:50)
[2017-05-30] MEDS: Docusate CAP* 100 MG PO SCH (08:50)
[2017-05-30] MEDS: Gabapentin CAP(*) 300 MG PO SCH (08:55)
--- NOTE | 2017-05-30 10:53 | PN ---
Progress Note - Progress Note Date of Service: 05/30/17 SOAP: Subjective: Passing flatus. Tolerating po. No pain. Objective: Vital Signs Temp 98.5 F 05/30/17 07:54 Pulse 86 05/30/17 07:54 Resp 16 05/30/17 08:55 BP 173/83 05/30/17 07:54 Pulse Ox 97 05/30/17 07:54 Gen: NAD; sitting up in bed. Lungs: CTA B Heart: reg S1S2 Abd: incis c/d/i; no erythema; soft and NT; distended with BS+ Intake & Output 05/29/17 05/30/17 05/30/17 18:59 06:59 18:59 Intake Total 807 800 Output Total 900 600 Balance -93 200 Intake: Oral 807 800 Output: Urine 900 600 Other: # Bowel Movements 1 Estimated Stool Amount Small Laboratory Results - last 24 hr 05/30/17 05:48 Sodium 135 Potassium 3.6 Chloride 99 L Carbon Dioxide 33 H Anion Gap 3 BUN 11 Creatinine 0.57 Est GFR ( Amer) 128.7 Est GFR (Non-Af Amer) 100.1 BUN/Creatinine Ratio 19.3 Glucose 123 H Calcium 8.1 L Assessment: POD# 4 s/p lap FRANSISCO; doing well; OK to discharge. Plan: D/C femoral line. Home today with follow-up on with Dr. Tao. Discussed with pt and Dr. Regalado.
--- NOTE | 2017-05-30 22:30 | DS ---
CC: Dr. Mamie Caban; Dr. Khai Tao, Surgery * DISCHARGE SUMMARY: DATE OF ADMISSION: 05/20/17 DATE OF DISCHARGE: 05/30/17 PRIMARY CARE PHYSICIAN: Dr. Mamie Caban. ADMISSION DIAGNOSES: 1. Small bowel obstruction. 2. Constipation. 3. Hypertension. 4. Hypothyroidism. 5. Chronic back pain. DISCHARGE DIAGNOSES: 1. Small bowel obstruction. 2. Constipation. 3. Hypertension. 4. Hypothyroidism. 5. Chronic back pain. HOSPITAL COURSE: The patient is an 87-year-old woman, who presented to [facility] with a chief complaint of episodes of nausea, vomiting, and inability to keep liquids or solids in her stomach. The patient was found to have some constipation. She was obstructed. She was not passing gas. The patient did have a CAT scan of her abdomen and pelvis. The initial thought was there was constipation from narcotic use. A few days later, Surgery was consulted and agreed that there was a small bowel obstruction. The patient eventually required lysis of adhesions on 05/26/17. The patient did very well. The patient progressed in her bowel regimen and eventually passed gas, had normal bowel movements, and was feeling much better and anxious to go home. The patient was stable for discharge on 05/30/17. PHYSICAL EXAMINATION: The patient unavailable for physical exam on the date of discharge, but discussed with daughter and the patient feels well with no complaints. STUDIES DONE WHILE IN THE HOSPITAL: 1. Abdominal x-rays, 05/24/17, impression: Small bowel dilatation consistent with small bowel obstruction, not significantly changed since 05/23/17. 2. Abdominal and pelvic CT, 05/25/17, impression: Distended and dilated small bowel diffusely with the transition point the right lower quadrant consistent with small bowel obstruction, cholelithiasis, atherosclerosis, small bilateral pleural effusions, 1.1-cm left lower lobe lung mass, incompletely evaluated in the current examination, recommend consideration of dedicated imaging of the CT of the chest, diverticulosis. 3. Chest x-ray, 05/25/17, impression: Nasogastric tube projects over the body of the stomach. DISCHARGE MEDICATIONS: 1. Oxycodone 5 mg 3 times a day as needed for pain. 2. Tylenol 1000 mg every 6 hours as needed for pain. 3. Docusate 100 mg daily as needed. 4. Levothyroxine 50 mcg daily. 5. Gabapentin 300 mg in the morning, 600 mg in the evening. 6. Lipitor 10 mg daily. 7. Aspirin 81 mg daily. 8. Omeprazole 20 mg daily. 9. Lisinopril 30 mg daily. 10. Amlodipine 5 mg daily. 11. Levothyroxine 50 mcg daily. DISCHARGE PLAN: The patient will be discharged home. The patient is to follow up with her PCP within 1 week. The patient is to follow up with Surgery within 1 to 2 weeks. The patient will return to the ED if symptoms recur. TIME SPENT: Over 40 minutes was spent on this discharge, more than 20 minutes of which was spent in direct [id number] contact with the patient in evaluation , physical exam, counseling, and coordination of care. [id number]/[facility] #: [id number] TJ
== END 2017-05-30 15:00 | disposition home health service (06) | DRG 336 ==
LOC: ED 08:38 → MED 14:17 → MEDTELE 05-24 05:10 → SSU 05-26 17:58
PROVIDERS: ADMIT Hospitalist; ATTEND Internal Medicine
PROC: 0D9670Z Drainage of Stomach with Drainage Device, Via Natural or Artificial Opening (ICD-10-PCS; principal; 2017-05-20)
PROC: 3E0234Z Introduction of Serum, Toxoid and Vaccine into Muscle, Percutaneous Approach (ICD-10-PCS; 2017-05-21)
PROC: 0DNB4ZZ Release Ileum, Percutaneous Endoscopic Approach (ICD-10-PCS; 2017-05-26)
PROC: 0DNS4ZZ (ICD-10-PCS; 2017-05-26)
PROC: 06HM33Z Insertion of Infusion Device into Right Femoral Vein, Percutaneous Approach (ICD-10-PCS; 2017-05-26)
PROC: 0W9G4ZZ Drainage of Peritoneal Cavity, Percutaneous Endoscopic Approach (ICD-10-PCS; 2017-05-26)
DX: K56.5 Intestinal adhesions [bands] with obstruction (postinfection) (principal); E87.1 Hypo-osmolality and hyponatremia; J90 Pleural effusion, not elsewhere classified; R18.8 Other ascites; I48.91 Unspecified atrial fibrillation; E83.42 Hypomagnesemia; G89.29 Other chronic pain; I10 Essential (primary) hypertension; E03.9 Hypothyroidism, unspecified; M54.9 Dorsalgia, unspecified; K59.00 Constipation, unspecified; K21.9 Gastro-esophageal reflux disease without esophagitis; E78.5 Hyperlipidemia, unspecified; M19.042 Primary osteoarthritis, left hand; M19.041 Primary osteoarthritis, right hand; R07.9 Chest pain, unspecified; E87.6 Hypokalemia; K63.4 Enteroptosis; K80.20 Calculus of gallbladder without cholecystitis without obstruction; K57.90 Diverticulosis of intestine, part unspecified, without perforation or abscess without bleeding; R91.8 Other nonspecific abnormal finding of lung field; Z79.82 Long term (current) use of aspirin; Z86.73 Personal history of transient ischemic attack (TIA), and cerebral infarction without residual deficits; Z85.3 Personal history of malignant neoplasm of breast; Z85.72 Personal history of non-Hodgkin lymphomas; Z92.3 Personal history of irradiation; Z90.710 Acquired absence of both cervix and uterus; Z88.0 Allergy status to penicillin; Z98.42 Cataract extraction status, left eye; Z98.41 Cataract extraction status, right eye; Z92.21 Personal history of antineoplastic chemotherapy; Z85.828 Personal history of other malignant neoplasm of skin; Z23 Encounter for immunization
CPT/HCPCS: 36415; 71010; 74000; 74020; 74177; 80048; 80053; 81003; 81015; 83605; 83690; 83735; 83880; 84484; 85025; 85610; 85730; 86140; 87086; 90686; 93005; 94760; A9270-GY; J0330; J0360; J0780; J1100; J1644; J1650; J2270; J2405; J2704; J2765; J3010; J3475; J3480; Q9967

== ENCOUNTER 2018-09-15 09:17 | Emergency (ER) | payer MEDICARE ==
--- NOTE | 2018-09-15 09:51 | ED ---
Back Pain - HPI Summary HPI Summary: This pt is an 88 y/o female presenting to [facility] c/o lower back pain for the past few days. Pt states her pain is constant below the waist and it radiates across her back. Does not radiate down the legs. Movement does not change her pain. She states her pain is very severe and different from back pain in the past. She notes she has been constipated for 2 days and this morning had a bowel movement. Denies abd pain, urinary or bowel incontinence, vomiting, chest pain, SOB, dysuria, urinary frequency, hematuria, numbness, weakness, tingling in LE. She took an oxycodone 1 hour [employer] without relief. Pt has been taking oxycodone for the past couple of days for her shoulder pain. PMHx: bowel obstruction 1 year ago (no vomiting during this episode), UTI about 34 years ago. No hx of DM or kidney stones. Pt is not taking steroids. - History of Current Complaint Chief Complaint: EDBackInjuryPain Stated Complaint: SEVERE BACK PAIN Time Seen by Provider: 09/15/18 09:27 Hx Obtained From: Patient, Family/Table Games Manager - Daughter Onset/Duration: Lasting Days, Still Present Onset/Duration: Started Days Ago, Still Present Timing: Lasting Days Back Pain Location: Is Discrete @ - lower back, Radiates To - across her back Severity Currently: Severe Pain Intensity: 7 Pain Scale Used: 0-10 Numeric Character: Aching Aggravating Symptom(s): Nothing Alleviating Symptom(s): Nothing Associated Signs And Symptoms: Negative: Fever, Weakness, Numbness, Tingling, Abdominal Pain, Bladder Incontinence, Bowel Incontinence - Allergies/Home Medications Allergies/Adverse Reactions: Allergies Allergy/AdvReac Type Severity Reaction Status Date / Time penicillin G Allergy Hives Verified 09/15/18 10:23 PMH/Surg Hx/FS Hx/Imm Hx Endocrine/Hematology History: Denies: Hx Diabetes, Hx Systemic Lupus Erythematosus Cardiovascular History: Reports: Hx Hypercholesterolemia, Hx Hypertension Denies: Hx Congestive Heart Failure, Hx Pacemaker/ICD Respiratory History: Reports: Other Respiratory Problems/Disorders - radiation left side neck 2012 GI History: Reports: Hx Gastroesophageal Reflux Disease History: Denies: Hx Dialysis, Hx Renal Disease Musculoskeletal History: Reports: Hx Arthritis - HANDS, Other Musculoskeletal History - back pain and surgery, hx bilat wrist fx Denies: Hx Rheumatoid Arthritis, Hx Scoliosis Sensory History: Reports: Hx Cataracts - BILATERAL, Hx Contacts or Glasses Denies: Hx Hearing Aid Opthamlomology History: Reports: Hx Cataracts - BILATERAL, Hx Contacts or Glasses Neurological History: Reports: Other Neuro Impairments/Disorders - RADIATION AND CHEMO 2011 FOR LYMPHOMA Denies: Hx Headaches Psychiatric History: Denies: Hx Panic Disorder - Cancer History Cancer Type, Location and Year: breast ca left, basal cell, lymphoma Hx Chemotherapy: Yes - LYMPHOMA 2011 Hx Radiation Therapy: Yes - BREAST 1986,LYMPHOMA 2011 - Surgical History Surgery Procedure, Year, and Place: hysterectomy 1978 [facility]; lumpectomy left BREAST ca 1986 [facility]; partial thyroidectomy 1996 [facility]; 2010 BILATERAL CATARACTS [facility]; 1998 HERNIATED LUMBAR DISC [facility]. [facility]PA[facility]; BREAST SURGERY X 4 Hx Anesthesia Reactions: No Infectious Disease History: No Infectious Disease History: Denies: Traveled Outside the [place] in Last 30 Days - Family History Known Family History: Negative: Other - breast CA - Social History Alcohol Use: None Alcohol Amount: FEW DRINKS A YEAR, SPECIAL OCCASSIONS Substance Use Type: Reports: None Substance Use Comment - Amount & Last Used: oxycodone Smoking Status (MU): Never Smoked Tobacco Have You Smoked in the Last Year: No Review of Systems Negative: Fever, Chills Negative: Erythema Negative: Sore Throat Negative: Chest Pain Negative: Shortness Of Breath Gastrointestinal: Other - POS: constipation Negative: Abdominal Pain, Vomiting, Nausea Negative: dysuria, hematuria, incontinence Musculoskeletal: Other - POSITIVE: back pain Negative: Myalgia, Edema Negative: Rash Neurological: Other - NEGATIVE: dizziness Negative: Weakness, Paresthesia, Numbness All Other Systems Reviewed And Are Negative: Yes Physical Exam - Summary Physical Exam Summary: Constitutional: Well-developed, Well-nourished, Alert. (-) Distressed Skin: Warm, Dry HENT: Normocephalic; Atraumatic Eyes: Conjunctiva normal Neck: Musculoskeletal ROM normal neck. (-) JVD, (-) Stridor, (-) Tracheal deviation Cardio: Rhythm regular, rate normal, Heart sounds normal; Intact distal pulses; The pedal pulses are 2+ and symmetric. Radial pulses are 2+ and symmetric. (-) Murmur Pulmonary/Chest wall: Effort normal. (-) Respiratory distress, (-) Wheezes, (-) Rales Abd: Soft, Mild LLQ tenderness, (-) Distension, (-) Guarding, (-) Rebound Musculoskeletal: (-) Edema. Bilateral lower extremity strength 5/5. No CVA tenderness. Lymph: (-) Cervical adenopathy Neuro: Alert, Oriented x3 Psych: Mood and affect Normal Triage Information Reviewed: Yes Vital Signs On Initial Exam: Initial Vitals Temp Pulse Resp BP Pulse Ox 98.3 F 74 18 184/83 99 09/15/18 09:21 09/15/18 09:21 09/15/18 09:21 09/15/18 09:21 09/15/18 09:21 Vital Signs Reviewed: Yes Diagnostics - Vital Signs Vital Signs Temp Pulse Resp BP Pulse Ox 09/15/18 09:21 98.3 F 74 18 184/83 99 - Laboratory Result Diagrams: 09/15/18 10:06 09/15/18 10:06 Lab Statement: Any lab studies that have been ordered have been reviewed, and results considered in the medical decision making process. - CT Abdomen/Pelvis CT CT Interpretation Completed By: Radiologist Summary of CT Findings: IMPRESSION: Cholelithiasis without biliary duct dilatation. Hepatic cyst. No evidence of obstructive uropathy is noted. No oher masses or fluid collections are noted. Dr. Lua has reviewed this report. Re-Evaluation - Re-Evaluation First Eval Re-Evaluation Time: 11:05 Comment: Reviewed CT results with the pt. She will be discharged home with follow up from PCP. Back Pain Course/Dx - Course Assessment/Plan: Pt is an 88 y/o female presenting to [facility] c/o lower back pain for the past few days and constipation x2 days. Pt states her pain is constant below the waist and it radiates across her back, she rates her pain as severe. Abdomen/Pelvis CT shows cholelithiasis without biliary duct dilatation. Hepatic cyst. No evidence of obstructive uropathy is noted. No oher masses or fluid collections are noted. I discussed the case with Dr. Linares who agrees there is a large stool burden. There are no signs or symptoms of cauda equina syndrome, she has no neurological deficits. Her urine is negative. No signs of kidney stones or pyelonephritis. Her pain is most likely related to constipation, will pursue a bowel regimen. In the ED course the pt was given lidocaine patch, magnesium citrate, percocet. Pt will be discharged home with follow up from her PCP in 2-3 days. Pt was instructed to follow high fiber diet and use heating pad as needed. She was given prescriptions for stool softener and Miralax. Pt was also instructed to return to the ED for any worsening or new symptoms. - Diagnoses Provider Diagnoses: Constipation, Low back pain, Gallstone - Provider Notifications Discussed Care Of Patient With: Mamta Linares Time Discussed With Above Provider: 10:55 Instructed by Provider To: Other - I discussed the case with Dr. Linares, radiologist, who agrees there is a large stool burden. Discharge - Sign-Out/Discharge Documenting (check all that apply): Patient Departure - Discharge home - Discharge Plan Condition: Stable Disposition: HOME Prescriptions: Docusate Sodium [Stool Softener] 100 mg PO BID #60 tablet Polyethylene Glycol 3350* [Miralax*] 17 gm PO DAILY #14 packet Patient Education Materials: Gallstones (ED) Referrals: Mamie Caban MD [Primary Care Provider] - 2 Days (in 2-3 days.) Additional Instructions: Apply heating pad as needed. Follow up with your primary care provider in 2-3 days. RETURN TO THE EMERGENCY DEPARTMENT FOR CHANGING OR WORSENING SYMPTOMS. - Attestation Statements Document Initiated by Scribe: Yes Documenting Scribe: Janae Rincon Provider For Whom Scribe is Documenting (Include Credential): Meet Lua MD Scribe Attestation: Janae Adams, scribed for Meet Lua MD on 09/15/18 at 1112. Status of Scribe Document: Ready
[2018-09-15] MEDS ORDERED: Lidocaine PATCH 5%* 1 PATCH ONE (09:59)
[2018-09-15] MEDS ORDERED: Lidocaine PATCH 5%* 1 PATCH TRANSDERM SCH (10:00)
[2018-09-15 10:14] LABS: Hematocrit 41 % (35-47); Hemoglobin 13.8 g/dl (12.0-16.0); Mean Corpuscular HGB Conc 34 g/dl (31-36); Mean Corpuscular Hemoglobin 31 pg (27-31); Mean Corpuscular Volume 91 fL (80-97); Mean Platelet Volume 7.8 fL (7.4-10.4); Platelet Count 213 10^3/ul (150-450); Red Blood Count 4.48 10^6/ul (4.00-5.40); Red Cell Distribution Width 14 % (10.5-15); White Blood Count 5.6 10^3/ul (3.5-10.8)
[2018-09-15 10:17] LABS: Urine Appearance Clear; Urine Bilirubin Negative (Negative); Urine Blood Negative (Negative); Urine Color Yellow; Urine Glucose Negative (Negative); Urine Ketones Negative (Negative); Urine Nitrite Negative (Negative); Urine Protein Negative (Negative); Urine Specific Gravity 1.016 (1.010-1.030); Urine Urobilinogen Negative (Negative)
[2018-09-15 10:40] LABS: ALT 22 U/L (7-52); AST 27 U/L (13-39); Albumin 4.3 g/dL (3.2-5.2); Albumin/Globulin Ratio 1.7 (1-3); Alkaline Phosphatase 103 U/L (34-104); Anion Gap 6 mmol/L (2-11); Blood Urea Nitrogen 15 mg/dL (6-24); C Reactive Protein < 1.00 mg/L (<8.01); CO2 Carbon Dioxide 31 mmol/L (22-32); Calcium 9.6 mg/dL (8.6-10.3); Chloride 99 mmol/L (101-111); EGFR Non-African American 68.5 (>60); Globulin 2.6 g/dL (2-4); Glucose 104 mg/dL (70-100); Potassium 4.2 mmol/L (3.5-5.0); Sodium 136 mmol/L (135-145); Total Protein 6.9 g/dL (6.4-8.9)
[2018-09-15] MEDS ORDERED: Magnesium CITRATE* 300 ML BTL PO ONE (10:59)
[2018-09-15] MEDS ORDERED: oxyCODONE/Acetamin 5/325 MG* TAB PO ONE (11:08)
[2018-09-15 11:12] VITALS: BP 161/70
[2018-09-15] MEDS ORDERED: Lidocaine Patch REMOVE* 1 NOTE MISC SCH (21:00)
== END 2018-09-15 11:24 | disposition home or self-care (01) ==
LOC: ED 09:17
DX: K80.80 Other cholelithiasis without obstruction (principal); K59.00 Constipation, unspecified; M54.5 Low back pain; Z88.0 Allergy status to penicillin; Z85.3 Personal history of malignant neoplasm of breast
CPT/HCPCS: 36415; 74176; 80053; 81003; 83605; 85027; 86140; 99284; A9270-GY

== ENCOUNTER 2018-09-22 13:34 | Emergency (ER) | payer MEDICARE ==
--- NOTE | 2018-09-22 15:13 | ED ---
Back Pain - HPI Summary HPI Summary: Patient presents with continuation of lower back pain. She was seen on with same symptoms and was diagnosed with constipation. Her CT scan also revealed lower degenerative disc disease. Since last discharge she was advised to try a bowel regimen to alleviate her constipation with mag citrate, stool softeners and daily MiraLAX. She reports she had a small thin bowel movements after the mag citrate however has not been having adequate bowel movement since "not enough to clear things up". Also admits she does not drink much water, she has recently had chocolate which constipates her and she continues to take oxycodone. The oxycodone was initially prescribed for shoulder pain which she reports is fine at this time. She simply tried for her back pain but it is still not providing any relief. She takes this in alternation with acetaminophen which is also not helping much. Prior to her symptoms acting up, she reports she is fairly independent and does her own laundry, dishes lives in a trilevel house and goes up and down the stairs frequently. Again today she denies fever, chills, nausea, vomiting, diarrhea, abdominal bloating/pain, dysuria, radiating pain into her buttocks or lower extremities, numbness, tingling, weakness. She does report her appetite is reduced which may be due to pain and/or constipation. In regards to her oxycodone, she was taking this as needed but admits she has been taking it more regularly over the past week. She has not had an issue with dependence in the past and she and daughter do not believe she will have an issue with dependence at this time (i.e. withdrawal symptoms). - History of Current Complaint Chief Complaint: EDBackInjuryPain Stated Complaint: BACK PAIN Time Seen by Provider: 09/22/18 13:50 Hx Obtained From: Patient, Family/Test Fixture Designer - daughter Pain Intensity: 7 - Allergies/Home Medications Allergies/Adverse Reactions: Allergies Allergy/AdvReac Type Severity Reaction Status Date / Time penicillin G Allergy Hives Verified 09/22/18 13:39 PMH/Surg Hx/FS Hx/Imm Hx Previously Healthy: Yes Endocrine/Hematology History: Denies: Hx Anticoagulant Therapy, Hx Blood Disorders, Hx Diabetes, Hx Systemic Lupus Erythematosus, Autoimmune Disease Cardiovascular History: Reports: Hx Hypercholesterolemia, Hx Hypertension Denies: Hx Congestive Heart Failure, Hx Pacemaker/ICD Respiratory History: Reports: Other Respiratory Problems/Disorders - radiation left side neck 2011 GI History: Reports: Hx Gastroesophageal Reflux Disease, Other GI Disorders - 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 History: Denies: Hx Acute Renal Failure, Hx Chronic Renal Failure, Hx Dialysis, Hx Kidney Infection, Hx Kidney Stones, Hx Renal Disease Musculoskeletal History: Reports: Hx Arthritis - HANDS, Hx Back Problems - DDD lumbar spine, Other Musculoskeletal History - back pain and surgery, hx bilat wrist fx Denies: Hx Rheumatoid Arthritis, Hx Scoliosis Sensory History: Reports: Hx Cataracts - BILATERAL, Hx Contacts or Glasses Denies: Hx Hearing Aid Opthamlomology History: Reports: Hx Cataracts - BILATERAL, Hx Contacts or Glasses Neurological History: Reports: Other Neuro Impairments/Disorders - RADIATION AND CHEMO 2011 FOR LYMPHOMA Denies: Hx Headaches Psychiatric History: Denies: Hx Panic Disorder - Cancer History Cancer Type, Location and Year: breast ca left, basal cell, lymphoma Hx Chemotherapy: Yes - LYMPHOMA 2011 Hx Radiation Therapy: Yes - BREAST 1986,LYMPHOMA 2011 - Surgical History Surgery Procedure, Year, and Place: hysterectomy 1978 [facility]; lumpectomy left BREAST ca 1986 [facility]; partial thyroidectomy 1996 [facility]; 2010 [facility]ATERAL [facility]AR[facility]; 1998 HERNIATED LUMBAR DISC [facility]. 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 Hx Tobacco Use: No Smoking Status (MU): Never Smoked Tobacco Have You Smoked in the Last Year: No Review of Systems Constitutional: Negative Negative: Fever, Chills, Fatigue Eyes: Negative ENT: Negative Cardiovascular: Negative Respiratory: Negative Gastrointestinal: Other - reduced appetite Negative: Abdominal Pain, Vomiting, Diarrhea, Nausea Genitourinary: Negative Musculoskeletal: Other - low back pain Skin: Negative Neurological: Negative Positive: Anxious - frustrated with pain All Other Systems Reviewed And Are Negative: Yes Physical Exam Triage Information Reviewed: Yes Vital Signs On Initial Exam: Initial Vitals Temp Pulse Resp BP Pulse Ox 97.7 F 69 18 170/79 97 09/22/18 13:35 09/22/18 13:35 09/22/18 13:35 09/22/18 13:35 09/22/18 13:35 Vital Signs Reviewed: Yes Appearance: Positive: Well-Appearing, Pain Distress - mild - lying on stretcher , Thin Skin: Positive: Warm, Skin Color Reflects Adequate Perfusion, Dry - no erythema , no ecchymosis, no lesions over affected area Head/Face: Positive: Normal Head/Face Inspection Eyes: Positive: Normal, EOMI, Conjunctiva Clear - anicteric sclera ENT: Positive: Hearing grossly normal, Pharynx normal - mucosa moist Respiratory/Lung Sounds: Positive: Clear to Auscultation, Breath Sounds Present Cardiovascular: Positive: Normal, RRR, S1, S2. Negative: Leg Edema Left, Leg Edema Right Abdomen Description: Positive: No Organomegaly, Soft, Other: - mild TTP Bowel Sounds: Positive: Present Pelvic Exam: Positive: Other - deferred Musculoskeletal: Positive: Strength/ROM Intact, Other - reports pain is in lumbosacral region but nothing is TTP Neurological: Positive: Normal, Sensory/Motor Intact, Alert, Oriented to Person Place, Time, CN Intact II-III Psychiatric: Positive: Anxious - concerned about pain Diagnostics - Vital Signs Vital Signs Temp Pulse Resp BP Pulse Ox 09/22/18 13:35 97.7 F 69 18 170/79 97 - Laboratory Lab Statement: Any lab studies that have been ordered have been reviewed, and results considered in the medical decision making process. Back Pain Course/Dx - Course Course Of Treatment: Suspect her pain is a combination of exacerbation of lumbar DDD and constipation. Discussed a plan to address both issues and alleviate pain as well as attack the root causes of her pain. Had pt repeat the plan back to me and she was reluctant to say she would stop taking her oxycodone but she did verbalize understanding this causes constipation. Also understands we are providing 2 new medications to address her pain, ibuprofen and prednisone. She will f/u w/ PCP moving forward and return to ED w/ danger s/ sx. See d/c for details of plan. - Diagnoses Provider Diagnoses: Lumbar degenerative disc disease, Constipation Discharge - Sign-Out/Discharge Documenting (check all that apply): Patient Departure - Discharge Plan Condition: Stable Disposition: HOME Prescriptions: predniSONE TAB* [Deltasone 20 MG TAB*] 20 mg PO DAILY #5 tab Patient Education Materials: Constipation (ED), Degenerative Disc Disease (ED) Referrals: Mamie Caban MD [Primary Care Provider] - Additional Instructions: We have discussed potential causes of your back pain today to include both constipation as well as arthritis flair up. In an effort to address your pain, you will be started on anti-inflammatory pain medications, prednisone and ibuprofen 400mg every 4 hours with food as needed for pain. These have been sent to your pharmacy - take as directed. To address her constipation, it is important that you implement the following: *Stop oxycodone, percocet, and any other narcotic pain medications - these cause constipation and will make your condition worse *Drink half your body weight in ounces of water daily (60 ounces) - you may include juices, broth, coconut water and Gatorade to aid in this process. If you do not drink enough fluid, the medications are taking for constipation will not work and cause more pain. It is also important that you avoid diuretics such as caffeine (ie. coffee, tea, iced tea, candace, alcohol) to avoid dehydration *Restart magnesium citrate x 1 only - TAKE WITH LOTS OF WATER OTHERWISE THIS WILL NOT WORK AND MAY CAUSE WORSENING OF PAIN *Continue daily miralax and stool softeners - AGAIN WITH LOTS OF WATER OR IT WILL NOT WORK AND MAY CAUSE WORSENING OF PAIN *Additionally, you may try a suppository *If these are not effective, you may try an enema *If you are still unable to move your bowels after 4 days and trying all regimens and/or if you develop abdominal pain/vomiting/fever, return to the ED - Billing Disposition and Condition Condition: STABLE Disposition: Home
[2018-09-22] MEDS ORDERED: Ibuprofen TAB* 400 MG PO ONE (15:48)
[2018-09-22] MEDS ORDERED: predniSONE TAB* 20 MG PO ONE (15:48)
[2018-09-22 16:26] VITALS: BP 168/83
== END 2018-09-22 16:13 | disposition home or self-care (01) ==
LOC: ED 13:34
DX: M51.36 Other intervertebral disc degeneration, lumbar region (principal); K59.00 Constipation, unspecified; E78.00 Pure hypercholesterolemia, unspecified; I10 Essential (primary) hypertension; K21.9 Gastro-esophageal reflux disease without esophagitis; Z85.3 Personal history of malignant neoplasm of breast; Z85.72 Personal history of non-Hodgkin lymphomas
CPT/HCPCS: 99282; A9270-GY; J7512